=== PATIENT | female | born 1935 | race Caucasian/White ===

== ENCOUNTER 2019-07-07 03:18 | Inpatient (IN) | payer OTHER, MEDICARE ==
[2019-07-07] MEDS ORDERED: SODIUM CHLORIDE 500 ML IV STA (04:44)
[2019-07-07] MEDS ORDERED: ACETAMINOPHEN 1000 MG/100 ML VIAL (NON FORMULARY) IVPB ONE (04:45)
[2019-07-07] MEDS ORDERED: ACETAMINOPHEN INJECTION 100 ML IVPB ONE (05:03)
[2019-07-07 05:07] LABS: BASO % 0.1 % (0-2.0); EOS % 0.2 % (0-4.5); HEMATOCRIT 35.8 % (32.4-45.2); HEMOGLOBIN 12.1 GM/dL (10.7-15.3); LYMPH % 4.3 % (8-40); MCH 33.7 pg (25.7-33.7); MCHC 33.8 g/dl (32.0-36.0); MEAN CELL VOLUME 99.5 fl (80-96); MEAN PLT VOLUME 7.3 fl (7.5-11.1); MONO % 8.7 % (3.8-10.2); NEUT % 86.7 % (42.8-82.8); PLATELET COUNT 319 K/MM3 (134-434); RDW 12.9 % (11.6-15.6); WHITE BLOOD COUNT 12.3 K/mm3 (4.0-10.0)
--- NOTE | 2019-07-07 05:24 | PDOC ---
Attending Attestation - Resident Resident Name: Kevyn Silva - ED Attending Attestation I have performed the following: I have examined & evaluated the patient, The case was reviewed & discussed with the resident, I agree w/resident's findings & plan, Exceptions are as noted - HPI HPI: 07/07/19 07:35 84F pmh COPD, AFib, HTN, here after a fall early this morning. Unclear if mechanical or syncopal, denies prodrome, dizziness, sob. Endorses substernal, L sided, squeezing chest pain, radiating to neck and shoulder. States she has been falling frequently over the past several weeks. - Physicial Exam PE: 07/07/19 07:36 Agree with exam as documented by resident - Medical Decision Making 07/07/19 07:37 84F c/o typical chest pain, frequent falls, eval for UTI, trauma pathology f/u labs, ekg, cxr, ctb, ctcs mild wbc elevation ekg slow afib, no ischemia UA neg initial trop neg will need admission for w/u of typical cp hold asa for results of ctb/cs
[2019-07-07 05:27] LABS: INR 1.84 (0.83-1.09); PROTHROMBIN TIME (PATIENT) 21.9 SEC (9.7-13.0)
--- NOTE | 2019-07-07 05:30 | PDOC ---
History of Present Illness - General Chief Complaint: Injury Stated Complaint: FALL Time Seen by Provider: 07/07/19 04:33 History Source: Patient Exam Limitations: Clinical Condition - History of Present Illness Initial Comments: Virginia Milton is an 84 yo F w a pmh of COPD, colitis, chronic UTI's, HTN, lung nodule cancer, afib, anxiety, and insomnia who presents to the ER after she fell down this morning at 3 am. Now the patient has chest, neck, and back pain. The patient states her chest pain is substernal and radiates to the neck, shoulder, and back. The patient states she has been falling down frequently lately. She wishes she had one of those buttons she could click to call for help. She states she did not hit her head or experience any LOC. She states that she is on multiple blood thinners - both anti-coagulants and anti- platelets but she does not know the names of the blood thinners she is on. PCP: Dr. Haines Cards: Dr. Jules PSH: appendectomy, cholecystectomy Social Hx: Lives alone has no help. Denies current smoking, drinking, or substance usage. Past History - Past Medical History Allergies/Adverse Reactions: Allergies Allergy/AdvReac Type Severity Reaction Status Date / Time meperidine HCl [From Demerol] AdvReac Intermediate Vomiting Verified 07/07/19 03 :29 lactose-intolerant AdvReac Uncoded 07/07/19 03:29 Home Medications: Ambulatory Orders Carvedilol [Coreg -] 3.125 mg PO BID 07/07/19 Dabigatran Etexilate Mesylate [Pradaxa -] 150 mg PO BID 07/07/19 Digoxin [Lanoxin -] 0.125 mg PO DAILY 07/07/19 Fluticasone Prop 0.05% Nasal [Flonase -] 1 - 2 spray NS DAILY PRN 07/07/19 Umeclidinium [place] [Incruse Ellipta] 62.5 mcg IH DAILY 07/07/19 Anemia: No Asthma: No Cancer: Yes ((L) BREAST LUMPECTOMY) Cardiac Disorders: Yes (A.FIB) CVA: No COPD: No CHF: No Dementia: No Diabetes: No GI Disorders: Yes (COLITIS / DIVERTICULITIS) Disorders: (chronic UTI's) HTN: Yes Hypercholesterolemia: No Liver Disease: No Seizures: No Thyroid Disease: No - Surgical History Abdominal Surgery: Yes Appendectomy: Yes Cardiac Surgery: No Cholecystectomy: Yes Lung Surgery: No Neurologic Surgery: No Orthopedic Surgery: No - Immunization History Td Vaccination: Yes TDAP Vaccination: No Immunization Up to Date: Yes - Suicide/Smoking/Psychosocial Hx Smoking History: Never smoked Have you smoked in the past 12 months: No If you are a former smoker, when did you quit?: 40 years ago Hx Alcohol Use: Yes (occasional wine) Drug/Substance Use Hx: No Substance Use Type: Alcohol Hx Substance Use Treatment: No Review of Systems - Review of Systems Able to Perform ROS?: No (Poor historian) *Physical Exam - Vital Signs Last Vital Signs Temp Pulse Resp BP Pulse Ox 98.6 F 83 18 152/74 100 07/07/19 03:22 07/07/19 03:22 07/07/19 03:22 07/07/19 03:07/07/19 03:22 - Physical Exam Comments: GENERAL: Patient is awake, alert and in no acute distress. Speech is clear and appropriate. HEAD: Atraumatic and nontender. HEENT: Pupils are equal round and reactive to light, extraocular movements are intact. The tympanic membranes are clear, no hemotympanum. No facial deformity. No facial bone tenderness or step-off. No nasal septal hematoma. The oropharynx is clear. NECK: The trachea is midline, there is no stridor. There is no midline cervical spine tenderness, full range of motion of neck. CHEST: Non-tender, no ecchymosis or abrasions. Equal chest wall expansion bilaterally. No flail segments. Lungs are clear to auscultation bilaterally. CARDIOVASCULAR: S1-S2, regular rate and rhythm. No murmurs or rubs. ABDOMEN: Soft, nontender, nondistended. Bowel sounds are normoactive. There is no abdominal or flank ecchymosis. BACK/PELVIS: There is no midline thoracic or lumbosacral spine tenderness or step-off. Pelvis is stable and nontender. EXTREMITIES: There is no extremity deformity or joint swelling. No focal bony tenderness throughout. 2+ distal pulses throughout. NEURO: Alert and oriented x3. Cranial nerves II through XII are intact. 5 out of 5 motor strength x4 extremities. No gross sensory deficits. [id number] is intact. No pronator drift. SKIN: No abrasions, hematomas, lacerations. PSYCH: Affect is appropriate ED Treatment Course - LABORATORY CBC & Chemistry Diagram: 07/07/19 13:23 07/07/19 13:23 - ADDITIONAL ORDERS Additional order review: Laboratory Results 07/07/19 04:55 PT with INR 21.90 H INR 1.84 H 07/07/19 04:55 RBC 3.60 MCV 99.5 H MCHC 33.8 RDW 12.9 D MPV 7.3 L Neutrophils % 86.7 H Lymphocytes % 4.3 L D Monocytes % 8.7 Eosinophils % 0.2 D Basophils % 0.1 - RADIOLOGY Radiology Studies Ordered: Category Date Time Status CHEST X-RAY PORTABLE* [RAD] Stat Radiology 07/07/19 04:45 Ordered - Medications Given in the ED: ED Medications Discontinued Medications Generic Name Dose Route Start Last Admin Trade Name Freq PRN Reason Stop Dose Admin Acetaminophen 1,000 mg 07/07/19 04:45 07/07/19 05:10 Ofirmev Injection - IVPB 07/07/19 04:46 1,000 mg ONCE ONE Administration Medical Decision Making - Medical Decision Making Virginia Milton is an 84 yo F w a pmh of COPD, colitis, chronic UTI's, HTN, lung nodule cancer, afib, anxiety, and insomnia who presents to the ER after she fell down this morning at 3 am. Now the patient has chest, neck, and back pain. The patient states her chest pain is substernal and radiates to the neck, shoulder, and back. The patient states she has been falling down frequently lately. She wishes she had one of those buttons she could click to call for help. She states she did not hit her head or experience any LOC. She states that she is on multiple blood thinners - both anti-coagulants and anti- platelets but she does not know the names of the blood thinners she is on. Vital Signs Temp Pulse Resp BP Pulse Ox 98.6 F 83 18 152/74 100 07/07/19 03:22 07/07/19 03:22 07/07/19 03:22 07/07/19 03:22 07/07/19 03:22 DDx IBNLT: ACS/TN, arrhythmia, repeated falls, UTI, ICH, cervical fx, Plan: Labs, urine, CXR, ekg, head/neck CT, analgesia, Admit to [facility] for chest pain and repeated falls. Labs: Leukocytosis with left shift, elevated BUN Urine: Unremarkable CXR: Unremarkable EKG: A-fib irreg irreg, IRBBB, non-specific ST abnormality HeadCT: No acute pathology Cervical CT: No acute pathology Disposition: Admit to hospital for Chest pain and repeated falls. Patient will be signed out to day team to complete admission *DC/Admit/Observation/Transfer Diagnosis at time of Disposition: Frequent falls Chest pain Qualifiers: Chest pain type: unspecified Qualified Code(s): R07.9 - Chest pain, unspecified - Discharge Dispostion Condition at time of disposition: Stable - Referrals - Patient Instructions - Post Discharge Activity
[2019-07-07 06:07] LABS: ALK PHOS 132 U/L (45-117); ANION GAP 12 MMOL/L (8-16); BILIRUBIN,TOTAL 0.8 mg/dL (0.2-1); BLOOD UREA NITROGEN 23.7 mg/dL (7-18); CALCIUM 8.7 mg/dL (8.5-10.1); CHLORIDE 100 mmol/L (98-107); CO2 24 mmol/L (21-32); GLUCOSE,RANDOM 118 mg/dL (74-106); POTASSIUM 5.4 mmol/L (3.5-5.1); SGOT/AST 66 U/L (15-37); SGPT/ALT 26 U/L (13-61); SODIUM 137 mmol/L (136-145); TOT PROT 7.4 g/dl (6.4-8.2)
[2019-07-07 06:41] LABS: URINE APPEARANCE CLEAR; URINE BILIRUBIN NEGATIVE (NEGATIVE); URINE COLOR YELLOW; URINE GLUCOSE (UA) NEGATIVE (NEGATIVE); URINE KETONE TRACE (NEGATIVE); URINE LEUK ESTERASE NEGATIVE (NEGATIVE); URINE NITRITE NEGATIVE (NEGATIVE); URINE PROTEIN TRACE (NEGATIVE)
--- NOTE | 2019-07-07 07:26 | PDOC ---
*Physical Exam - Vital Signs Last Vital Signs Temp Pulse Resp BP Pulse Ox 98.6 F 90 20 138/86 100 07/07/19 03:22 07/07/19 06:36 07/07/19 06:36 07/07/19 06:36 07/07/19 03:22 ED Treatment Course - LABORATORY CBC & Chemistry Diagram: 07/07/19 04:55 07/07/19 04:55 - ADDITIONAL ORDERS Additional order review: Laboratory Results 07/07/19 07/07/19 07/07/19 06:30 04:55 04:55 PT with INR 21.90 H INR 1.84 H Sodium 137 Potassium 5.4 H Chloride 100 Carbon Dioxide 24 Anion Gap 12 BUN 23.7 H Creatinine 1.0 Est GFR (CKD-EPI)AfAm 59.08 Est GFR (CKD-EPI)NonAf 50.97 Random Glucose 118 H Calcium 8.7 Magnesium 2.0 Total Bilirubin 0.8 AST 66 H ALT 26 Alkaline Phosphatase 132 H Creatine Kinase 98 Troponin I < 0.02 Total Protein 7.4 Albumin 3.0 L Urine Color Yellow Urine Appearance Clear Urine pH 5.0 Ur Specific [place] 1.030 Urine Protein Trace Urine Glucose (UA) Negative Urine Ketones Trace H Urine Blood Negative Urine Nitrite Negative Urine Bilirubin Negative Urine Urobilinogen 1.0 Ur Leukocyte Esterase Negative 07/07/19 04:55 RBC 3.60 MCV 99.5 H MCHC 33.8 RDW 12.9 D MPV 7.3 L Neutrophils % 86.7 H Lymphocytes % 4.3 L D Monocytes % 8.7 Eosinophils % 0.2 D Basophils % 0.1 - Medications Given in the ED: ED Medications Discontinued Medications Generic Name Dose Route Start Last Admin Trade Name Freq PRN Reason Stop Dose Admin Acetaminophen 1,000 mg 07/07/19 04:45 07/07/19 05:10 Ofirmev Injection - IVPB 07/07/19 04:46 1,000 mg ONCE ONE Administration Sodium Chloride 500 mls @ 500 mls/hr 07/07/19 04:44 07/07/19 05:09 Normal Saline - IV 07/07/19 05:43 500 mls/hr ASDIR STA Administration Medical Decision Making - Medical Decision Making Pt was signed out to me by resident Dr. Silva, who explained the presentation, ED course, any pending results, and needed interventions. Pending results include non-contrast CT head and C-spine. Pt is currently stable and is lying comfortably. 07/07/19 07:22 CT head and C-spine with no acute pathology Paging hospitalist team for admission. 07/07/19 09:36 Pt admitted to hospitalist team (Dr. Sanabria) for cardiac consultation. 07/07/19 10:31 *DC/Admit/Observation/Transfer Diagnosis at time of Disposition: Frequent falls Chest pain Qualifiers: Chest pain type: unspecified Qualified Code(s): R07.9 - Chest pain, unspecified - Discharge Dispostion Condition at time of disposition: Stable Decision to Admit order: Yes - Referrals Referrals: Fercho Haines MD [Primary Care Provider] - - Patient Instructions - Post Discharge Activity
[2019-07-07] MEDS ORDERED: morphine CARPU-JECT 4 MG/1 ML DISP.SYRIN IVPUSH ONE (07:28)
[2019-07-07] MEDS ORDERED: MORPHINE SULFATE 2 MG/ML VIAL ONE (08:08)
--- NOTE | 2019-07-07 11:28 | HP ---
CHIEF COMPLAINT: Fall PCP: Dr. Haines HISTORY OF PRESENT ILLNESS: 84 y/o F with PMHx of AFib (on NOAC), Chronic bronchitis (?COPD, not on home O2) , HTN, Chronic UTI's, Diverticulitis, Colitis, Cataracts, Anxiety, Insomnia presents after a mechanical fall, with 3 week hx of chest pain. Last evening aroun 20:30 hours, patient walked into a dark room, tripped over an object and fell into a laundry basket and landed on her right shoulder. Since then she has had worsening Right shoulder, neck and knee pain. Denies any preceeding dizziness, lightheadedness or any subsequent LOC or hitting her head. She then crawled to her bed, eventually pulling herself up and took 2 tylenol. The pain in her back and neck continued to worsen prompting her to visit the ED. She mentions that her chronic bronchitis is worsening now with increasing cough productive of more clear sputum. She started to have a chest pain 3 weeks ago described as a dull pain, 5/10 over both sides of her chest that she thought was due to her coughing. Last night, her pain worsened after the fall to a 10/ 10 sharp, nonreproducbile pain over her left chest without any radiation. She is unable to identify any trigger but mentions it worsens with coughing. Additionally, Tylenol provides some releif. She is medication complaint. Otherwise denies any associated trauma or falls. Her last meal was yesterday evening and her last BM was yesterday. Denies any associated fevers, chills, SOB, nausea, vomiting. diarrhea. 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, Has a daughter in [place] who checks on her Ambulation: With Can Family History: Discussed with patient, noncontributory Allergies meperidine HCl [From Demerol] Adverse Reaction (Intermediate, Verified 07/07/19 03:29) Vomiting NAUSEA lactose-intolerant Adverse Reaction (Uncoded 07/07/19 03:29) HOME MEDICATIONS: Home Medications Medication Instructions Recorded Carvedilol [Coreg -] 3.125 mg PO BID 07/07/19 Dabigatran Etexilate Mesylate 150 mg PO BID 07/07/19 [Pradaxa -] Digoxin [Lanoxin -] 0.125 mg PO DAILY 07/07/19 Fluticasone Prop 0.05% Nasal 1 - 2 spray NS DAILY PRN 07/07/19 [Flonase -] Umeclidinium [place] [Incruse 62.5 mcg IH 07/07/19 Ellipta] REVIEW OF SYSTEMS As per HPI PHYSICAL EXAMINATION Vital Signs - 24 hr 07/07/19 07/07/19 07/07/19 03:22 06:36 10:22 Temperature 98.6 F 97.6 F Pulse Rate 83 Pulse Rate [ 90 Apical] Pulse Rate [ 91 H Left Radial] Respiratory 18 20 17 Rate Blood Pressure 152/74 Blood Pressure 138/86 127/70 [Right Arm] O2 Sat by Pulse 100 97 Oximetry (%) GENERAL: A&Ox3, NAD HEAD: NCAT EYES: PERRL, EOMI EARS, NOSE, THROAT: Oropharynx clear without exudates. Moist mucous membranes. Hard of hearing. NECK: Supple, No JVD LUNGS: CTAB. No wheezes, no crackles HEART: Regular rate and rhythm, normal S1 and S2 without murmur ABDOMEN: Soft, nontender, not distended, + bowel sounds, no guarding, no rebound MUSCULOSKELETAL: No CVA tenderness. Tender to palpation over the R Superior humerus, No lan deformity felt, No laceration or abrasion, ROM Intact EXTREMITIES: No peripheral edema. NEUROLOGICAL: Cranial nerves II-XII intact. Normal speech. Gross sensation intact throughout. 5/5 muscle strength to handgrip, elbow flexion/extension. SKIN: Warm, dry, 3-4cm Red ecchymossis over Right knee Laboratory Results - last 24 hr 07/07/19 07/07/19 07/07/19 04:55 04:55 04:55 WBC 12.3 H RBC 3.60 Hgb 12.1 Hct 35.8 MCV 99.5 H MCH 33.7 MCHC 33.8 RDW 12.9 D Plt Count 319 MPV 7.3 L Absolute Neuts (auto) 10.7 H Neutrophils % 86.7 H Lymphocytes % 4.3 L D Monocytes % 8.7 Eosinophils % 0.2 D Basophils % 0.1 Nucleated RBC % 0 PT with INR 21.90 H INR 1.84 H Sodium 137 Potassium 5.4 H Chloride 100 Carbon Dioxide 24 Anion Gap 12 BUN 23.7 H Creatinine 1.0 Est GFR (CKD-EPI)AfAm 59.08 Est GFR (CKD-EPI)NonAf 50.97 Random Glucose 118 H Calcium 8.7 Magnesium 2.0 Total Bilirubin 0.8 AST 66 H ALT 26 Alkaline Phosphatase 132 H Creatine Kinase 98 Troponin I < 0.02 Total Protein 7.4 Albumin 3.0 L Urine Color Urine Appearance Urine pH Ur Specific [place] Urine Protein Urine Glucose (UA) Urine Ketones Urine Blood Urine Nitrite Urine Bilirubin Urine Urobilinogen Ur Leukocyte Esterase 07/07/19 06:30 WBC RBC Hgb Hct MCV MCH MCHC RDW Plt Count MPV Absolute Neuts (auto) Neutrophils % Lymphocytes % Monocytes % Eosinophils % Basophils % Nucleated RBC % PT with INR INR Sodium Potassium Chloride Carbon Dioxide Anion Gap BUN Creatinine Est GFR (CKD-EPI)AfAm Est GFR (CKD-EPI)NonAf Random Glucose Calcium Magnesium Total Bilirubin AST ALT Alkaline Phosphatase Creatine Kinase Troponin I Total Protein Albumin Urine Color Yellow Urine Appearance Clear Urine pH 5.0 Ur Specific [place] 1.030 Urine Protein Trace Urine Glucose (UA) Negative Urine Ketones Trace H Urine Blood Negative Urine Nitrite Negative Urine Bilirubin Negative Urine Urobilinogen 1.0 Ur Leukocyte Esterase Negative Active Medications Acetaminophen (Tylenol -) 650 mg PO Q4H PRN PRN Reason: PAIN OR FEVER Sodium Chloride (Normal Saline -) 1,000 mls @ 42 mls/hr IV ASDIR [place] IMAGING: -CXR: A single AP view of the chest is submitted. There is a large heart, sclerotic knob and coarse lung changes. There is some ill-defined nodular densities. Angles are sharp. The soft tissues are intact. For more complete evaluation, further imaging with CT may be of help. -Head CT without contrast: Moderate atrophy and mild periventricular chronic microvascular ischemic disease changes. No gross CT evidence of acute intracranial pathology is identified. The calvarium is intact. Interval opacification of the right maxillary antrum likely related to sinusitis and less likely posttraumatic. Correlate for further evaluation -C-Spine CT without contrast: Minimal anterolisthesis of C4 over C5, likely degenerative. Otherwise, no compression fracture or subluxation is identified. Multilevel degenerative disc disease and significant bilateral facet hypertrophy as well as fusion of the left posterior elements of C4-C5, as described above. Biapical pleural thickening and COPD changes -EKG: AFib, Incomplete RBBB, VR 92, QTc 445 -ECHO: RWMA cannot be excluded, LV Systolic function is grossly normal, RV is borderline dilated and systolic function is grossly normal, LA is borderline dilated, RA is moderately dilated, Moderate to severe TR ASSESSMENT/PLAN: 84 y/o F with PMHx of AFib (on NOAC), Chronic bronchitis (?COPD, not on home O2) , HTN, Chronic UTI's, Diverticulitis, Colitis, Cataracts, Anxiety, Insomnia presents after a mechanical fall, with 3 week hx of chest pain. #Chest pain -Likely MSK VS Pleuritic however given risk factors must R/O ACS -Trops negative x2, Check Lipid panel -Echo, EKG noted above -Cardio (Dr. Jules) consulted by ED -Tele #s/p Mechanical Fall -Imaging noted above to r/o acute head bleed or c-spine dx -Pain control via acetaminophen -Physical therapy -R Knee and R Shoulder XRay ordered #Elevated Alk Phos -In the setting of possible abdominal pain -Check RUQ US to r/o Obstruction, Hep Panel, GGT #Hyperkalemia -without related EKG changes, Trend #FEN -NS @ 42 mls/hr -Lytes WNL, Replete PRN -Keep NPO for possible stress test #PPx -DVT: NOAC Dispo: Tele-Obs Visit type - Emergency Visit Emergency Visit: Yes ED Registration Date: 07/07/19 Care time: The patient presented to the Emergency Department on the above date and was hospitalized for further evaluation of their emergent condition. - New Patient This patient is new to me today: Yes Date on this admission: 07/07/19 - Critical Care Critical Care patient: No ATTENDING PHYSICIAN STATEMENT I saw and evaluated the patient. I reviewed the resident's note and discussed the case with the resident. I agree with the resident's findings and plan as documented. SUBJECTIVE: OBJECTIVE: ASSESSMENT AND PLAN:
[2019-07-07] MEDS ORDERED: SODIUM CHLORIDE 1,000 ML IV SCH (11:30)
--- NOTE | 2019-07-07 13:20 | ECHO ---
Name: April Exam:Adult Echocardiogram Study Date: 07/07/2019 12:24 PM Age: 84 yrs Reason For Study: Tachycardia Height: 64 in Weight: 109 lb BSA: 1.5 m2 MMode/2D Measurements & Calculations IVSd: 0.86 cm Ao root diam: 2.9 cm LVIDd: 2.9 cm LA dimension: 3.5 cm LVIDs: 2.1 cm LVPWd: 0.93 cm LVPWs: 1.2 cm EDV(Teich): 31.5 ml ESV(Teich): 14.9 ml LVOT diam: 2.1 cm Doppler Measurements & Calculations Ao V2 max: 89.2 cm/sec LV V1 max P.8 mmHg Ao max P.2 mmHg LV V1 mean P.92 mmHg Ao V2 mean: 62.8 cm/sec LV V1 max: 67.1 cm/sec Ao mean P.0 mmHg LV V1 mean: 43.7 cm/sec Ao V2 VTI: 15.9 cm LV V1 VTI: 13.1 cm SHALOM(I,D): 2.7 cm2 SHALOM(V,D): 2.5 cm2 SV(LVOT): 43.4 ml TR max jimenez: 275.0 cm/sec TR max P.3 mmHg RVSP(TR): 40.3 mmHg PA V2 max: 64.8 cm/sec RAP systole: 10.0 mmHg PA max P.7 mmHg Procedure The study was technically difficult with many images being suboptimal in quality. Left Ventricle Left ventricular systolic function is grossly normal. Regional wall motion abnormalities cannot be ex cluded due to limited visualization. Right Ventricle The right ventricle is borderline dilated. The right ventricular systolic function is grossly normal. Atria The left atrium is borderline dilated. The right atrium is moderately dilated. The interatrial septum is not well seen but appears grossly intact with no obvious shunt by color doppler. Mitral Valve The mitral valve is normal in structure and function. There is no mitral valve stenosis. There is tra ce mitral regurgitation. Tricuspid Valve The tricuspid valve is normal in structure and function. There is moderate to severe tricuspid regurg itation. Right ventricular systolic pressure is elevated at 40-50mmHg. Aortic Valve The aortic valve opens well. No hemodynamically significant valvular aortic stenosis. No aortic regur gitation is present. Pulmonic Valve The pulmonic valve is not well seen, but is grossly normal. There is no pulmonic valvular stenosis. T here is no pulmonic valvular regurgitation. Great Vessels The aortic root is normal size. Pericardium/Pleura There is no pericardial effusion. Interpretation Summary The study was technically difficult with many images being suboptimal in quality. Regional wall motion abnormalities cannot be excluded due to limited visualization. Left ventricular systolic function is grossly normal. The right ventricle is borderline dilated. The right ventricular systolic function is grossly normal. The left atrium is borderline dilated. The right atrium is moderately dilated. The interatrial septum is not well seen but appears grossly intact with no obvious shunt by color dop pler. There is moderate to severe tricuspid regurgitation. Right ventricular systolic pressure is elevated at 40-50mmHg. There is no pericardial effusion. MD Esparza *Kirstie 07/07/2019 01:20 PM
[2019-07-07 13:38] LABS: BASO % 0.5 % (0-2.0); EOS % 0.2 % (0-4.5); HEMATOCRIT 35.2 % (32.4-45.2); HEMOGLOBIN 11.7 GM/dL (10.7-15.3); LYMPH % 4.8 % (8-40); MCH 33.1 pg (25.7-33.7); MCHC 33.2 g/dl (32.0-36.0); MEAN CELL VOLUME 99.7 fl (80-96); MEAN PLT VOLUME 7.3 fl (7.5-11.1); MONO % 9.1 % (3.8-10.2); NEUT % 85.4 % (42.8-82.8); PLATELET COUNT 330 K/MM3 (134-434); RBC 3.53 M/mm3 (3.60-5.2); RDW 12.7 % (11.6-15.6); WHITE BLOOD COUNT 12.7 K/mm3 (4.0-10.0)
--- NOTE | 2019-07-07 14:00 | EKG ---
Test Reason : Blood Pressure : / mmHG Vent. Rate : 092 BPM Atrial Rate : 340 BPM P-R Int : 000 ms QRS Dur : 096 ms QT Int : 360 ms P-R-T Axes : 000 -02 163 degrees QTc Int : 445 ms ATRIAL FIBRILLATION INCOMPLETE RIGHT BUNDLE BRANCH BLOCK NONSPECIFIC ST ABNORMALITY ABNORMAL QRS-T ANGLE, CONSIDER PRIMARY T WAVE ABNORMALITY ABNORMAL ECG WHEN COMPARED WITH ECG OF 07-JUL-2019 04:47, NO SIGNIFICANT CHANGE WAS FOUND Confirmed by THU CHAVEZ MD ([id number]) on 07/07/2019 1:59:39 PM Referred By: Confirmed By:THU CHAVEZ MD
--- NOTE | 2019-07-07 14:01 | EKG ---
Test Reason : Blood Pressure : / mmHG Vent. Rate : 085 BPM Atrial Rate : 340 BPM P-R Int : 000 ms QRS Dur : 096 ms QT Int : 376 ms P-R-T Axes : 000 002 -71 degrees QTc Int : 447 ms ATRIAL FIBRILLATION INCOMPLETE RIGHT BUNDLE BRANCH BLOCK NONSPECIFIC ST ABNORMALITY ABNORMAL ECG WHEN COMPARED WITH ECG OF 20-MAR-2015 14:06, NO SIGNIFICANT CHANGE WAS FOUND Confirmed by THU CHAVEZ MD ([id number]) on 07/07/2019 2:00:40 PM Referred By: Confirmed By:THU CHAVEZ MD
[2019-07-07 14:38] LABS: ALBUMIN 2.9 g/dl (3.4-5.0); ALK PHOS 144 U/L (45-117); ANION GAP 12 MMOL/L (8-16); BILIRUBIN,TOTAL 0.8 mg/dL (0.2-1); BLOOD UREA NITROGEN 19.8 mg/dL (7-18); CALCIUM 8.8 mg/dL (8.5-10.1); CHLORIDE 103 mmol/L (98-107); CHOLESTEROL 155 mg/dL (50-200); CO2 22 mmol/L (21-32); CREATININE 0.7 mg/dL (0.55-1.3); GLUCOSE,RANDOM 88 mg/dL (74-106); HDL CHOLESTEROL 60 mg/dL (40-60); PHOSPHOROUS 3.2 mg/dL (2.5-4.9); POTASSIUM 4.5 mmol/L (3.5-5.1); SGOT/AST 39 U/L (15-37); SGPT/ALT 26 U/L (13-61); SODIUM 136 mmol/L (136-145); TRIGLYCERIDES 54 mg/dL (0-150)
--- NOTE | 2019-07-07 17:02 | PN ---
Teaching Attending Note Name of Resident: Karla Sanchez ATTENDING PHYSICIAN STATEMENT I saw and evaluated the patient. I reviewed the resident's note and discussed the case with the resident. I agree with the resident's findings and plan as documented. SUBJECTIVE:84 y/o F with PMHx of AFib (on NOAC), Chronic bronchitis (?COPD, not on home O2), HTN, Chronic UTI's, Diverticulitis, Colitis, Cataracts, Anxiety, Insomnia presents after a mechanical fall, with 3 week hx of chest pain. pt tripped yesterday landing on her right side and been having pain in her shoulder and knee. pain did not resolve with tylenol so she came to the ER. admits to gradual weight loss over the past few years. denies fever, chills, N/V /C/D, numbness or tingling OBJECTIVE: Last Vital Signs Temp Pulse Resp BP Pulse Ox 98.7 F 111 H 16 121/64 93 L 07/07/19 15:38 07/07/19 15:38 07/07/19 15:38 07/07/19 15:38 07/07/19 15:38 General NAD, bitemporal wasting, prominent clavicles CV S1 S2 tachy + L sided chest pain Lungs CTA B/l no wheezing/rales/rhonchi Abdomen soft NT/ND neg garcia sign Extremities good ROM of B/L shoulders. no point tenderness ASSESSMENT AND PLAN: 84 y/o F with PMHx of AFib (on NOAC), Chronic bronchitis (?COPD, not on home O2) , HTN, Chronic UTI's, Diverticulitis, Colitis, Cataracts, Anxiety, Insomnia presents after a mechanical fall, with 3 week hx of chest pain. 1. CP- has been ongoing for 3 weeks and appears to be muscular at this time. trop neg x2. echo done. last stress test was 2 years ago per patient. cardio consulted. will reach out to her video conference specialist to see if stress test should be completed 2. s/p mechanical fall- will obtain XR of shoulder and knee. remaining imaging is negative. PT eval 3. elevated alk phos- had questionable abdominal pain this am on arrival. abodminal u/s ordered. has cholecystectomy in the past. will check hepatitis panel, ggt 4. hyperkalemia- no peaked t waves. repeat 5. leukocytosis- liekly stress related. no signs of infection. hold abx 6. malnutrition- evident by body habitus and reports of weight loss. can not specify how much weights. states she has good appetite. claims completed routine cancer screening. will order ensures. encourage po intake 7. afib on pradaxa-tachy on exam, could be due to pain and agitation (wanted to eat). will monitor and adjust meds as needed 8. HTN- controlled. cont home meds 9. DVT ppx- pradaxa 10. spoke with daughter present at bedside. all questions answered. possible d/ c in AM. shes aware
--- NOTE | 2019-07-07 17:05 | CON.CARD ---
Consult Consult Specialty:: cardiology Reason for Consultation:: ?syncope; chest pain - History of Present Illness Chief Complaint: Pt A&Ox3; no chest pain presently; the pain she had earlier is reproduced by palpation of the left anterior chest wall; she is uncertain if she feel on her chest. Daughter is at bedside. History of Present Illness: 84F pmh COPD, AFib, HTN, moderate-severe pulmonary HTN, recent weight loss ( poor appetite; abdominal discomfort/nausea),anxiety, now came to hospital after a fall early this morning. Pt says she walked into her bedroom while it was dark, did not turn on the light , and fell into a hamper of clothes; it took her 1/2 hour to get herself up.Unclear if mechanical or syncopal; denies prodrome, dizziness, sob. Endorses new substernal, L sided, squeezing and sharp chest pain, radiating to neck and shoulder (the pain is reproduced by palpation of the left anterior chest wall). States she has been falling frequently over the past several weeks. Pt walks in her home; denies chest pain or dyspnea on exertion. Conveyor Installer: Dr. Isaias Egan - History Source History Provided By: Patient, Family Member (daughter), Medical Record Limitations to Obtaining History: Poor Historian - Past Medical History Cardio/Vascular: Yes: AFIB, HTN, Murmur, Pulmonary Hypertension Pulmonary: Yes: Other Gastrointestinal: Yes: GERD Reproductive: Yes: Postmenopausal ...: No Psych: Yes: Anxiety - Past Surgical History Past Surgical History: Yes: Appendectomy, Cholecystectomy - Alcohol/Substance Use Hx Alcohol Use: Yes (occasional wine) History of Substance Use: reports: None - Smoking History Smoking history: Never smoked Have you smoked in the past 12 months: No If you are a former smoker, when did you quit?: 40 years ago - Social History ADL: Independent 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 History of Recent Travel: No Home Medications - Allergies Allergies/Adverse Reactions: Allergies Allergy/AdvReac Type Severity Reaction Status Date / Time meperidine HCl [From Demerol] AdvReac Intermediate Vomiting Verified 07/07/19 03 :29 lactose-intolerant AdvReac Uncoded 07/07/19 03:29 - Home Medications Home Medications: Ambulatory Orders Carvedilol [Coreg -] 3.125 mg PO BID 07/07/19 Dabigatran Etexilate Mesylate [Pradaxa -] 150 mg PO BID 07/07/19 Digoxin [Lanoxin -] 0.125 mg PO DAILY 07/07/19 Fluticasone Prop 0.05% Nasal [Flonase -] 1 - 2 spray NS DAILY PRN 07/07/19 Umeclidinium [place] [Incruse Ellipta] 62.5 mcg IH DAILY 07/07/19 Family Disease History - Family Disease History Family Disease History: Other: Father, Mother Review of Systems - Review of Systems Constitutional: reports: Weakness Eyes: reports: No Symptoms HENT: reports: No Symptoms Neck: reports: No Symptoms Cardiovascular: reports: No Symptoms Respiratory: reports: No Symptoms Gastrointestinal: reports: Abdominal Pain Genitourinary: reports: No Symptoms Breasts: reports: No Symptoms Reported Musculoskeletal: reports: Muscle Weakness Integumentary: reports: No Symptoms Neurological: reports: Weakness Endocrine: reports: No Symptoms Hematology/Lymphatic: reports: No Symptoms Psychiatric: reports: Anxiety - Risk Factors Known Risk Factors: Yes: Age, Physical Inactivity Vital Signs: Vital Signs Temperature 98.7 F 07/07/19 15:38 Pulse Rate 111 H 07/07/19 15:38 Respiratory Rate 16 07/07/19 15:38 Blood Pressure 121/64 07/07/19 15:38 O2 Sat by Pulse Oximetry (%) 93 L 07/07/19 15:38 Abnormal Lab Results 07/07/19 07/07/19 07/07/19 06:30 13:23 13:23 WBC 12.7 H RBC 3.53 L MCV 99.7 H MPV 7.3 L Absolute Neuts (auto) 10.8 H Neutrophils % 85.4 H Lymphocytes % 4.8 L BUN 19.8 H AST 39 H Alkaline Phosphatase 144 H Albumin 2.9 L Urine Ketones Trace H Constitutional: Yes: Anxious, Thin Eyes: Yes: WNL HENT: Yes: WNL Neck: Yes: WNL Respiratory: Yes: WNL Gastrointestinal: Yes: WNL Renal/: No: Anuria JVD: No Carotid Bruit: No PMI: Non-Displaced Heart Sounds: Yes: S1, S2 Murmur: Yes: Systolic Murmur, Grade 2 Musculoskeletal: Yes: Muscle Weakness Extremities: Yes: WNL Peripheral Pulses WNL: No Integumentary: Yes: WNL Neurological: Yes: Alert, Oriented Psychiatric: Yes: Alert, Oriented, Other (anxiety) - Other Data Labs, Other Data: CBC, BMP 07/07/19 13:23 07/07/19 13:23 INR, PTT INR 1.84 (0.83-1.09) H 07/07/19 04:55 Troponin, BNP 07/07/19 07/07/19 04:55 13:23 Troponin I < 0.02 < 0.02 Troponin, BNP 07/07/19 07/07/19 04:55 13:23 Troponin I < 0.02 < 0.02 Abnormal Lab Results 07/07/19 07/07/19 07/07/19 06:30 13:23 13:23 WBC 12.7 H RBC 3.53 L MCV 99.7 H MPV 7.3 L Absolute Neuts (auto) 10.8 H Neutrophils % 85.4 H Lymphocytes % 4.8 L BUN 19.8 H AST 39 H Alkaline Phosphatase 144 H Albumin 2.9 L Urine Ketones Trace H Echo: Report Reviewed Ejection Fraction %: LVEF > or = 40 % Imaging - Results Chest X-ray: Image Reviewed EKG: Image Reviewed Problem List - Problems (1) Frequent falls Assessment/Plan: uncertain if pt has had fainting. F/u orthostatic vital signs. Avoid dehydration (hx weight loss in the past several months; ? hx breast CA, and pt has reportedly had recent CA workup). Poor appetite, abdominal discomfort and nausea, but hungry now. ECHO: normal LVEF. Abdominal US results pending. Code(s): R29.6 - REPEATED FALLS (2) Atrial fibrillation Assessment/Plan: On carvedilol. On digoxin (fall level, and keep 0.5-1.0 if this medication is to be continued). Takes Pradaxa as anticoagulant. (3) Atypical chest pain Assessment/Plan: Pt has no chest pain presently; chest pain is reproduced with palpation of left anterior chest wall. TNI < 0.02 x 2. EKG: Nonspecific ST changes; AF, incomplete RBBB (compared to 2015, there were no significant changes). ECHO: normal LVEF; moderately severe pulmonary HTN. Pt says she had stress test done as outpatient about 2 years ago (restaurant shift supervisor: Isaias Egan). From caridac standpoint, if workup for syncope is negative, pt may be followed up as an outpatient. Code(s): R07.89 - OTHER CHEST PAIN (4) HTN Assessment/Plan: on carvedilol (5) Leukocytosis Assessment/Plan: afebrile since entrance to hospital. Code(s): D72.829 - ELEVATED WHITE BLOOD CELL COUNT, UNSPECIFIED (6) Moderate to severe pulmonary hypertension Code(s): I27.20 - PULMONARY HYPERTENSION, UNSPECIFIED
[2019-07-07] MEDS: DIGOXIN 0.125 MG TABLET (FP) PO SCH (18:49)
[2019-07-07] MEDS: ACETAMINOPHEN 325 MG TABLET (FP) PO PRN (19:44)
[2019-07-07] MEDS: DABIGATRAN ETEXILATE MESYLATE 150 MG CAPSULE PO SCH (21:00)
[2019-07-07] MEDS: CARVEDILOL 3.125 MG TABLET (FP) PO SCH (21:00)
[2019-07-08 07:07] LABS: BASO % 0.3 % (0-2.0); EOS % 0.4 % (0-4.5); HEMATOCRIT 33.5 % (32.4-45.2); HEMOGLOBIN 11.2 GM/dL (10.7-15.3); LYMPH % 7.9 % (8-40); MCH 33.2 pg (25.7-33.7); MCHC 33.4 g/dl (32.0-36.0); MEAN CELL VOLUME 99.4 fl (80-96); MEAN PLT VOLUME 7.8 fl (7.5-11.1); MONO % 10.1 % (3.8-10.2); NEUT % 81.3 % (42.8-82.8); PLATELET COUNT 311 K/MM3 (134-434); RBC 3.37 M/mm3 (3.60-5.2); RDW 12.8 % (11.6-15.6); WHITE BLOOD COUNT 9.4 K/mm3 (4.0-10.0)
[2019-07-08 07:46] LABS: ALBUMIN 2.4 g/dl (3.4-5.0); BILIRUBIN,TOTAL 0.5 mg/dL (0.2-1); BLOOD UREA NITROGEN 25.7 mg/dL (7-18); CALCIUM 8.4 mg/dL (8.5-10.1); CREATININE 0.8 mg/dL (0.55-1.3); PHOSPHOROUS 3.1 mg/dL (2.5-4.9); POTASSIUM 4.9 mmol/L (3.5-5.1); TOT PROT 5.8 g/dl (6.4-8.2)
[2019-07-08] MEDS: DIGOXIN 0.125 MG TABLET (FP) PO SCH (09:40)
[2019-07-08] MEDS: CARVEDILOL 3.125 MG TABLET (FP) PO SCH ×2 (09:41→21:02)
[2019-07-08] MEDS: TIOTROPIUM BROMIDE 2.5 MCG (SPIRIVA) RESPIMAT INHALER IH SCH (09:41)
[2019-07-08] MEDS ORDERED: PT OWN MED DRAWER 7, Y5N ONE (09:43)
[2019-07-08] MEDS: DABIGATRAN ETEXILATE MESYLATE 150 MG CAPSULE PO SCH ×2 (09:44→21:02)
--- NOTE | 2019-07-08 11:20 | PN ---
Progress Note, Physician Chief Complaint: Events noted Coverage for Dr. Jules and Dr. Campos Not in distress History of Present Illness: Patient was seen and examined. Awake and alert. Chart was reviewed Denies chest pain, SOB or palpitations - Current Medication List Current Medications: Active Medications Acetaminophen (Tylenol -) 650 mg PO Q4H PRN PRN Reason: PAIN OR FEVER Last Admin: 07/07/19 19:44 Dose: 650 mg Carvedilol (Coreg -) 3.125 mg PO BID [facility] Last Admin: 07/08/19 09:41 Dose: 3.125 mg Dabigatran (Pradaxa -) 150 mg PO BID [facility] Last Admin: 07/08/19 09:44 Dose: 150 mg Digoxin (Lanoxin -) 0.125 mg PO DAILY [facility] Last Admin: 07/08/19 09:40 Dose: 0.125 mg Tiotropium [place] (Spiriva Respimat) 2 puff IH DAILY [facility] Last Admin: 07/08/19 09:41 Dose: 2 puff - Objective Vital Signs: Vital Signs Temperature 98.1 F 07/08/19 08:55 Pulse Rate 92 H 07/08/19 09:40 Respiratory Rate 22 H 07/08/19 08:55 Blood Pressure 122/65 07/08/19 08:55 O2 Sat by Pulse Oximetry (%) 97 07/08/19 08:55 Eyes: Yes: PERRL HENT: Yes: Atraumatic Neck: Yes: Supple Cardiovascular: Yes: Pulse Irregular, S1, S2 Respiratory: Yes: Diminished Gastrointestinal: Yes: Normal Bowel Sounds, Soft. No: Tenderness Edema: No Additional Findings/Remarks: - Review of Systems Constitutional: denies: Chills, Fever Cardiovascular: denies: Chest Pain, Palpitations, Shortness of Breath Respiratory: denies: Cough, Hemoptysis, Orthopnea, PND, SOB, SOB on Exertion Gastrointestinal: denies: Abdominal Pain, Constipation, Diarrhea, Melena, Nausea , Rectal Bleeding, Vomiting Genitourinary: denies: Dysuria, Hematuria Musculoskeletal: denies: Back Pain Neurological: denies: Dizziness, Headache, Seizure, Syncope Labs: CBC, BMP 07/08/19 05:40 07/08/19 05:40 INR, PTT INR 1.84 (0.83-1.09) H 09/06/19 04:55 Problem List - Problems (1) Acute exacerbation of CHF (congestive heart failure) Code(s): I50.9 - HEART FAILURE, UNSPECIFIED (3) Atypical chest pain Code(s): R07.89 - OTHER CHEST PAIN (4) Diastolic heart failure Code(s): I50.30 - UNSPECIFIED DIASTOLIC (CONGESTIVE) HEART FAILURE Qualifiers: Heart failure chronicity: chronic heart failure (5) Elevated liver enzymes Code(s): R74.8 - ABNORMAL LEVELS OF OTHER SERUM ENZYMES (7) Leukocytosis Code(s): D72.829 - ELEVATED WHITE BLOOD CELL COUNT, UNSPECIFIED (8) Moderate to severe pulmonary hypertension Code(s): I27.20 - PULMONARY HYPERTENSION, UNSPECIFIED Assessment/Plan 1. Post mechanical fall ? Syncope 2. Permanent AF on DOAC/Pradaxa 3. Atypical chest pain with moderate to severe pulmonary HTN 4. HTN PLAN: 1. Continue present medical therapy including Pradaxa, Carvedilol and Digoxin with caution 2. Further work up can be done as outpatient 3. Possible SNF Further plans are to follow Eloy Albarran MD
[2019-07-08] MEDS ORDERED: DIGOXIN 0.125 MG TABLET (FP) PO ONE (14:06)
--- NOTE | 2019-07-08 15:43 | PN ---
Progress Note (short form) - Note Progress Note: states feel much better today. slightly sore all over. denies Cp, SOB, fever, chills, N/V/C/D Current Medications Generic Name Dose Route Start Last Admin Trade Name Freq PRN Reason Stop Dose Admin Acetaminophen 650 mg 07/07/19 11:20 07/07/19 19:44 Tylenol - PO 650 mg Q4H PRN Administration PAIN OR FEVER Carvedilol 3.125 mg 07/07/19 22:00 07/08/19 09:41 Coreg - PO 3.125 mg BID [facility] Administration Dabigatran 150 mg 07/07/19 22:00 07/08/19 09:44 Pradaxa - PO 150 mg BID [facility] Administration Digoxin 0.125 mg 07/07/19 14:15 07/08/19 09:40 Lanoxin - PO 0.125 mg DAILY [facility] Administration Tiotropium [place] 2 puff 07/08/19 10:00 07/08/19 09:41 Spiriva Respimat IH 2 puff DAILY [facility] Administration Last Vital Signs Temp Pulse Resp BP Pulse Ox 98.1 F 74 20 102/55 L 97 07/08/19 14:16 07/08/19 15:09 07/08/19 14:16 07/08/19 14:16 07/08/19 08:55 Intake & Output 07/05/19 07/06/19 07/07/19 07/08/19 23:59 23:59 23:59 23:59 Intake Total 724 Balance 724 Weight 99 lb 13.91 oz General NAD, bitemporal wasting, prominent clavicles CV S1 S2 tachy + L sided chest pain Lungs CTA B/l no wheezing/rales/rhonchi Abdomen soft NT/ND neg garcia sign Extremities good ROM of B/L shoulders. no point tenderness CBCD WBC 9.4 K/mm3 (4.0-10.0) 07/08/19 05:40 RBC 3.37 M/mm3 (3.60-5.2) L 07/08/19 05:40 Hgb 11.2 GM/dL (10.7-15.3) 07/08/19 05:40 Hct 33.5 % (32.4-45.2) 07/08/19 05:40 MCV 99.4 fl (80-96) H 07/08/19 05:40 MCHC 33.4 g/dl (32.0-36.0) 07/08/19 05:40 RDW 12.8 % (11.6-15.6) 07/08/19 05:40 Plt Count 311 K/MM3 (134-434) 07/08/19 05:40 MPV 7.8 fl (7.5-11.1) 07/08/19 05:40 CMP Sodium 135 mmol/L (136-145) L 07/08/19 05:40 Potassium 4.9 mmol/L (3.5-5.1) 07/08/19 05:40 Chloride 103 mmol/L (98-107) 07/08/19 05:40 Carbon Dioxide 24 mmol/L (21-32) 07/08/19 05:40 Anion Gap 8 MMOL/L (8-16) 07/08/19 05:40 BUN 25.7 mg/dL (7-18) H 07/08/19 05:40 Creatinine 0.8 mg/dL (0.55-1.3) 07/08/19 05:40 Calcium 8.4 mg/dL (8.5-10.1) L 07/08/19 05:40 Total Bilirubin 0.5 mg/dL (0.2-1) 07/08/19 05:40 AST 27 U/L (15-37) 07/08/19 05:40 ALT 19 U/L (13-61) 07/08/19 05:40 Alkaline Phosphatase 127 U/L (45-117) H 07/08/19 05:40 Total Protein 5.8 g/dl (6.4-8.2) L 07/08/19 05:40 Albumin 2.4 g/dl (3.4-5.0) L 07/08/19 05:40 ASSESSMENT AND PLAN: 84 y/o F with PMHx of AFib (on NOAC), Chronic bronchitis (?COPD, not on home O2) , HTN, Chronic UTI's, Diverticulitis, Colitis, Cataracts, Anxiety, Insomnia presents after a mechanical fall, with 3 week hx of chest pain. 1. CP- has been ongoing for 3 weeks and appears to be muscular at this time. trop neg x2. echo done. last stress test was 2 years ago per patient. cardio consulted. no further workup a tthis time. 2. s/p mechanical fall-imaging all negative. seen by PT and recommends SYBIL which patient is agreeable. 3. elevated alk phos- no abdominal pain. u/s negative. trending down. can f/u as outpatient. 4. hyperkalemia- no peaked t waves. resolved 5. leukocytosis- liekly stress related. no signs of infection. hold abx. resolved 6. malnutrition- evident by body habitus and reports of weight loss. can not specify how much weights. states she has good appetite. claims completed routine cancer screening. will order ensures. encourage po intake 7. afib on pradaxa-rate controlled. cont home medications 8. HTN- controlled. cont home meds 9. DVT ppx- pradaxa 10. spoke in detail about rehab. pt is agreeable. will d/c monitor tech. spoke with CM, will send out DENISSE Visit type - Emergency Visit Emergency Visit: Yes ED Registration Date: 07/07/19 Care time: The patient presented to the Emergency Department on the above date and was hospitalized for further evaluation of their emergent condition. - New Patient This patient is new to me today: No - Critical Care Critical Care patient: No - Discharge Referral Referred to [facility] No
[2019-07-08] MEDS ORDERED: DOCUSATE SODIUM 100 MG CAPSULE (FP) PO ONE (18:45)
[2019-07-08] MEDS ORDERED: POLYETHYLENE GLYCOL 3350 119 GM BTL PO ONE (18:45)
[2019-07-08] MEDS: ACETAMINOPHEN 325 MG TABLET (FP) PO PRN (21:02)
--- NOTE | 2019-07-09 09:29 | PN ---
Progress Note, Physician Chief Complaint: Events noted Coverage for Dr. Jules and Dr. Campos Not in distress, but with variable heart rate in AF History of Present Illness: Patient was seen and examined. Awake and alert. Chart was reviewed Denies chest pain or SOB - Current Medication List Current Medications: Active Medications Acetaminophen (Tylenol -) 650 mg PO Q4H PRN PRN Reason: PAIN OR FEVER Last Admin: 07/08/19 21:02 Dose: 650 mg Carvedilol (Coreg -) 3.125 mg PO BID [facility] Last Admin: 07/08/19 21:02 Dose: 3.125 mg Dabigatran (Pradaxa -) 150 mg PO BID [facility] Last Admin: 07/08/19 21:02 Dose: 150 mg Digoxin (Lanoxin -) 0.125 mg PO DAILY [facility] Last Admin: 07/08/19 09:40 Dose: 0.125 mg Tiotropium [place] (Spiriva Respimat) 2 puff IH DAILY [facility] Last Admin: 07/08/19 09:41 Dose: 2 puff - Objective Vital Signs: Vital Signs Temperature 97.5 F L 07/09/19 06:00 Pulse Rate 88 07/09/19 08:28 Respiratory Rate 24 H 07/09/19 08:28 Blood Pressure 126/87 07/09/19 08:28 O2 Sat by Pulse Oximetry (%) 97 07/08/19 21:00 Eyes: Yes: PERRL HENT: Yes: Atraumatic Neck: Yes: Supple Cardiovascular: Yes: Pulse Irregular, S1, S2 Respiratory: Yes: CTA Bilaterally Gastrointestinal: Yes: Normal Bowel Sounds, Soft. No: Tenderness Edema: No Additional Findings/Remarks: - Review of Systems Constitutional: denies: Chills, Fever Cardiovascular: denies: Chest Pain, Palpitations, Shortness of Breath Respiratory: denies: Cough, Hemoptysis, Orthopnea, PND, SOB, SOB on Exertion Gastrointestinal: denies: Abdominal Pain, Constipation, Diarrhea, Melena, Nausea , Rectal Bleeding, Vomiting Genitourinary: denies: Dysuria, Hematuria Musculoskeletal: denies: Back Pain Neurological: denies: Dizziness, Headache, Seizure, Syncope Labs: CBC, BMP 07/08/19 05:40 07/08/19 05:40 INR, PTT INR 1.84 (0.83-1.09) H 07/07/19 04:55 Problem List - Problems (1) Acute exacerbation of CHF (congestive heart failure) Code(s): I50.9 - HEART FAILURE, UNSPECIFIED (3) Atypical chest pain Code(s): R07.89 - OTHER CHEST PAIN (4) Diastolic heart failure Code(s): I50.30 - UNSPECIFIED DIASTOLIC (CONGESTIVE) HEART FAILURE Qualifiers: Heart failure chronicity: chronic heart failure (5) Elevated liver enzymes Code(s): R74.8 - ABNORMAL LEVELS OF OTHER SERUM ENZYMES (7) Leukocytosis Code(s): D72.829 - ELEVATED WHITE BLOOD CELL COUNT, UNSPECIFIED (8) Moderate to severe pulmonary hypertension Code(s): I27.20 - PULMONARY HYPERTENSION, UNSPECIFIED Assessment/Plan 1. Post mechanical fall ? Syncope 2. Permanent AF on DOAC/Pradaxa 3. Atypical chest pain with moderate to severe pulmonary HTN 4. HTN PLAN: 1. Continue present medical therapy including Pradaxa, Carvedilol and Digoxin with caution 2. Further work up can be done as outpatient with Dr. Egan 3. Possible SNF prior to being discharged home Further plans are to follow Eloy Albarran MD
[2019-07-09] MEDS ORDERED: FAMOTIDINE 20 MG/50 ML IVPB 20 MG/50 ML MG IVPB SCH ×2 (10:15→10:45)
[2019-07-09] MEDS: DIGOXIN 0.125 MG TABLET (FP) PO SCH (10:33)
[2019-07-09] MEDS: CARVEDILOL 3.125 MG TABLET (FP) PO SCH ×2 (10:33→21:04)
[2019-07-09] MEDS: POLYETHYLENE GLYCOL 3350 119 GM BTL PO SCH (10:34)
[2019-07-09] MEDS: DABIGATRAN ETEXILATE MESYLATE 150 MG CAPSULE PO SCH ×2 (11:33→21:04)
[2019-07-09] MEDS: TIOTROPIUM BROMIDE 2.5 MCG (SPIRIVA) RESPIMAT INHALER IH SCH (11:34)
--- NOTE | 2019-07-09 11:48 | PN ---
Teaching Attending Note Name of Resident: Kayden Avendano ATTENDING PHYSICIAN STATEMENT I saw and evaluated the patient. I reviewed the resident's note and discussed the case with the resident. I agree with the resident's findings and plan as documented. SUBJECTIVE:has small BM yesterday. denies CP, SOB, fever, chills, N/V/C/D OBJECTIVE: Last Vital Signs Temp Pulse Resp BP Pulse Ox 97.5 F L 88 24 H 126/87 97 07/09/19 06:00 07/09/19 10:33 07/09/19 08:28 07/09/19 08:28 07/08/19 21:00 General NAD ASSESSMENT AND PLAN: 84 y/o F with PMHx of AFib (on NOAC), Chronic bronchitis (?COPD, not on home O2) , HTN, Chronic UTI's, Diverticulitis, Colitis, Cataracts, Anxiety, Insomnia presents after a mechanical fall, with 3 week hx of chest pain. 1. CP- has been ongoing for 3 weeks and appears to be muscular at this time. trop neg x2. echo done. last stress test was 2 years ago per patient. cardio consulted. no further workup a this time. 2. constipation- stool softeners started with some response. cont for now. will add pepcid . monitor for BM 3. s/p mechanical fall-imaging all negative. seen by PT and recommends SYBIL which patient is agreeable. 4. elevated alk phos- no abdominal pain. u/s negative. trending down. can f/u as outpatient. 5. hyperkalemia- no peaked t waves. resolved 6. leukocytosis- liekly stress related. no signs of infection. hold abx. resolved 7. malnutrition- evident by body habitus and reports of weight loss. can not specify how much weights. states she has good appetite. claims completed routine cancer screening. will order ensures. encourage po intake 8. afib on pradaxa-rate controlled. cont home medications 9. HTN- controlled. cont home meds 10. DVT ppx- pradaxa 11.medically optimized for discharge at this time. awaiting SYBIL placement. d/c tele
--- NOTE | 2019-07-09 12:40 | PN ---
Physical Exam: SUBJECTIVE: 84 y/o female with PMH of A. fib on pradaxa, chronic bronchitis (? COPD, not on home O2), HTN, recurrent UTI's, diverticulitis, colitis, cataracts , anxiety, and insomnia whom presented s/p mechanical fall with 3 week h/o chest and right shoulder pain. Pt seen sitting at chair next to bed having breakfast. She offers no complaints this morning as was eager to demonstrate her progress/ ROM of RUE. Pt denies pain, BUTLER, and NVFD. OBJECTIVE: Vital Signs Period Temp Pulse Resp BP Sys/Brewer Pulse Ox Last 24 Hr 97.5 F-98.1 F 74-88 16-29 102-126/49-87 95-97 GENERAL: AOx3, in no acute distress. Thin body habitus. Hard of hearing. HEAD: NCAT EYES: ZOE, EOMI, conjunctiva clear. ENT: Ears normal, nares patent, oropharynx clear without exudates. Moist mucous membranes. NECK: Normal range of motion, supple without lymphadenopathy, JVD, or masses. LUNGS: CTAB. No wheezes, and no crackles. No accessory muscle use. HEART: RRR s1 s2 ABDOMEN: Soft, BS present in all 4 quadrants, non-distended, no JVD, MUSCULOSKELETAL: No bony deformities or tenderness. No CVA tenderness. UPPER EXTREMITIES: 2+ pulses, warm, well-perfused. No cyanosis. No clubbing. No peripheral edema. LOWER EXTREMITIES: 2+ pulses, warm, well-perfused. No calf tenderness. No peripheral edema. NEUROLOGICAL: Cranial nerves II-XII intact. Normal speech. Gait not appreciated. PSYCHIATRIC: Cooperative. Good eye contact. Appropriate mood and affect. SKIN: 3x4 cm echymosis on RIGHT UE. Warm, dry, normal turgor, no rashes or lesions noted, normal capillary refill. Laboratory Results - last 24 hr 07/08/19 07/08/19 05:43 05:43 Hep A IgM Ab Confirm Negative Hep Bs Antigen Negative Hep B Core IgM Ab Negative Negative Hepatitis C Ab (EIA) 0.3 Active Medications Acetaminophen (Tylenol -) 650 mg PO Q4H PRN PRN Reason: PAIN OR FEVER Last Admin: 07/08/19 21:02 Dose: 650 mg Carvedilol (Coreg -) 3.125 mg PO BID [facility] Last Admin: 07/09/19 10:33 Dose: 3.125 mg Dabigatran (Pradaxa -) 150 mg PO BID [facility] Last Admin: 07/09/19 11:33 Dose: 150 mg Digoxin (Lanoxin -) 0.125 mg PO DAILY [facility] Last Admin: 07/09/19 10:33 Dose: 0.125 mg Docusate Sodium (Colace -) 300 mg PO [facility] Famotidine/Sodium Chloride (Pepcid 20 Mg Premixed Ivpb -) 20 mg in 50 mls @ 100 mls/hr IVPB Q2D@1000 [facility] Last Admin: 07/09/19 11:40 Dose: 100 mls/hr Polyethylene Glycol (Miralax (For Daily Use) -) 17 gm PO DAILY [facility] Last Admin: 07/09/19 10:34 Dose: 17 grams Tiotropium [place] (Spiriva Respimat) 2 puff IH DAILY [facility] Last Admin: 07/09/19 11:34 Dose: 2 puff ASSESSMENT/PLAN: 84 y/o female with PMH of A. fib on pradaxa, chronic bronchitis (?COPD, not on home O2), HTN, recurrent UTI's, diverticulitis, colitis, cataracts, anxiety, and insomnia whom presented s/p mechanical fall with 3 week h/o chest and right shoulder pain. # Chest pain - 3 week duration - Exacerbated by fall - Trop NEG x2 - Echo done - Last stress test was 2 years ago per patient - Cardio consulted - Cont. home regimen with caution # Constipation - Stool softeners provided. 1 BM this AM - Cont. to monitorr BM # S/p mechanical fall - Imaging all NEG - PT: Recommends SYBIL & patient is agreeable # Elevated alk phos. - NO abdominal pain - U/s negative - Trending down - F/u as outpatient # Hyperkalemia, resolved - NO peaked t waves # Leukocytosis, resolved - Most likely 2/2 stress - NO signs of infection - Hold abx # Malnutrition - Reports of weight loss, though not recorded - Pt has good appetite claims that hse completed routine cancer screening - Encourage PO intake and provide Ensures # A. fib - Cont. home regimen: pradaxa - Rate controlled # HTN - Cont. home regimen # DVT prophylaxis - Pradaxa # Disposition - Stable, d/c tele - Awaiting SYBIL placement Kayden Avendano MD Visit type - Emergency Visit Emergency Visit: No - New Patient This patient is new to me today: Yes Date on this admission: 07/09/19 - Critical Care Critical Care patient: No - Discharge Referral Referred to [facility] Med P.C.: No ATTENDING PHYSICIAN STATEMENT I saw and evaluated the patient. I reviewed the resident's note and discussed the case with the resident. I agree with the resident's findings and plan as documented. SUBJECTIVE: OBJECTIVE: ASSESSMENT AND PLAN:
[2019-07-09] MEDS: ACETAMINOPHEN 325 MG TABLET (FP) PO PRN (21:21)
[2019-07-09] MEDS ORDERED: DOCUSATE SODIUM 100 MG CAPSULE (FP) PO SCH (22:00)
[2019-07-10 06:33] LABS: BASO % 0.4 % (0-2.0); EOS % 1.6 % (0-4.5); LYMPH % 8.5 % (8-40); MCH 33.4 pg (25.7-33.7); MCHC 33.3 g/dl (32.0-36.0); MEAN CELL VOLUME 100.3 fl (80-96); MEAN PLT VOLUME 7.8 fl (7.5-11.1); MONO % 9.9 % (3.8-10.2); NEUT % 79.6 % (42.8-82.8); PLATELET COUNT 362 K/MM3 (134-434); RBC 3.59 M/mm3 (3.60-5.2); RDW 12.8 % (11.6-15.6); WHITE BLOOD COUNT 8.4 K/mm3 (4.0-10.0)
[2019-07-10 07:16] LABS: ALBUMIN 2.6 g/dl (3.4-5.0); BILIRUBIN,TOTAL 0.4 mg/dL (0.2-1); BLOOD UREA NITROGEN 14.3 mg/dL (7-18); CALCIUM 8.7 mg/dL (8.5-10.1); CREATININE 0.8 mg/dL (0.55-1.3); MAGNESIUM 2.2 mg/dL (1.8-2.4); PHOSPHOROUS 3.2 mg/dL (2.5-4.9); POTASSIUM 4.3 mmol/L (3.5-5.1); TOT PROT 6.5 g/dl (6.4-8.2)
--- NOTE | 2019-07-10 07:47 | PN ---
Progress Note, Physician History of Present Illness: 84F pmh COPD, AFib, HTN, moderate-severe pulmonary HTN, recent weight loss ( poor appetite; abdominal discomfort/nausea),anxiety, now came to hospital after a fall early this morning. Pt says she walked into her bedroom while it was dark, did not turn on the light , and fell into a hamper of clothes; it took her 1/2 hour to get herself up.Unclear if mechanical or syncopal; denies prodrome, dizziness, sob. Endorses new substernal, L sided, squeezing and sharp chest pain, radiating to neck and shoulder (the pain is reproduced by palpation of the left anterior chest wall). States she has been falling frequently over the past several weeks. Pt walks in her home; denies chest pain or dyspnea on exertion. - Current Medication List Current Medications: Active Medications Acetaminophen (Tylenol -) 650 mg PO Q4H PRN PRN Reason: PAIN OR FEVER Last Admin: 07/09/19 21:21 Dose: 650 mg Carvedilol (Coreg -) 3.125 mg PO BID [facility] Last Admin: 07/09/19 21:04 Dose: 3.125 mg Dabigatran (Pradaxa -) 150 mg PO BID [facility] Last Admin: 07/09/19 21:04 Dose: 150 mg Digoxin (Lanoxin -) 0.125 mg PO DAILY [facility] Last Admin: 07/09/19 10:33 Dose: 0.125 mg Docusate Sodium (Colace -) 300 mg PO HS [facility] Last Admin: 07/09/19 21:04 Dose: 300 mg Famotidine/Sodium Chloride (Pepcid 20 Mg Premixed Ivpb -) 20 mg in 50 mls @ 100 mls/hr IVPB Q2D@1000 [facility] Last Admin: 07/09/19 11:40 Dose: 100 mls/hr Polyethylene Glycol (Miralax (For Daily Use) -) 17 gm PO DAILY [facility] Last Admin: 07/09/19 10:34 Dose: 17 grams Tiotropium [place] (Spiriva Respimat) 2 puff IH DAILY [facility] Last Admin: 07/09/19 11:34 Dose: 2 puff - Objective Vital Signs: Vital Signs Temperature 97.7 F 07/10/19 06:00 Pulse Rate 79 07/10/19 06:00 Respiratory Rate 16 07/10/19 06:00 Blood Pressure 107/46 L 07/10/19 06:00 O2 Sat by Pulse Oximetry (%) 96 07/09/19 21:00 Eyes: Yes: WNL, Conjunctiva Clear, EOM Intact HENT: Yes: WNL, Atraumatic, Normocephalic Neck: Yes: WNL, Supple, Trachea Midline Cardiovascular: Yes: WNL, Regular Rate and Rhythm Respiratory: Yes: WNL, Regular, CTA Bilaterally Gastrointestinal: Yes: WNL, Normal Bowel Sounds Genitourinary: Yes: WNL Musculoskeletal: Yes: WNL Extremities: Yes: WNL Edema: No Integumentary: Yes: WNL Neurological: Yes: WNL, Alert, Oriented ...Motor Strength: WNL Psychiatric: Yes: WNL Labs: CBC, BMP 07/10/19 05:00 07/10/19 05:00 INR, PTT INR 1.84 (0.83-1.09) H 07/07/19 04:55 Problem List - Problems (1) Chest pain Code(s): R07.9 - CHEST PAIN, UNSPECIFIED Qualifiers: Chest pain type: unspecified Qualified Code(s): R07.9 - Chest pain, unspecified (2) Frequent falls Code(s): R29.6 - REPEATED FALLS (3) Leukocytosis Code(s): D72.829 - ELEVATED WHITE BLOOD CELL COUNT, UNSPECIFIED (4) Moderate to severe pulmonary hypertension Code(s): I27.20 - PULMONARY HYPERTENSION, UNSPECIFIED (5) Acute exacerbation of CHF (congestive heart failure) Code(s): I50.9 - HEART FAILURE, UNSPECIFIED (7) Atypical chest pain Code(s): R07.89 - OTHER CHEST PAIN (8) Breast cancer Code(s): C50.919 - MALIGNANT NEOPLASM OF UNSP SITE OF UNSPECIFIED FEMALE BREAST (9) Chest pain at rest Code(s): R07.9 - CHEST PAIN, UNSPECIFIED (10) Diastolic heart failure Code(s): I50.30 - UNSPECIFIED DIASTOLIC (CONGESTIVE) HEART FAILURE Qualifiers: Heart failure chronicity: chronic heart failure (11) Elevated liver enzymes Code(s): R74.8 - ABNORMAL LEVELS OF OTHER SERUM ENZYMES (12) Frequent loose stools Code(s): R19.7 - DIARRHEA, UNSPECIFIED Assessment/Plan 1. Post mechanical fall ? Syncope 2. Permanent AF on DOAC/Pradaxa 3. Atypical chest pain with moderate to severe pulmonary HTN 4. HTN PLAN: 1. Continue present medical therapy including Pradaxa, Carvedilol and Digoxin with caution 2. Further work up can be done as outpatient with Dr. Egan 3. Possible SNF prior to being discharged home cc time spenrt 37 min
[2019-07-10] MEDS: ACETAMINOPHEN 325 MG TABLET (FP) PO PRN (08:27)
[2019-07-10] MEDS ORDERED: PT OWN MED DRAWER 7, Y5N ONE (09:04)
[2019-07-10] MEDS: DIGOXIN 0.125 MG TABLET (FP) PO SCH ×2 (09:05→10:44)
[2019-07-10] MEDS: CARVEDILOL 3.125 MG TABLET (FP) PO SCH (09:05)
[2019-07-10] MEDS: DABIGATRAN ETEXILATE MESYLATE 150 MG CAPSULE PO SCH (09:07)
[2019-07-10] MEDS: TIOTROPIUM BROMIDE 2.5 MCG (SPIRIVA) RESPIMAT INHALER IH SCH (09:07)
[2019-07-10] MEDS: POLYETHYLENE GLYCOL 3350 119 GM BTL PO SCH ×2 (09:07→18:51)
--- NOTE | 2019-07-10 11:57 | PN ---
Teaching Attending Note Name of Resident: Kayden Avendano ATTENDING PHYSICIAN STATEMENT I saw and evaluated the patient. I reviewed the resident's note and discussed the case with the resident. I agree with the resident's findings and plan as documented. SUBJECTIVE:overall improved but still no BM with stool softeners. denies CP, SOB , fever, chills, N/V/ OBJECTIVE: Last Vital Signs Temp Pulse Resp BP Pulse Ox 97.7 F 84 18 106/59 L 97 07/10/19 06:00 07/10/19 10:00 07/10/19 10:00 07/10/19 10:00 07/10/19 09:00 General NAD CV S1 s2 irregular Lungs CTA B/L no wheezing/rales/rhonchi Abdomen soft NT/ND ASSESSMENT AND PLAN: 84 y/o F with PMHx of AFib (on NOAC), Chronic bronchitis (?COPD, not on home O2) , HTN, Chronic UTI's, Diverticulitis, Colitis, Cataracts, Anxiety, Insomnia presents after a mechanical fall, with 3 week hx of chest pain. 1. CP- has been ongoing for 3 weeks and appears to be muscular at this time. trop neg x2. echo done. last stress test was 2 years ago per patient. cardio consulted. no further workup a this time. 2. constipation- offered enema which was refused. cont stool softeners. 3. s/p mechanical fall-imaging all negative. seen by PT and recommends SYBIL which patient is agreeable. 4. elevated alk phos- no abdominal pain. u/s negative. trending down. can f/u as outpatient. 5. hyperkalemia- no peaked t waves. resolved 6. leukocytosis- liekly stress related. no signs of infection. hold abx. resolved 7. malnutrition- evident by body habitus and reports of weight loss. can not specify how much weights. states she has good appetite. claims completed routine cancer screening. will order ensures. encourage po intake 8. afib on pradaxa-rate controlled. cont home medications 9. HTN- controlled. cont home meds 10. DVT ppx- pradaxa 11.medically optimized for discharge at this time. awaiting SYBIL placement. d/c tele
[2019-07-10 13:26] VITALS: BMI 17.5
[2019-07-10 14:37] VITALS: TEMP 97.5
--- NOTE | 2019-07-10 15:54 | DS ---
Physical Exam: SUBJECTIVE: 84 y/o female with PMH of A. fib on pradaxa, chronic bronchitis ( COPD, not on home O2), HTN, recurrent UTI's, diverticulitis, colitis, cataracts , anxiety, and insomnia whom presented s/p mechanical fall with 3 week h/o chest and right shoulder pain. Pt seen sitting in bed, having breakfast. She offers no complaints this morning. Pt denies pain, BUTLER, and NVFD. OBJECTIVE: Vital Signs Period Temp Pulse Resp BP Sys/Brewer Pulse Ox Last 24 Hr 97.5 F-97.7 F 78-90 16-23 94-122/46-67 96-97 PHYSICAL EXAM GENERAL: AOx3, in no acute distress. Thin body habitus. Hard of hearing. HEAD: NCAT EYES: ZOE, EOMI, conjunctiva clear. ENT: Ears normal, nares patent, oropharynx clear without exudates. Moist mucous membranes. NECK: Normal range of motion, supple without lymphadenopathy, JVD, or masses. LUNGS: CTAB. No wheezes, and no crackles. No accessory muscle use. HEART: RRR s1 s2 ABDOMEN: Soft, BS present in all 4 quadrants, non-distended, no JVD, MUSCULOSKELETAL: No bony deformities or tenderness. No CVA tenderness. UPPER EXTREMITIES: RIGHT sided healing/old bruises. 2+ pulses, warm, well- perfused. No cyanosis. No clubbing. No peripheral edema. LOWER EXTREMITIES: 2+ pulses, warm, well-perfused. No calf tenderness. No peripheral edema. NEUROLOGICAL: Cranial nerves II-XII intact. Normal speech. Gait not appreciated. PSYCHIATRIC: Cooperative. Good eye contact. Appropriate mood and affect. SKIN: 3x4 cm echymosis on RIGHT UE. Warm, dry, normal turgor, no rashes or lesions noted, normal capillary refill. LABS Laboratory Results - last 24 hr 07/10/19 07/10/19 05:00 05:00 WBC 8.4 RBC 3.59 L Hgb 12.0 Hct 36.0 MCV 100.3 H MCH 33.4 MCHC 33.3 RDW 12.8 Plt Count 362 MPV 7.8 Absolute Neuts (auto) 6.7 Neutrophils % 79.6 Lymphocytes % 8.5 Monocytes % 9.9 Eosinophils % 1.6 D Basophils % 0.4 Nucleated RBC % 0 Sodium 137 Potassium 4.3 Chloride 102 Carbon Dioxide 28 Anion Gap 7 L BUN 14.3 Creatinine 0.8 Est GFR (CKD-EPI)AfAm 77.37 Est GFR (CKD-EPI)NonAf 66.76 Random Glucose 101 Calcium 8.7 Phosphorus 3.2 Magnesium 2.2 Total Bilirubin 0.4 AST 19 ALT 15 Alkaline Phosphatase 117 Total Protein 6.5 Albumin 2.6 L HOSPITAL COURSE: Date of Admission:07/08/19 84 y/o female with PMH of A. fib on pradaxa, chronic bronchitis (COPD, not on home O2), HTN, recurrent UTI's, diverticulitis, colitis, cataracts, anxiety, and insomnia whom presented s/p mechanical fall with 3 week h/o chest and right shoulder pain. On admission, pt reports CP was ongoing for 3 weeks and was acutely worsened by fall at home. Imaging all negative. Presentation appeared to be musculoskeletal as trop neg x2. Echo was done during stay. Her last stress test was 2 years ago. Cardiology was consulted and recommended no further workup a this time. The pt experienced constipation and was given stool softeners that provided some relief. She was offered an enema but refused. Alk phos was found to be elevated but there were no c/o abdominal pain. U/s negative. During stay alk phos trended down. Pt can f/u this finding as an outpatient. Pt demonstrated hyperkalemia but cardiac monitoring showed no peaked t waves. A leukocytosis was found, which was likely stress related. There were no signs of infection. Antibiotics were not given for this leukocytosis. Pt's body habitus was suggestive of malnutrition. The pt reports non-recorded weight loss, despite a good appetite. Pt reports that she completed routine cancer screening. Ensure drinks were provided. The pt was encouraged to increase po intake. Chronic consitions and home regiments were followed. A. fib treatment of pradaxa was continued and rate was controlled. Home HTN meds were continued and BP was controlled during stay. Pt seen by PT and recommends SYBIL, which patient is agreeable. She is medically optimized for discharge and may proceed to SYBIL. Date of Discharge: 07/10/19 Kayden Avendano MD Discharge Summary Reason For Visit: RECURRENT FALLS CHEST PAIN Current Active Problems Chest pain (Acute) Frequent falls (Acute) Leukocytosis (Acute) Moderate to severe pulmonary hypertension (Acute) Condition: Stable - Instructions Diet, Activity, Other Instructions: YOUR VISIT You were admitted to the hospital after a fall. Your imaging results were negative for fracture. You endorsed chest pain that was evaluated by the cementer machine applicator, and deemed likely muscular. You are being discharged to rehab facility so that you may get stronger before you go home. MEDICATIONS Continue taking your home medications as directed. Your Digoxin level has been increased to 0.25mg daily. ADDITIONAL CARE Follow up with your primary care physician, Dr. Haines, within 1 week of hospital discharge. Follow up with your cementer machine applicator, Dr. Egan, within one week of discharge. A referral has been provided. Please have your labs drawn to follow up on your elevated alkaline phosphatase. You will need a repeat Digoxin level at your follow up appointment, to ensure the correct Digoxin dosage. Discuss this further at your appointment. ADDITIONAL INFORMATION Return to the nearest Emergency Department if you experience worsening symptoms , subjective fevers, chills, shortness of breath, chest pain, palpitations, abdominal pain, nausea, vomiting, fall, loss of consciousness. Referrals: Fercho Haines MD [Primary Care Provider] - Hernan Egan MD [Staff Physician] - Disposition: CUSTODIAL FACILITY - Home Medications Comprehensive Discharge Medication List: Ambulatory Orders Carvedilol [Coreg -] 3.125 mg PO BID 07/07/19 Dabigatran Etexilate Mesylate [Pradaxa -] 150 mg PO BID 07/07/19 Fluticasone Prop 0.05% Nasal [Flonase -] 1 - 2 spray NS DAILY PRN 07/07/19 Umeclidinium [place] [Incruse Ellipta] 62.5 mcg IH DAILY 07/07/19 Digoxin [Lanoxin -] 0.25 mg PO DAILY 30 Days #30 tablet 07/10/19 - Discharge Referral Referred to [facility] Med P.C.: No ATTENDING PHYSICIAN STATEMENT I saw and evaluated the patient. I reviewed the resident's note and discussed the case with the resident. I agree with the resident's findings and plan as documented. SUBJECTIVE: OBJECTIVE: ASSESSMENT AND PLAN:
[2019-07-10 17:49] VITALS: BP 111/72; PULSE 92
[2019-07-10] MEDS ORDERED: guaiFENesin 200 MG/10 ML 10 ML UNIT-DOSE CUPS PO ONE (18:34)
== END 2019-07-10 19:43 | DRG 313 ==
LOC: JER 03:18 → JERBED 09:38 → J2W 15:57 → OBSVTOIN 07-08 15:40
PROVIDERS: ADMIT Internal Medicine; ATTEND Internal Medicine
DX: R07.89 Other chest pain (principal); E46 Unspecified protein-calorie malnutrition; Z68.1 Body mass index [BMI] 19.9 or less, adult; R63.4 Abnormal weight loss; J44.9 Chronic obstructive pulmonary disease, unspecified; I10 Essential (primary) hypertension; F41.9 Anxiety disorder, unspecified; Z87.440 Personal history of urinary (tract) infections; G47.00 Insomnia, unspecified; R29.6 Repeated falls; E87.5 Hyperkalemia; D72.829 Elevated white blood cell count, unspecified; I27.20 Pulmonary hypertension, unspecified; I48.2 Chronic atrial fibrillation; K59.00 Constipation, unspecified; R55 Syncope and collapse; W01.0XXA Fall on same level from slipping, tripping and stumbling without subsequent striking against object, initial encounter; Y93.89 Activity, other specified; Y92.89 Other specified places as the place of occurrence of the external cause; Y99.8 Other external cause status; Z87.891 Personal history of nicotine dependence
CPT/HCPCS: 36415; 70450-TC; 71045-TC-FY; 72125-TC; 73030-TC-RT-FY; 73560-TC-RT-FY; 76705-TC; 80053; 80061; 80074; 80162; 81003; 82550; 82977; 83721; 83735; 84100; 84484; 85025; 85610; 86705; 87086; 93005; 93010; 93306-TC; 97116-GP; 97161-GP; 99285-25; G0378; J0131

== ENCOUNTER 2019-10-30 16:04 | Inpatient (IN) | payer OTHER, MEDICARE ==
--- NOTE | 2019-10-30 16:42 | PDOC ---
History of Present Illness - General Chief Complaint: Shortness of Breath Stated Complaint: Shortness of Breath Time Seen by Provider: 10/30/19 16:16 - History of Present Illness Initial Comments: 11/04/19 23:35 84F PMH HTN, Pulm HTN, COPD (not on home O2), CHF, AF on pradaxa, and breast ca s/p lumpectomy sent by PCP for evaluation of dysphagia, shortness of breath, and decreased activity level. Pt states 1.5 month h/o dysphagia to solids but not liquids; states trouble swallowing pills. Progressive worsening over the past 1.5 months. Endorses occasional nausea but no vomiting, diarrhea, cramping , or abdominal pain. Endorses progressively worsening shortness of breath with occasionally productive cough and decreased activity tolerance. Denies f/c, sore throat, runny nose. Denies cp, urinary sx. Pt lives at home alone and was up until recently able to ambulate and carry out ADLs alone with occasional assist from aide (?comes as needed, but not 24h). Aide states she has become more reliant on assistance in the last few days. Pt had a recent fall 2 weeks ago w/o head strike or LOC, was able to pick herself up but did not go to hospital. Past History - Past Medical History Allergies/Adverse Reactions: Allergies Allergy/AdvReac Type Severity Reaction Status Date / Time meperidine HCl [From Demerol] AdvReac Intermediate Vomiting Verified 07/07/19 03 :29 lactose-intolerant AdvReac Uncoded 07/07/19 03:29 Home Medications: Ambulatory Orders Carvedilol [Coreg -] 3.125 mg PO BID 07/07/19 Dabigatran Etexilate Mesylate [Pradaxa -] 150 mg PO BID 07/07/19 Fluticasone Prop 0.05% Nasal [Flonase -] 1 - 2 spray NS DAILY PRN 07/07/19 Umeclidinium [place] [Incruse Ellipta] 62.5 mcg IH DAILY 07/07/19 Digoxin [Lanoxin -] 0.125 mg PO DAILY 30 Days #30 tablet 07/10/19 Furosemide 20 mg PO DAILY 10/30/19 Mirtazapine 15 mg PO DAILY 10/30/19 Anemia: No Asthma: No Cancer: Yes ((L) BREAST LUMPECTOMY) Cardiac Disorders: Yes (A.FIB) CVA: No COPD: No CHF: No Dementia: No Diabetes: No GI Disorders: Yes (COLITIS / DIVERTICULITIS) Disorders: (chronic UTI's) HTN: Yes Hypercholesterolemia: No Liver Disease: No Seizures: No Thyroid Disease: No - Surgical History Abdominal Surgery: Yes Appendectomy: Yes Cardiac Surgery: No Cholecystectomy: Yes Lung Surgery: No Neurologic Surgery: No Orthopedic Surgery: No - Immunization History Td Vaccination: Yes TDAP Vaccination: No Immunization Up to Date: Yes - Psycho Social/Smoking Cessation Hx Smoking History: Former smoker Have you smoked in the past 12 months: No If you are a former smoker, when did you quit?: 40 years ago Information on smoking cessation initiated: No Hx Alcohol Use: Yes (wine occassionally) Drug/Substance Use Hx: No Substance Use Type: Alcohol Hx Substance Use Treatment: No Review of Systems - Review of Systems Comments:: 11/04/19 23:35 CONSTITUTIONAL: Endorses weight loss, recent fall w/o LOC. Denies F / C HEENT: Denies headache, lightheadedness, dizziness, changes in vision / hearing , diplopia, blurry vision, sore throat, rhinorrhea RESP: Endorses progressive mild sob and occasional productive cough CARD: Denies chest pain GI: Endorses dysphagia to solids. Endorses occasional nausea. Denies V / D, abdominal pain : Denies dysuria SKIN: Denies rashes *Physical Exam - Vital Signs Last Vital Signs Temp Pulse Resp BP Pulse Ox 97.2 F L 88 22 H 126/63 98 10/30/19 16:18 10/30/19 16:18 10/30/19 16:18 10/30/19 16:18 10/30/19 16:18 - Physical Exam 11/04/19 23:35 GEN: AAOx3, cachetic HEENT: NC/AT, EOMI, PERRLA. No facial asymmetry. Normal voice. Supple neck w/ FROM w/o midline TTP. CV: S1/S2, RRR, no m/r/g LUNG: desaturates w/ speech. crackles at the bases otherwise clear w/o wheezes GI: +mild TTP suprapubically otherwise soft ndnt. +BS EXTREMITIES: No LE edema. No obvious deformities of all extremities. SKIN: warm, dry, normal turgor PSYCH: normal mood and affect NEURO: Moving all extremities ED Treatment Course - LABORATORY CBC & Chemistry Diagram: 11/04/19 05:25 11/04/19 05:25 Medical Decision Making - Medical Decision Making 10/30/19 16:47 84F sent in for failure to thrive, dysphagia, and discussion of living situation. Will eval for any acute / emergency abnormalities. Discussed concerns of decreasing ability to carry out ADLs with patient, grandchildren, and pt daughter via phone. They understand that the patient requires more assistance than she current has. Would like work up and evaluation of the progressive dysphagia. - CBC, CMP, Cardiac - CXR - EKG - CT head and neck - admit EKG HR 85 QRS 98 QTc 447 AFib 10/30/19 17:34 CXR read demonstrates progressive congestive changes w/ upper lobe infiltrates and some pleural fluid w/ atelectasis at right base and fluid in horizontal fissure when compared to prior CXR. will treat empirically for health care associated PNA 10/30/19 19:52 endorsed to hospitalist // ADMITTED Discharge - Discharge Information Problems reviewed: Yes Clinical Impression/Diagnosis: Requires assistance with activities of daily living (ADL), Healthcare- associated pneumonia Failure to thrive Qualifiers: Failure to thrive age range: in adult Qualified Code(s): R62.7 - Adult failure to thrive Dysphagia Qualifiers: Dysphagia type: unspecified Qualified Code(s): R13.10 - Dysphagia, unspecified Condition: Stable - Follow up/Referral - Patient Discharge Instructions - Post Discharge Activity
[2019-10-30 17:31] LABS: BASO % 0.2 % (0-2.0); EOS % 1.5 % (0-4.5); HEMATOCRIT 38.7 % (32.4-45.2); HEMOGLOBIN 12.7 GM/dL (10.7-15.3); LYMPH % 5.7 % (8-40); MCHC 32.9 g/dl (32.0-36.0); MEAN CELL VOLUME 100.4 fl (80-96); MEAN PLT VOLUME 7.6 fl (7.5-11.1); MONO % 9.5 % (3.8-10.2); NEUT % 83.1 % (42.8-82.8); PLATELET COUNT 331 K/MM3 (134-434); RBC 3.86 M/mm3 (3.60-5.2); RDW 17.2 % (11.6-15.6); WHITE BLOOD COUNT 10.8 K/mm3 (4.0-10.0)
[2019-10-30] MEDS ORDERED: VANCOMYCIN 1 GM in D5W (PRE-DOCKED) 1,000 MG/250 ML IVPB ONE (18:39)
[2019-10-30] MEDS ORDERED: PIPERACILLIN/TAZOB 3.375 GM 3.375 GM in DEXTROSE 5%-WATER - 50 ML IVPB ONE (18:39)
[2019-10-30 18:41] LABS: MAGNESIUM 1.9 mg/dL (1.8-2.4); PHOSPHOROUS 2.9 mg/dL (2.5-4.9)
[2019-10-30 19:08] LABS: ALK PHOS 89 U/L (45-117); ANION GAP 13 MMOL/L (8-16); BILIRUBIN,TOTAL 0.5 mg/dL (0.2-1); BLOOD UREA NITROGEN 22.5 mg/dL (7-18); CALCIUM 8.7 mg/dL (8.5-10.1); CHLORIDE 91 mmol/L (98-107); CO2 28 mmol/L (21-32); CREATININE 0.8 mg/dL (0.55-1.3); GLUCOSE,RANDOM 100 mg/dL (74-106); POTASSIUM 3.4 mmol/L (3.5-5.1); SGOT/AST 21 U/L (15-37); SGPT/ALT 8 U/L (13-61); SODIUM 131 mmol/L (136-145); TOT PROT 7.3 g/dl (6.4-8.2)
[2019-10-30] MEDS ORDERED: PIPERACILLIN/TAZOB 3.375 GM 3.375 GM/50 ML BAG IVPB ONE (19:12)
[2019-10-30] MEDS ORDERED: VANCOMYCIN 1 GRAM (PRE-DOCKED) 1,000 MG/250 ML BAG IVPB ONE (19:12)
[2019-10-30] MEDS ORDERED: SODIUM CHLORIDE 0.9% 500 ML INFUS.BAG IV ONE (19:19)
--- NOTE | 2019-10-30 19:45 | PN ---
Teaching Attending Note Name of Resident: Renetta Dowd ATTENDING PHYSICIAN STATEMENT I saw and evaluated the patient. I reviewed the resident's note and discussed the case with the resident. I agree with the resident's findings and plan as documented. SUBJECTIVE: Patient is an 84 year old woman with a PMH of HTN, Pulmonary HTN, COPD, CHF, Afib (on Pradaxa), Breast CA (s/p lumpectomy), Colitis, Diverticulitis, Chronic UTIs, Lung CA, and Insomnia, who presents to the ER with progressively worsening shortness of breath, weakness, and dysphagia. As per patient, over the past month and a half she has been experiencing increasing dysphagia with solids, nausea, shortness of breath, and productive cough. Aide at bedside notes that she has been requiring more assistance lately. Patient had a recent fall 2 weeks ago with out head strike or LOC, was able to pick herself up but did not go to hospital. Patient was advised by her PCP to report to the ER for further evaluation. She denies recent fevers, chills, headache, dizziness, vomiting, diarrhea, constipation, dysuria, frequency, urgency, hematuria, chest pain or palpitations. No recent travel or sick contacts. Denies alcohol, tobacco or illicit drug use. OBJECTIVE: Alert and cachectic Vital Signs Period Temp Pulse Resp BP Sys/Brewer Pulse Ox Last 24 Hr 97.2 F-98 F 88-91 18-22 115-126/63-77 98-100 HEENT: No Jaundice, eye redness or discharge, PERRLA, EOMI. Normocephalic, atraumatic. External ears are normal and hearing is grossly intact. No nasal discharge. Neck: Supple, nontender. No palpable adenopathy or thyromegaly. No JVD Chest: Good effort. Clear to auscultation and percussion. Heart: Regular. No S3, rub or murmur Abdomen: Not distended, soft, nontender and no HSM. No rebound or guarding. Normal bowel sounds. Ext: Peripheral pulses intact. No leg edema. Skin: Warm and dry. No petechiae, rash or ecchymosis. Neuro: Alert. Oriented x3. CN 2-12 grossly intact. Sensation grossly intact in all four extremities and DTR are symmetric. Psych: Appropriate mood and affect. Good insight. Home Medications Medication Instructions Recorded Carvedilol [Coreg -] 3.125 mg PO BID 07/07/19 Dabigatran Etexilate Mesylate 150 mg PO BID 07/07/19 [Pradaxa -] Fluticasone Prop 0.05% Nasal 1 - 2 spray NS DAILY PRN 07/07/19 [Flonase -] Umeclidinium [place] [Incruse 62.5 mcg IH DAILY 07/07/19 Ellipta] Digoxin [Lanoxin -] 0.125 mg PO DAILY 30 Days #30 07/10/19 tablet Furosemide 20 mg PO DAILY 10/30/19 Mirtazapine 15 mg PO DAILY 10/30/19 Abnormal Lab Results 10/30/19 10/30/19 17:20 17:20 WBC 10.8 H MCV 100.4 H RDW 17.2 H Absolute Neuts (auto) 9.0 H Neutrophils % 83.1 H Lymphocytes % 5.7 L D Sodium 131 L Potassium 3.4 L Chloride 91 L BUN 22.5 H ALT 8 L Albumin 3.0 L ASSESSMENT AND PLAN: 1. Pneumonia/Dysphagia - CXR shows cardiomegaly, congestive changes, upper lobe infiltrates, and right base atelectasis and pleural fluid. Chest CT done on (?to evaluate lung nodule) also showed similar findings as well as bibasilar and RML bronchiectasis. No evidence of acute intracranial pathology on head CT. C-spine CT does not reveal any acute pathology. Significant weight loss of about ?10 kg in less than 4 months - from 49.4 kg on 07/07/19 to 39.4 kg today. Concern is whether she has a malignancy or TB. Will send sputum for culture, do Quantiferon gold test, sputum for AFB, consult IR for diagnostic thoracentesis, consut ID and Pulmonary and treat with IV rocephin/azithromycin. Also has features of UTI. Urine C&S sent. Will get a barium swallow to evaluate dysphagia and consult GI. EKG shows Afib with a rate of 85, IRBBB and features of anterior ischemia - age undetermined. Will trend troponin and rule out ACS. Pradaxa 150 mg seems to be too high a dose for her - will discuss dose reduction to 75 mg bid with cardiology consult. Hypokalemia likely due to lasix therapy and poor intake. Will give IV and PO KCL. Hyponatremia likely due to poor solute intake, dehydration and ingestion of free water. Will restrict free water intake. Will continue comprehensive care for all of patients comorbid conditions including reduced dose of Pradaxa for Afib. 2. Hypoalbuminemia - Possibly due to combined effects of malnutrition and inflammation associated with comorbid chronic conditions. Will ensure adequate dietary protein intake and also consult candy catcher. 3. Hypertension - Restart suitable outpatient antihypertensive drugs when clinically appropriate. Revise regimen to ensure [id number] excellent BP control and guidance counselor patient on the injurious effects of uncontrolled hypertension. Nonpharmacologic measures to control hypertension like weight loss , salt restriction and exercise discussed. Importance of adherence to treatment regimen and attainment of normotension emphasized. 4. DVT prophylaxis - On Pradaxa for Afib. 5. Advance directives - Full code
--- NOTE | 2019-10-30 20:29 | PDOC ---
Documentation entered by Aaron Bailey SCRIBE, acting as scribe for Georgina Urbina MD. Georgina Urbina MD: This documentation has been prepared by the Lynn cortez Nirvannie, SCRIBE, under my direction and personally reviewed by me in its entirety. I confirm that the documentation accurately reflects all work, treatment, procedures, and medical decision making performed by me. Attending Attestation - Resident Resident Name: WhiteBharathi - ED Attending Attestation I have performed the following: I have examined & evaluated the patient, The case was reviewed & discussed with the resident, I agree w/resident's findings & plan, Exceptions are as noted - HPI HPI: 10/30/19 17:19 The patient is a year old female, with a significant past medical history of HTN , Pulmonary HTN, COPD, NOT ON HOME OXYGEN CHF, Afib (on Pradaxa), Breast CA (s/ p lumpectomy), Colitis, Diverticulitis, Chronic UTIs, and Insomnia, who presents to the emergency department with progressively worsening shortness of breath, weakness, and dysphagia. As per patient, over the past month and a half she has been experiencing increasing dysphagia with solids, nausea, shortness of breath, and productive cough. Aid at bedside notes that she has been requiring more assistance lately. Patient has not been eating much and notes 2 recent falls. Patient was advised by her PCP to report to the ED for further evaluation. She denies recent fevers, chills, headache or dizziness. She denies recent vomiting, diarrhea or constipation. She denies recent dysuria, frequency, urgency or hematuria. She denies recent chest pain or palpitations. Allergies: Meperidine HCl, Lactose Past surgical history: Appendectomy, cholecystectomy. Social history: Nonsmoker. Denies EtOH use and recreational drug use. Primary Care Physician: Dr. Haines Domestic Laundry Worker: Dr. Jules 10/30/19 20:21 - Physicial Exam PE: 10/30/19 20:22 AWAKE ALERT chachectic appearing lungs distant breath sounds. heart rrr nomr abd soft scaphoid, nontender. no palp masses. ext thin. no rash. 10/30/19 20:24 - Medical Decision Making 10/30/19 20:24 84 yo h/o aifb, on pradaxa, copd ( prior smoker) breast ca s/p lumpectomy, pulm htn here with progressively difficulty with eating. c/o nausea, no vomiting. c/ o difficulty swallowing solids, also no appetitie. lost 20 lbs over few weeks. no f/c . pt is a former smoker. no f/c no urinary complaints. no abd pain. decreased activity. differential worsening copd, pt desaturates to 92 when talking. cancer considered. anemia, electroyte abnormality, dehydration. infection. plan ua cxr , ekg basic labs. will obtain ct head/ c spine due to recent fal, on pradaxa. ( unclear timing as pt story is changes ) pt saw dr haines earlier today who wants her admitted for weight loss, dysphagia. may require GI , eval, speech and swallow, possible home oxygen if desaturation maybe a concern. may require increased level of care at home, lives at home with transcription typist aid, but is very weak. unable to perform ADLs. AID has found pt in bed last few days because unable to get ou of bed due to weakness. cxr shows infiltrate, upper lobe. will treate with master [facility] admitted. ua pending. labs. 10/30/19 20:24 Heart Score/ECG Review #1 General ECG Interpretation: Normal Rate, Normal Intervals, No acute ischemic changes Compared to previous ECG there are: Other (afib, TWI I, AVL)
[2019-10-30 20:58] LABS: EPI CELLS 5.1 /HPF (0-5/HPF); HYALINE CASTS 3 /lpf (0-8); PH,URINE 5.5 (5.0-8.0); URINE APPEARANCE CLOUDY; URINE BACTERIA 111.5 /hpf (NEGATIVE); URINE BILIRUBIN NEGATIVE (NEGATIVE); URINE COLOR YELLOW; URINE GLUCOSE (UA) NEGATIVE (NEGATIVE); URINE KETONE NEGATIVE (NEGATIVE); URINE LEUK ESTERASE 1+ (NEGATIVE); URINE NITRITE POSITIVE (NEGATIVE); URINE PROTEIN NEGATIVE (NEGATIVE); URINE WBC 17 /hpf (0-5)
[2019-10-30 21:21] LABS: YEAST NEGATIVE (NEGATIVE)
[2019-10-30] MEDS ORDERED: POTASSIUM CHLORIDE 20 MEQ PREMIX IVPB 100 ML IVPB ONE (22:34)
--- NOTE | 2019-10-30 23:12 | HP ---
CHIEF COMPLAINT: Failure to thrive PCP: Dr. Haines HISTORY OF PRESENT ILLNESS: Patient is an 84 year old female with PMH of HTN, COPD (no home O2), CHF, pulmonary HTN, Afib (on pradaxa), breast CA s/p lumpectomy who presents with failure to thrive over past month. Pt lives alone with a SAL[employer]ERSON [employer] 5 times a week. She was able to ambulate on her own and perform majority of her ADLs with minimal assistance up until a month ago. Pt has had decreased energy and overall weakness, decreased appetite (only eats a few bites each meal), and dysphagia. She states that she can no longer even shower herself due to weakness. She endorses difficulty swallowing only solids, including her medications (gets sensation that her pills are stuck in the middle of her throat ). She also complains of nausea and occasional abd discomfort but denies fevers , chills, nausea, vomiting, diarrhea. Pt also complains of intermittent SOB and productive cough over the past month. She has had a 22 pound weight loss. Denies night sweats. Of note, pt had an unwitnessed fall 2 weeks ago. Denies hitting head or LOC. CT head and c-spine in ED showed no acute pathology. Recent Travel: denies PAST MEDICAL HISTORY: As per HPI PAST SURGICAL HISTORY: Lumpectomy Appendectomy Cholecystectomy Social History: Smoking: denies Alcohol: denies Drugs: denies Allergies meperidine HCl [From Demerol] Adverse Reaction (Intermediate, Verified 07/07/19 03:29) Vomiting NAUSEA lactose-intolerant Adverse Reaction (Uncoded 07/07/19 03:29) HOME MEDICATIONS: Home Medications Medication Instructions Recorded Carvedilol [Coreg -] 3.125 mg PO BID 07/07/19 Dabigatran Etexilate Mesylate 150 mg PO BID 07/07/19 [Pradaxa -] Fluticasone Prop 0.05% Nasal 1 - 2 spray NS DAILY PRN 07/07/19 [Flonase -] Umeclidinium [place] [Incruse 62.5 mcg IH DAILY 07/07/19 Ellipta] Digoxin [Lanoxin -] 0.125 mg PO DAILY 30 Days #30 07/10/19 tablet Furosemide 20 mg PO DAILY 10/30/19 Mirtazapine 15 mg PO DAILY 10/30/19 REVIEW OF SYSTEMS CONSTITUTIONAL: generalized weakness, malaise, loss of appetite, weight change Absent: fever, chills, diaphoresis HEENT: difficulty swallowing Absent: rhinorrhea, nasal congestion, throat pain, throat swelling, mouth swelling, ear pain, eye pain, visual changes CARDIOVASCULAR: Absent: chest pain, syncope, palpitations, irregular heart rate, lightheadedness , peripheral edema RESPIRATORY: cough, shortness of breath Absent: dyspnea with exertion, orthopnea, wheezing, stridor, hemoptysis GASTROINTESTINAL: Absent: abdominal pain, abdominal distension, nausea, vomiting, diarrhea, constipation, melena, hematochezia GENITOURINARY: Absent: dysuria, frequency, urgency, hesitancy, hematuria, flank pain, genital pain MUSCULOSKELETAL: Absent: myalgia, arthralgia, joint swelling, back pain, neck pain SKIN: Absent: rash, itching, pallor HEMATOLOGIC/IMMUNOLOGIC: Absent: easy bleeding, easy bruising, lymphadenopathy, frequent infections ENDOCRINE: unexplained weight loss Absent: unexplained weight gain, heat intolerance, cold intolerance NEUROLOGIC: Absent: headache, focal weakness or paresthesias, dizziness, unsteady gait, seizure, mental status changes, bladder or bowel incontinence PSYCHIATRIC: Absent: anxiety, depression, suicidal or homicidal ideation, hallucinations. PHYSICAL EXAMINATION Vital Signs - 24 hr 10/30/19 10/30/19 10/30/19 16:18 16:23 16:52 Temperature 97.2 F L Pulse Rate 88 88 Pulse Rate [ 88 Apical] Respiratory 22 H 18 18 Rate Blood Pressure 126/63 Blood Pressure 124/77 [Left Arm] O2 Sat by Pulse 98 100 100 Oximetry (%) 10/30/19 19:25 Temperature 98 F Pulse Rate Pulse Rate [ 91 H Apical] Respiratory 19 Rate Blood Pressure Blood Pressure 115/66 [Left Arm] O2 Sat by Pulse 99 Oximetry (%) GENERAL: Awake, alert, and fully oriented, in no acute distress. Thin and cachectic appearing HEAD: Normal with no signs of trauma. EYES: Pupils equal, round and reactive to light, extraocular movements intact, sclera anicteric, conjunctiva clear. No lid lag. EARS, NOSE, THROAT: Ears normal, nares patent, oropharynx clear without exudates. Moist mucous membranes. NECK: Normal range of motion, supple without lymphadenopathy, JVD, or masses. LUNGS: Breath sounds equal, bibasilar crackles, no wheezes. No accessory muscle use. HEART: Iregular rate, normal S1 and S2 without murmur, rub or gallop. ABDOMEN: Soft, diffusely tender, not distended, normoactive bowel sounds, no guarding, no rebound, no masses. No hepatomegaly or splenomegaly. MUSCULOSKELETAL: Normal range of motion at all joints. No bony deformities or tenderness. No CVA tenderness. UPPER EXTREMITIES: 2+ pulses, warm, well-perfused. No cyanosis. No clubbing. No peripheral edema. LOWER EXTREMITIES: 2+ pulses, warm, well-perfused. No calf tenderness. No peripheral edema. NEUROLOGICAL: Cranial nerves II-XII intact. Normal speech. Normal gait. PSYCHIATRIC: Cooperative. Good eye contact. Appropriate mood and affect. SKIN: Warm, dry, normal turgor, no rashes or lesions noted, normal capillary refill. Laboratory Results - last 24 hr CBC, BMP 10/30/19 17:20 10/30/19 17:20 Urine Test Results Urine Color Yellow Urine Appearance Cloudy Urine pH 5.5 (5.0-8.0) Ur Specific [place] 1.015 (1.010-1.035) Urine Protein Negative (NEGATIVE) Urine Glucose (UA) Negative (NEGATIVE) Urine Ketones Negative (NEGATIVE) Urine Blood Negative (NEGATIVE) Urine Nitrite Positive (NEGATIVE) H Urine Bilirubin Negative (NEGATIVE) Ur Leukocyte Esterase 1+ (NEGATIVE) H ASSESSMENT/PLAN: Patient is an 84 year old female with PMH of HTN, COPD (no home O2), CHF, pulmonary HTN, Afib (on pradaxa), breast CA s/p lumpectomy who presents with failure to thrive, SOB w/cough, and dysphagia. #Failure to thrive Likely 2/2 CAP vs TB vs malignancy vs dysphagia CXR: progressive congestive changes with upper lobe infiltrates and pleural fluid with atelectasis at R base CT chest (10/18/19): small to moderate R pleural effusion, BL UL infiltrates , bibasilar and RML bronchiectasis w/bronchial wall thickening Will empirically treat PNA with IV ceftriaxone/azithromycin daily CT findings in setting of weight loss and weakness is concerning for TB or underlying malignancy. Place pt on isolation precautions pending quantiferon and sputum cx results. Consult IR (Dr. Daniel) for thoracentesis of enlarging pleural effusion Consult pulmonary (Dr. Stanley) for possible bronchoscopy/evaluation of BL infiltrates and pulmonary nodules Consult GI (Dr. Eid) for possible endoscopy to evaluate dysphagia. Modified barium swallow ordered Data Warehouse Consultant evaluation Speech and swallow consultation PT evaluation #Afib Pt takes pradaxa 150mg BID at home Will decrease to 75mg BID. May need to hold 2-3 days before procedures Cont home digoxin 0.125mg daily #HTN Cont home meds: coreg 3.125mg BID #CHF Echo (07/2019): normal EF Hold lasix in setting of dehydration #FEN Gentle hydration with IV NS @ 42ml/hr NPO pending RD recommendations and possible procedures in am Replete potassium with IV K 20meq, monitor closely #DVT ppx Pt on pradaxa 75mg BID #Dispo Pt states she is DNR/DNI in will but will discuss further with family ATTENDING PHYSICIAN STATEMENT I saw and evaluated the patient. I reviewed the resident's note and discussed the case with the resident. I agree with the resident's findings and plan as documented. SUBJECTIVE: OBJECTIVE: ASSESSMENT AND PLAN:
[2019-10-30] MEDS ORDERED: KCL 10 MEQ IVPB 10 MEQ/100 ML INFUS.BAG IVPB ONE (23:27)
[2019-10-30] MEDS: SODIUM CHLORIDE 1,000 ML IV SCH (23:40)
[2019-10-30] MEDS: KCL 10 MEQ IVPB 10 MEQ/100 ML INFUS.BAG IVPB SCH (23:40)
[2019-10-30] MEDS ORDERED: DABIGATRAN ETEXILATE MESYLATE 75 MG CAPSULE PO ONE (23:42)
[2019-10-30] MEDS ORDERED: CARVEDILOL 3.125 MG TABLET (FP) PO ONE (23:42)
[2019-10-30] MEDS ORDERED: CARVEDILOL 3.125 MG TABLET (FP) ONE (23:46)
[2019-10-31] MEDS ORDERED: KCL 10 MEQ IVPB 10 MEQ/100 ML INFUS.BAG IVPB ONE (00:59)
[2019-10-31] MEDS: KCL 10 MEQ IVPB 10 MEQ/100 ML INFUS.BAG IVPB SCH (01:04)
[2019-10-31] MEDS ORDERED: BENZOCAINE/MENTH/CETYLPYRD CL 1 EACH LOZENGE MM PRN (03:50)
[2019-10-31] MEDS ORDERED: ACETAMINOPHEN 1000 MG/100 ML VIAL (NON FORMULARY) IVPB ONE (04:53)
[2019-10-31] MEDS ORDERED: ACETAMINOPHEN INJECTION 100 ML IVPB ONE (05:04)
[2019-10-31 05:35] LABS: BASO % 1.9 % (0-2.0); EOS % 1.6 % (0-4.5); HEMOGLOBIN 11.1 GM/dL (10.7-15.3); LYMPH % 7.3 % (8-40); MCH 33.2 pg (25.7-33.7); MCHC 33.5 g/dl (32.0-36.0); MEAN CELL VOLUME 98.9 fl (80-96); MEAN PLT VOLUME 7.2 fl (7.5-11.1); MONO % 6.1 % (3.8-10.2); NEUT % 83.1 % (42.8-82.8); PLATELET COUNT 254 K/MM3 (134-434); RBC 3.34 M/mm3 (3.60-5.2); RDW 17.1 % (11.6-15.6); WHITE BLOOD COUNT 8.8 K/mm3 (4.0-10.0)
[2019-10-31] MEDS ORDERED: HEPARIN NA (PORCINE) 5,000 UNITS/ML 1ML VIAL SQ SCH (06:00)
[2019-10-31 10:20] LABS: ANISOCYTOSIS 1+; MACROCYTOSIS 1+; PLATELET ESTIMATE NORMAL
--- NOTE | 2019-10-31 10:25 | EKG ---
Test Reason : Blood Pressure : / mmHG Vent. Rate : 085 BPM Atrial Rate : 468 BPM P-R Int : 000 ms QRS Dur : 098 ms QT Int : 376 ms P-R-T Axes : 000 -28 166 degrees QTc Int : 447 ms ATRIAL FIBRILLATION INCOMPLETE RIGHT BUNDLE BRANCH BLOCK ABNORMAL ECG WHEN COMPARED WITH ECG OF 07-JUL-2019 06:10, NONSPECIFIC T WAVE ABNORMALITY, WORSE IN INFERIOR LEADS INVERTED T WAVES HAVE REPLACED NONSPECIFIC T WAVE ABNORMALITY IN ANTERIOR LEADS Confirmed by MD Marty, Corey ([id number]) on 10/31/2019 10:24:48 AM Referred By: Confirmed By:Corey Ferguson MD
--- NOTE | 2019-10-31 10:33 | CONSULT ---
Admitting History and Physical - Admission History of Present Illness: Per EMR- 84 year old female with PMH of HTN, COPD (no home O2), CHF, pulmonary HTN, Afib (on pradaxa), breast CA s/p lumpectomy who presents with failure to thrive, SOB w/cough, and dysphagia. #Failure to thrive Likely 2/2 CAP vs TB vs malignancy vs dysphagia CXR: progressive congestive changes with upper lobe infiltrates and pleural fluid with atelectasis at R base CT chest (10/18/19): small to moderate R pleural effusion, BL UL infiltrates , bibasilar and RML bronchiectasis w/bronchial wall thickening Will empirically treat PNA with IV ceftriaxone/azithromycin daily CT findings in setting of weight loss and weakness is concerning for TB or underlying malignancy. Place pt on isolation precautions pending quantiferon and sputum cx results. MBS ordered Selected Entries 10/30/19 10/30/19 10/31/19 16:18 19:25 05:16 Temperature 97.2 F L 98 F 97.6 F 10/31/19 08:00 Temperature 97.8 F Laboratory Tests 10/30/19 10/31/19 17:20 05:20 WBC 10.8 H 8.8 This is my first consult with this pt. History Source: Patient, Family Member Limitations to Obtaining History: No Limitations - Past Medical History Cardiovascular: Yes: AFIB, HTN, Murmur, Pulmonary Hypertension Pulmonary: Yes: Other Gastrointestinal: Yes: GERD Psych: Yes: Anxiety - Past Surgical History Past Surgical History: Yes: Appendectomy, Cholecystectomy - Smoking History Smoking history: Former smoker Have you smoked in the past 12 months: No If you are a former smoker, when did you quit?: 40 years ago - Alcohol/Substance Use Hx Alcohol Use: Yes (wine occassionally) History of Substance Use: reports: None - Social History ADL: Independent 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 History of Recent Travel: No History - Admission Reason For Visit: DYSPHAGIA - Diagnostics X-ray: Report Reviewed CT Scan: Report Reviewed - General Mental Status: Alert and Oriented, Awake and Alert, Able to Follow Commands Attention: Intact Ability to Follow Directions: Excellent Head/Neck Control: WFL - Hearing Hearing: Functional Speech Evaluation - Communication Primary Language: [place] Communication: Yes: Within Normal Limits Oral Expression Ability: Yes: No Impairment - Speech Production Able to Make Needs Known: Yes: WNL Intelligibility: Yes: WNL - Speech Characteristics Voice Loudness: Normal Voice Pitch: Yes: Normal Voice Phonatory-based Quality: Yes: Normal Speech Pattern: Normal Speech Clarity: < 100% Nasal Resonance: Normal Articulation: Yes: Precise Rate of Speech: Intact - Language/Auditory Comprehension Follows: Yes: 1 Stage Simple Commands - Language/Verbal Expression Able to Respond to Simple Queries: Yes: WNL Able to Communicate Wants and Needs: Yes: WNL Functional Communication Status: Yes: WNL - Swallow Evaluation/Bedside Assessment Current Nutritional Intake: NPO Oral Secretions: Yes: WFL Dentition: Yes: Adequate, Missing Teeth Facial Symmetry at Rest: Symmetrical Against Resistance Opening: Normal Against Resistance Closing: Normal Pucker Lips: Normal Smile: Normal Lingual Movement: Normal, Symmetric Lingual Speed of Movement: Normal Lingual Movement Strgth Against Opposition: Normal Lingual Movement Characteristics: Normal Velopharyngeal Movement: Normal Laryngeal Elevation: WFL Laryngeal Movement: Able to Palpate Rate of Intake: WFL Bolus Size: WFL Labial Seal: WFL Chewing: WFL (slow) Oral Prep Time: WFL A-P Transit: WFL Pocketing: None Coughing/Throat Clear: No Change in Voice: No Recommendations - Speech Evaluation, Impression/Plan Impression: Sp/sw/cognition intact. Pending MBS ordered - Dysphagia Impressions/Plan Dysphagia Impressions: Ongoing Evaluation *Silent aspiration: cannot be R/O at bedside Recommendations: MBS w Esophagus
[2019-10-31] MEDS: CARVEDILOL 3.125 MG TABLET (FP) PO SCH ×2 (11:00→21:58)
[2019-10-31] MEDS: DABIGATRAN ETEXILATE MESYLATE 75 MG CAPSULE PO SCH ×2 (11:00→21:58)
[2019-10-31] MEDS: TIOTROPIUM BROMIDE 2.5 MCG (SPIRIVA) RESPIMAT INHALER IH SCH (11:00)
[2019-10-31] MEDS: DIGOXIN 0.125 MG TABLET (FP) PO SCH (11:00)
--- NOTE | 2019-10-31 12:13 | CON.PULM ---
Consult Consult Specialty:: PULMONARY Referred by:: Dr Woods Reason for Consultation:: lung infiltrates - History of Present Illness Chief Complaint: failure to thrive History of Present Illness: 84yo female with h/o HTN, COPD, chronic bronchitis, LV diastolic dysfunction, pulmonary HTN, atrial fibrillation, h/o breast ca s/p lumpectomy who presents with poor PO intake, generalized weakness x months. Reports occasional shortness of breath and a cough productive of clear sputum. No fevers but reports that she is always cold. Also reports episode of night sweats when she was in rehab. Daughter states she lost about 10lbs in the past few months. 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 She is a remote smoker. Reports tuberculosis exposure as a child, mother and grandfather had TB. - History Source History Provided By: Patient, Family Member, Medical Record Limitations to Obtaining History: No Limitations - Past Medical History Cardio/Vascular: Yes: AFIB, HTN, Murmur, Pulmonary Hypertension Pulmonary: Yes: Other Gastrointestinal: Yes: GERD Psych: Yes: Anxiety - Past Surgical History Past Surgical History: Yes: Appendectomy, Cholecystectomy - Alcohol/Substance Use Hx Alcohol Use: Yes (wine occassionally) History of Substance Use: reports: None - Smoking History Smoking history: Former smoker Have you smoked in the past 12 months: No If you are a former smoker, when did you quit?: 40 years ago - Social History ADL: Independent 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 History of Recent Travel: No Home Medications - Allergies Allergies/Adverse Reactions: Allergies Allergy/AdvReac Type Severity Reaction Status Date / Time meperidine HCl [From Demerol] AdvReac Intermediate Vomiting Verified 07/07/19 03 :29 lactose-intolerant AdvReac Uncoded 07/07/19 03:29 - Home Medications Home Medications: Ambulatory Orders Carvedilol [Coreg -] 3.125 mg PO BID 07/07/19 Dabigatran Etexilate Mesylate [Pradaxa -] 150 mg PO BID 07/07/19 Fluticasone Prop 0.05% Nasal [Flonase -] 1 - 2 spray NS DAILY PRN 07/07/19 Umeclidinium [place] [Incruse Ellipta] 62.5 mcg IH DAILY 07/07/19 Digoxin [Lanoxin -] 0.125 mg PO DAILY 30 Days #30 tablet 07/10/19 Furosemide 20 mg PO DAILY 10/30/19 Mirtazapine 15 mg PO DAILY 10/30/19 Review of Systems - Review of Systems Constitutional: reports: Loss of Appetite, Night Sweats, Unintentional Wgt. Loss , Weakness. denies: Fever Eyes: denies: Recent Change in Vision HENT: denies: Nasal Congestion, Throat Pain Neck: denies: Stiffness, Tenderness Cardiovascular: reports: Shortness of Breath. denies: Chest Pain, Edema, Palpitations Respiratory: reports: Cough. denies: Hemoptysis, Wheezing Gastrointestinal: reports: Nausea. denies: Abdominal Pain Genitourinary: denies: Dysuria, Hematuria Neurological: denies: Dizziness, Headache Endocrine: denies: Unexplained Weight Loss Physical Exam Vital Sings: Vital Signs Temperature 97.8 F 10/31/19 08:00 Pulse Rate 62 10/31/19 08:00 Respiratory Rate 15 10/31/19 08:00 Blood Pressure 101/64 10/31/19 08:00 O2 Sat by Pulse Oximetry (%) 100 10/31/19 08:00 Constitutional: Yes: Cachectic Eyes: Yes: Conjunctiva Clear, EOM Intact HENT: Yes: Atraumatic, Normocephalic Neck: Yes: Supple, Trachea Midline Cardiovascular: Yes: Regular Rate and Rhythm Respiratory: Yes: Diminished (distant breath sounds) ...Clubbing: No Gastrointestinal: Yes: Normal Bowel Sounds, Soft. 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
--- NOTE | 2019-10-31 15:17 | CONS ---
DATE OF CONSULTATION: DATE OF DICTATION: 10/31/2019 GASTROENTEROLOGY CONSULTATION HISTORY OF PRESENT ILLNESS: The patient is an 84-year-old female with a past medical history of hypertension, COPD, CHF, pulmonary hypertension, atrial fibrillation, on Pradaxa, breast cancer status post lumpectomy who is admitted to the hospital with failure to thrive. As per the daughter who is at the bedside, she has been having some difficulty swallowing since August, and they have been trying to get on the schedule for a barium swallow. However, they were unable to do so. As per the patient, she feels food sticking to her throat. She denies a history of food impaction in the past. She states she had a sore throat but denies odynophagia. She denies reflux symptoms. She admits to occasional nausea, no vomiting, no abdominal pain, no diarrhea. She does admit to occasional constipation also. However, as per the family secondary to her swallowing difficulty, she has not been tolerating much p.o. intake. She has not had an endoscopy or colonoscopy for many years. PAST MEDICAL AND SURGICAL HISTORY: As listed in the HPI with the addition of appendectomy, cholecystectomy, and lumpectomy. SOCIAL HISTORY: Never smoked, used drugs, or drank alcohol. FAMILY HISTORY: Noncontributory. ALLERGIES: and LACTOSE INTOLERANCE. HOME MEDICATIONS: Reviewed include carvedilol, Pradaxa, fluticasone, Ellipta, Lanoxin, furosemide, and mirtazapine. REVIEW OF SYSTEMS: As per the HPI. PHYSICAL EXAMINATION: Vital Signs: Temperature 98, pulse 70, blood pressure 101/55, respiratory rate 12, oxygen saturation 97% on room air. General: In no acute distress. HEENT: Anicteric sclerae. Cardiovascular: S1, S2, regular rate and rhythm. Lungs: Bilaterally clear to auscultation. Abdomen: Soft, nontender. Extremities: No edema. LABORATORY: White blood cell count 8.8, hemoglobin and hematocrit 11/33, MCV 254, sodium 131, potassium 3.4, BUN/creatinine 22/0.8, glucose 100, total bilirubin 0.5, AST 21, ALT 8, troponin negative. Urine: 1+ leukocyte esterase, positive nitrite. She did not have any imaging studies during this hospitalization. IMPRESSION: Dysphagia, rule out structural abnormality versus primary motility dysfunction versus infectious etiology. RECOMMENDATION: She is currently about to undergo a modified barium swallow. Will follow up these results. In addition, she should have a speech and swallow evaluation. Would start her on some acid suppression therapy with Protonix 40 mg p.o. daily in case she does have esophagitis as a contributing factor. If her symptoms do not improve and modified barium swallow is not revealing, she may be a candidate for further endoscopic evaluation. Further recommendations pending imaging results. DO NIKOLAY MOREIRA/[id number]
--- NOTE | 2019-10-31 15:50 | PN ---
Progress Note (short form) - Note Progress Note: 84 F h/o HTN, COPD (no home O2), CHF, pulmonary HTN, Afib (on Pradaxa), breast CA s/p lumpectomy who presents with failure to thrive over past month. Patient' s daughter endorses decreased PO intake for the past several weeks, resulting in significant weight loss. Patient also admits to periodic night sweats and subjective fever and chills. Patient placed in airborne isolation for suspected TB in view of CT chest findings of UL infiltrates. AFB/Quantiferon pending. Currently awaiting barium esophagram for progressive dysphagia. Otherwise no documented fevers, breathing is stable on NC O2. PE VSS GA comfortable, cachectic, temporal wasting, AAox3, speaking in full sentences, answering to questions HEENT NC/AT, EOMI, no JVD, no oral thrush, no palpable lymphadenopathy Chest CTAB, no crackles or wheezing CVS S1, S2+, irregularly irregular Abd thin body habitus, soft, NT, ND Ext No LE edema, thin extremities w/ muscle wasting Vital Signs (72 hours) 10/30/19 10/30/19 10/30/19 16:18 16:23 16:52 Temperature 97.2 F L Pulse Rate 88 88 Pulse Rate [ 88 Apical] Respiratory 22 H 18 18 Rate Blood Pressure 126/63 Blood Pressure 124/77 [Left Arm] O2 Sat by Pulse 98 100 100 Oximetry (%) 10/30/19 10/31/19 10/31/19 19:25 05:16 08:00 Temperature 98 F 97.6 F 97.8 F Pulse Rate Pulse Rate [ 91 H 76 62 Apical] Respiratory 19 17 15 Rate Blood Pressure Blood Pressure 115/66 113/63 101/64 [Left Arm] O2 Sat by Pulse 99 100 100 Oximetry (%) 10/31/19 10/31/19 13:49 15:40 Temperature 98.1 F 98.0 F Pulse Rate Pulse Rate [ 70 69 Apical] Respiratory 18 20 Rate Blood Pressure Blood Pressure 101/55 L 106/62 [Left Arm] O2 Sat by Pulse 97 98 Oximetry (%) Laboratory Results - last 24 hr 10/30/19 10/30/19 10/30/19 17:20 17:20 17:20 WBC 10.8 H RBC 3.86 Hgb 12.7 Hct 38.7 MCV 100.4 H MCH 33.0 MCHC 32.9 RDW 17.2 H Plt Count 331 MPV 7.6 Absolute Neuts (auto) 9.0 H Neutrophils % 83.1 H Neutrophils % (Manual) Band Neutrophils % Lymphocytes % 5.7 L D Lymphocytes % (Manual) Monocytes % 9.5 Monocytes % (Manual) Eosinophils % 1.5 Eosinophils % (Manual) Basophils % 0.2 Basophils % (Manual) Myelocytes % (Man) Promyelocytes % (Man) Blast Cells % (Manual) Nucleated RBC % 0 Metamyelocytes Hypochromia Platelet Estimate Polychromasia Poikilocytosis Anisocytosis Microcytosis Macrocytosis Sodium 131 L Potassium 3.4 L Chloride 91 L Carbon Dioxide 28 Anion Gap 13 BUN 22.5 H Creatinine 0.8 Est GFR (CKD-EPI)AfAm 77.37 Est GFR (CKD-EPI)NonAf 66.76 Random Glucose 100 Calcium 8.7 Phosphorus 2.9 Magnesium 1.9 Total Bilirubin 0.5 AST 21 ALT 8 L Alkaline Phosphatase 89 Creatine Kinase 36 Troponin I < 0.02 Total Protein 7.3 Albumin 3.0 L Urine Color Urine Appearance Urine pH Ur Specific [place] Urine Protein Urine Glucose (UA) Urine Ketones Urine Blood Urine Nitrite Urine Bilirubin Urine Urobilinogen Ur Leukocyte Esterase Urine WBC (Auto) Urine RBC (Auto) Urine Casts (Auto) U Epithel Cells (Auto) Urine Bacteria (Auto) Urine Yeast (Auto) 10/30/19 10/31/19 10/31/19 20:10 05:20 05:20 WBC 8.8 RBC 3.34 L Hgb 11.1 Hct 33.0 MCV 98.9 H MCH 33.2 MCHC 33.5 RDW 17.1 H Plt Count 254 D MPV 7.2 L Absolute Neuts (auto) 7.3 Neutrophils % 83.1 H Neutrophils % (Manual) 81.4 Band Neutrophils % 0.0 Lymphocytes % 7.3 L D Lymphocytes % (Manual) 4.9 L Monocytes % 6.1 Monocytes % (Manual) 9 Eosinophils % 1.6 Eosinophils % (Manual) 3.9 Basophils % 1.9 D Basophils % (Manual) 0.0 Myelocytes % (Man) 0 Promyelocytes % (Man) 0 Blast Cells % (Manual) 0 Nucleated RBC % 0 Metamyelocytes 1 Hypochromia 1+ Platelet Estimate Normal Polychromasia 0 Poikilocytosis 0 Anisocytosis 1+ Microcytosis 0 Macrocytosis 1+ Sodium Cancelled Potassium Cancelled Chloride Cancelled Carbon Dioxide Cancelled Anion Gap Cancelled BUN Cancelled Creatinine Cancelled Est GFR (CKD-EPI)AfAm Cancelled Est GFR (CKD-EPI)NonAf Cancelled Random Glucose Cancelled Calcium Cancelled Phosphorus Cancelled Magnesium Cancelled Total Bilirubin Cancelled AST Cancelled ALT Cancelled Alkaline Phosphatase Cancelled Creatine Kinase Troponin I Total Protein Cancelled Albumin Cancelled Urine Color Yellow Urine Appearance Cloudy Urine pH 5.5 Ur Specific [place] 1.015 Urine Protein Negative Urine Glucose (UA) Negative Urine Ketones Negative Urine Blood Negative Urine Nitrite Positive H Urine Bilirubin Negative Urine Urobilinogen 1.0 Ur Leukocyte Esterase 1+ H Urine WBC (Auto) 17 Urine RBC (Auto) 3-5 Urine Casts (Auto) 3 U Epithel Cells (Auto) 5.1 Urine Bacteria (Auto) 111.5 Urine Yeast (Auto) Negative Microbiology 10/30/19 00:15 Gram Stain - Final Sputum - Expectorated Current Medications Generic Name Dose Route Start Last Admin Trade Name Freq PRN Reason Stop Dose Admin Benzocaine/Menthol 1 each 10/31/19 03:50 10/31/19 04:39 Cepacol Lozenge - MM 1 each PRN PRN Administration SORE THROAT Carvedilol 3.125 mg 10/31/19 10:00 10/31/19 11:00 Coreg - PO Not Given BID LAVINIA Dabigatran 75 mg 10/31/19 10:00 10/31/19 11:00 Pradaxa - PO Not Given BID LAVINIA Digoxin 0.125 mg 10/31/19 10:00 10/31/19 11:00 Lanoxin - PO Not Given DAILY LAVINIA Sodium Chloride 1,000 mls @ 42 mls/hr 10/30/19 22:30 10/30/19 23:40 Normal Saline - IV 42 mls/hr ASDIR LAVINIA Administration Ceftriaxone Sodium 1 gm/ 50 mls @ 100 mls/hr 10/31/19 20:00 Dextrose IVPB DAILY [facility] Protocol Mirtazapine 15 mg 10/31/19 22:00 Remeron - PO HS LAVINIA Tiotropium [place] 2 puff 10/31/19 10:00 10/31/19 11:00 Spiriva Respimat IH 2 puff DAILY LAVINIA Administration A/P: 84 year old F with COPD not on O2, Afib on Xarelto, pulm HTN, HFpEF, presents with failure to thrive, chest CT findings suspicious for TB/non-TB mycobacterium , placed in airborne isolation, empirically being treated for CAP. Progressive upper infiltrates on Chest CT possible 2/2 TB v.s. non-TB mycobacterium, keep on airborne isolation until AFBx3 negative and quantiferon negative Cont. Ceftriaxone for CAP, DC azithromycin as this will partially treat mycobacterium NC O2 to achieve O2 >90% Incentive spirometry, pulmonary toileting, nebs PRN Pulmonary: Dr. Stanley Progressive dysphagia Speech and swallow cleared patient for soft diet however this does not rule out structural, motility v.s. infectious cause of dysphagia this may be contributing to significant weight loss GI recommending esophagram and possible EGD Aspiration precautions, start daily PPI GI: Dr. Armstrong Afib on Xarelto dose adjusted according to weight no signs of bleeding rate controlled with Digoxin and Coreg, will obtain Digoxin levels (to rule out toxicity in view of decreased appetite) HTN low normal, hold Lasix in view of dry state Cont. Coreg HFpEF not in exacerbation Cont. BB, , hold Lasix DVT ppx: Xarelto GI ppx: daily PPI FEN IV hydration, daily chem, Soft diet w/ ensure supplementation Visit type - Emergency Visit Emergency Visit: Yes ED Registration Date: 10/30/19 Care time: The patient presented to the Emergency Department on the above date and was hospitalized for further evaluation of their emergent condition. - New Patient This patient is new to me today: Yes Date on this admission: 10/31/19 - Critical Care Critical Care patient: No
[2019-10-31] MEDS: PANTOPRAZOLE 40 MG TABLET (FP) PO SCH (17:13)
[2019-10-31] MEDS ORDERED: cefTRIAXone SODIUM 1 GM VIAL ONE (19:55)
[2019-10-31] MEDS ORDERED: DEXTROSE 5%-WATER - 50 ML IVPB ONE (19:55)
[2019-10-31] MEDS ORDERED: AZITHROMYCIN IVPB 500 MG/250 ML BAG IVPB SCH (20:00)
[2019-10-31] MEDS: CEFTRIAXONE 1 GM in DEXTROSE 5%-WATER - 50 ML IVPB SCH (20:04)
[2019-10-31 21:13] LABS: BLOOD UREA NITROGEN 17.8 mg/dL (7-18); CREATININE 0.7 mg/dL (0.55-1.3); POTASSIUM 3.2 mmol/L (3.5-5.1)
[2019-10-31] MEDS ORDERED: PT OWN MED DRAWER 7, Y5N ONE (21:16)
[2019-10-31 21:35] LABS: ALBUMIN 2.4 g/dl (3.4-5.0); ALK PHOS 78 U/L (45-117); BILIRUBIN,DIRECT 0.2 mg/dL (0.0-0.2); BILIRUBIN,TOTAL 0.4 mg/dL (0.2-1); SGOT/AST 13 U/L (15-37); SGPT/ALT < 6 U/L (13-61); TOT PROT 6.2 g/dl (6.4-8.2)
[2019-10-31] MEDS: MIRTAZAPINE 15 MG TABLET (FP) PO SCH (21:59)
[2019-10-31] MEDS: SODIUM CHLORIDE 1,000 ML IV SCH (21:59)
[2019-11-01 06:50] LABS: BASO % 0.5 % (0-2.0); EOS % 3.6 % (0-4.5); HEMATOCRIT 32.5 % (32.4-45.2); HEMOGLOBIN 10.8 GM/dL (10.7-15.3); LYMPH % 6.7 % (8-40); MCH 33.1 pg (25.7-33.7); MCHC 33.3 g/dl (32.0-36.0); MEAN CELL VOLUME 99.4 fl (80-96); MEAN PLT VOLUME 7.6 fl (7.5-11.1); MONO % 10.5 % (3.8-10.2); NEUT % 78.7 % (42.8-82.8); PLATELET COUNT 266 K/MM3 (134-434); RBC 3.27 M/mm3 (3.60-5.2); RDW 17.2 % (11.6-15.6)
[2019-11-01 07:56] LABS: ALBUMIN 2.1 g/dl (3.4-5.0); ALK PHOS 69 U/L (45-117); ANION GAP 8 MMOL/L (8-16); BILIRUBIN,DIRECT 0.2 mg/dL (0.0-0.2); BILIRUBIN,TOTAL 0.4 mg/dL (0.2-1); BLOOD UREA NITROGEN 14.9 mg/dL (7-18); CHLORIDE 101 mmol/L (98-107); CO2 28 mmol/L (21-32); CREATININE 0.5 mg/dL (0.55-1.3); GLUCOSE,RANDOM 85 mg/dL (74-106); POTASSIUM 3.3 mmol/L (3.5-5.1); SGOT/AST 12 U/L (15-37); SGPT/ALT < 6 U/L (13-61); SODIUM 136 mmol/L (136-145); TOT PROT 5.7 g/dl (6.4-8.2)
[2019-11-01] MEDS ORDERED: cefTRIAXone SODIUM 1 GM VIAL ONE (08:10)
[2019-11-01] MEDS ORDERED: DEXTROSE 5%-WATER - 50 ML IVPB ONE (08:11)
[2019-11-01] MEDS: DIGOXIN 0.125 MG TABLET (FP) PO SCH (09:47)
[2019-11-01] MEDS: PANTOPRAZOLE 40 MG TABLET (FP) PO SCH (09:47)
[2019-11-01] MEDS: CEFTRIAXONE 1 GM in DEXTROSE 5%-WATER - 50 ML IVPB SCH (09:48)
[2019-11-01] MEDS: CARVEDILOL 3.125 MG TABLET (FP) PO SCH ×2 (09:48→21:38)
[2019-11-01] MEDS: DABIGATRAN ETEXILATE MESYLATE 75 MG CAPSULE PO SCH ×2 (09:48→21:38)
[2019-11-01] MEDS: TIOTROPIUM BROMIDE 2.5 MCG (SPIRIVA) RESPIMAT INHALER IH SCH (11:24)
--- NOTE | 2019-11-01 11:47 | PN ---
Progress Note (short form) - Note Progress Note: This is a 84-year-old female who was admitted for possible rule out tuberculosis. She is already on empiric antibiotic. And she is placed in isolation. She is comfortable denies any shortness of breath fever chills nausea vomiting. She has given one specimen of sputum yet. Vital signs Vital Signs Period Temp Pulse Resp BP Sys/Brewer Pulse Ox Last 24 Hr 97.8 F-98.5 F 69-88 18-20 96-110/52-62 96-99 Physical examination GA comfortable, cachectic, temporal wasting, AAox3, speaking in full sentences, answering to questions HEENT NC/AT, EOMI, no JVD, no oral thrush, no palpable lymphadenopathy Chest CTAB, no crackles or wheezing CVS S1, S2+, irregularly irregular Abd thin body habitus, soft, NT, ND Ext No LE edema, thin extremities w/ muscle wasting CBC, BMP 11/01/19 05:15 11/01/19 05:15 Past Medical History Cardio/Vascular AFIB,HTN,Murmur,Pulmonary Hypertension Pulmonary Other Gastrointestinal GERD Psych Anxiety Assessment and plan 84 year old F with COPD not on O2, Afib on Xarelto, pulm HTN, HFpEF, presents with failure to thrive, chest CT findings suspicious for TB/non-TB mycobacterium , placed in airborne isolation, empirically being treated for CAP. Progressive upper infiltrates on Chest CT possible 2/2 TB v.s. non-TB mycobacterium, keep on airborne isolation until AFBx3 negative and quantiferon negative Cont. Ceftriaxone for CAP, azithromycin was stopped by pulmonary because as this will partially treat mycobacterium Progressive dysphagia Speech and swallow cleared patient for soft diet however this does not rule out structural, motility v.s. infectious cause of dysphagia this may be contributing to significant weight loss GI recommending esophagram and possible EGD Aspiration precautions, start daily PPI GI: Dr. Armstrong Atrial fibrillation dose adjusted according to weight no signs of bleeding rate controlled with Digoxin and Coreg, will obtain Digoxin levels (to rule out toxicity in view of decreased appetite) Hypertension low normal, hold Lasix in view of dry state Cont. Coreg Heart failure stable not in exacerbation Cont. BB, , hold Lasix DVT ppx: Xarelto GI ppx: daily PPI FEN IV hydration, daily chem, Soft diet w/ ensure supplementation Current Medications Benzocaine/Menthol (Cepacol Lozenge -) 1 each MM PRN PRN PRN Reason: SORE THROAT Last Admin: 10/31/19 04:39 Dose: 1 each Carvedilol (Coreg -) 3.125 mg PO BID [facility] Last Admin: 11/01/19 09:48 Dose: 3.125 mg Dabigatran (Pradaxa -) 75 mg PO BID [facility] Last Admin: 11/01/19 09:48 Dose: 75 mg Digoxin (Lanoxin -) 0.125 mg PO DAILY [facility] Last Admin: 11/01/19 09:47 Dose: 0.125 mg Sodium Chloride (Normal Saline -) 1,000 mls @ 42 mls/hr IV ASDIR [facility] Last Admin: 10/31/19 21:59 Dose: 42 mls/hr Ceftriaxone Sodium 1 gm/ (Dextrose) 50 mls @ 100 mls/hr IVPB DAILY [facility]; Protocol Last Admin: 11/01/19 09:48 Dose: 100 mls/hr Mirtazapine (Remeron -) 15 mg PO HS [facility] Last Admin: 10/31/19 21:59 Dose: 15 mg Pantoprazole Sodium (Protonix -) 40 mg PO DAILY [facility] Last Admin: 11/01/19 09:47 Dose: 40 mg Tiotropium [place] (Spiriva Respimat) 2 puff IH DAILY [facility] Last Admin: 11/01/19 11:24 Dose: 2 puff
--- NOTE | 2019-11-01 11:50 | PN ---
Progress Note (short form) - Note Progress Note: PULMONARY MILD SUBJECTIVE IMPROVEMENT VSS/AFEBRILE Constitutional: Yes: Cachectic Eyes: Yes: Conjunctiva Clear, EOM Intact HENT: Yes: Atraumatic, Normocephalic Neck: Yes: Supple, Trachea Midline Cardiovascular: Yes: Regular Rate and Rhythm Respiratory: Yes: Diminished (distant breath sounds) ...Clubbing: No Gastrointestinal: Yes: Normal Bowel Sounds, Soft. 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
--- NOTE | 2019-11-01 12:51 | PN.GI ---
GI Progress Note Subjective: Denies dysphagia. S/S eval performed. Advised chopped soft diet. patient refused chopped diet and is getting regular diet. She thought breakfast was bland. TB being ruled out MBS: limited evaluation but esophagus appeared to empty well - Objective Vital Signs: Vital Signs Temperature 98 F 11/01/19 09:00 Pulse Rate 88 11/01/19 09:47 Respiratory Rate 11/01/19 09:00 Blood Pressure 100/60 11/01/19 09:00 O2 Sat by Pulse Oximetry (%) 96 10/31/19 21:00 Constitutional: Calm Eyes: No: Sclera Icterus Cardiovascular: Yes: Regular Rate and Rhythm Respiratory: Yes: Rhonchi (right upper lung field) Gastrointestinal Inspection: No: Distention ...Auscultate: Yes: Normoactive Bowel Sounds ...Palpate: Yes: Soft. No: Hepatomegaly, Splenomegaly, Tenderness Edema: No (No LE edema) Neurological: Yes: Alert Labs: CBC, BMP 11/01/19 05:15 11/01/19 05:15 Hepatic Panel Total Bilirubin 0.4 mg/dL (0.2-1) 11/01/19 05:15 Direct Bilirubin 0.2 mg/dL (0.0-0.2) 11/01/19 05:15 AST 12 U/L (15-37) L 11/01/19 05:15 ALT < 6 U/L (13-61) L 11/01/19 05:15 Alkaline Phosphatase 69 U/L (45-117) 11/01/19 05:15 Albumin 2.1 g/dl (3.4-5.0) L 11/01/19 05:15 Problem List - Problems (1) Dysphagia Assessment/Plan: Patient currently denies swallowing complaints and tolerating PO When pulmonary w/u permits, formal barium esophagram Code(s): R13.10 - DYSPHAGIA, UNSPECIFIED Qualifiers: Dysphagia type: unspecified Qualified Code(s): R13.10 - Dysphagia, unspecified
[2019-11-01] MEDS ORDERED: PT OWN MED DRAWER 7, Y5N ONE ×2 (16:50→21:24)
[2019-11-01] MEDS: SODIUM CHLORIDE 1,000 ML IV SCH (21:38)
[2019-11-01] MEDS: MIRTAZAPINE 15 MG TABLET (FP) PO SCH (21:38)
[2019-11-02 08:56] LABS: BASO % 0.5 % (0-2.0); EOS % 2.6 % (0-4.5); HEMATOCRIT 36.2 % (32.4-45.2); HEMOGLOBIN 11.9 GM/dL (10.7-15.3); LYMPH % 8.8 % (8-40); MCH 32.9 pg (25.7-33.7); MCHC 32.8 g/dl (32.0-36.0); MEAN CELL VOLUME 100.4 fl (80-96); MEAN PLT VOLUME 7.1 fl (7.5-11.1); MONO % 11.7 % (3.8-10.2); NEUT % 76.4 % (42.8-82.8); PLATELET COUNT 274 K/MM3 (134-434); RDW 17.4 % (11.6-15.6); WHITE BLOOD COUNT 5.9 K/mm3 (4.0-10.0)
--- NOTE | 2019-11-02 09:00 | PN ---
Teaching Attending Note Name of Resident: Kisha Morales ATTENDING PHYSICIAN STATEMENT I saw and evaluated the patient. I reviewed the resident's note and discussed the case with the resident. I agree with the resident's findings and plan as documented. SUBJECTIVE: OBJECTIVE: Vital Signs Temperature 98.6 F 11/02/19 05:56 Pulse Rate 86 11/02/19 05:56 Respiratory Rate 20 11/02/19 05:56 Blood Pressure 121/52 L 11/02/19 05:56 O2 Sat by Pulse Oximetry (%) 97 11/01/19 21:00 General: Elderly woman, comfortable, not in distress HEENT; mucous membranes moist, no anemia, no jaundice, PERRLA, no nystagmus Neck: No JVD, supple, no bruit, thyroid palpably normal, normal carotid pulsations. Chest: Nontender, clear to auscultation bilaterally/bilateral wheezing/ bilateral basal rales. CVS: S1-S2 regular/irregular no murmur/gallop/rub Abdomen: Nondistended, soft, bowel sounds present. Extremities: No edema., No calf tenderness, pulses present CNC SPECIALIST: AO X3 , no gross motor sensory deficit CBC, BMP 11/02/19 08:40 11/02/19 08:40 Active Medications Benzocaine/Menthol (Cepacol Lozenge -) 1 each MM PRN PRN PRN Reason: SORE THROAT Last Admin: 10/31/19 04:39 Dose: 1 each Carvedilol (Coreg -) 3.125 mg PO BID [facility] Last Admin: 11/01/19 21:38 Dose: 3.125 mg Dabigatran (Pradaxa -) 75 mg PO BID [facility] Last Admin: 11/01/19 21:38 Dose: 75 mg Digoxin (Lanoxin -) 0.125 mg PO DAILY [facility] Last Admin: 11/01/19 09:47 Dose: 0.125 mg Sodium Chloride (Normal Saline -) 1,000 mls @ 42 mls/hr IV ASDIR [facility] Last Admin: 11/01/19 21:38 Dose: 42 mls/hr Ceftriaxone Sodium 1 gm/ (Dextrose) 50 mls @ 100 mls/hr IVPB DAILY [facility]; Protocol Last Admin: 11/01/19 09:48 Dose: 100 mls/hr Mirtazapine (Remeron -) 15 mg PO HS [facility] Last Admin: 11/01/19 21:38 Dose: 15 mg Pantoprazole Sodium (Protonix -) 40 mg PO DAILY [facility] Last Admin: 11/01/19 09:47 Dose: 40 mg Tiotropium [place] (Spiriva Respimat) 2 puff IH DAILY [facility] Last Admin: 11/01/19 11:24 Dose: 2 puff ASSESSMENT AND PLAN: 84 year old female with PMH of HTN, COPD (no home O2), CHF , pulmonary HTN, Afib (on pradaxa), breast CA s/p lumpectomy who presents with failure to thrive over past month. Pt lives alone with a [employer]ZZ[employer]OOK 5 times a week. Plan: Required work-up for chronic weight loss Problem List - Problems (1) Failure to thrive Assessment/Plan: Patient has significant weight loss since previous hospitalization July 2019 lost almost 18 pounds, currently under evaluation for unintentional weight loss ruling out tuberculosis, nutrition consult follow-up prealbumin Problems reviewed: Yes Code(s): [id number] - Qualifiers: Failure to thrive age range: in adult Qualified Code(s): R62.7 - Adult failure to thrive (2) Atrial fibrillation Assessment/Plan: Rate controlled continue Pradaxa Problems reviewed: Yes (3) HTN Assessment/Plan: Well-controlled continue current management Problems reviewed: Yes (4) Pneumonia Assessment/Plan: Continue ceftriaxone, follow-up sputum culture and AFB smear Code(s): J18.9 - PNEUMONIA, UNSPECIFIED ORGANISM (5) COPD (chronic obstructive pulmonary disease) Assessment/Plan: Continue Spiriva pulmonary recommendations Problems reviewed: Yes Code(s): J44.9 - CHRONIC OBSTRUCTIVE PULMONARY DISEASE, UNSPECIFIED
[2019-11-02] MEDS ORDERED: DEXTROSE 5%-WATER - 50 ML IVPB ONE (09:13)
[2019-11-02] MEDS ORDERED: cefTRIAXone SODIUM 1 GM VIAL ONE (09:13)
[2019-11-02 09:21] LABS: BLOOD UREA NITROGEN 9.9 mg/dL (7-18); CREATININE 0.5 mg/dL (0.55-1.3); POTASSIUM 3.4 mmol/L (3.5-5.1)
[2019-11-02] MEDS: CARVEDILOL 3.125 MG TABLET (FP) PO SCH ×2 (09:46→22:34)
[2019-11-02] MEDS: DIGOXIN 0.125 MG TABLET (FP) PO SCH (09:46)
[2019-11-02] MEDS: CEFTRIAXONE 1 GM in DEXTROSE 5%-WATER - 50 ML IVPB SCH (09:46)
[2019-11-02] MEDS: PANTOPRAZOLE 40 MG TABLET (FP) PO SCH (09:47)
[2019-11-02] MEDS: DABIGATRAN ETEXILATE MESYLATE 75 MG CAPSULE PO SCH ×2 (09:47→22:34)
[2019-11-02] MEDS: TIOTROPIUM BROMIDE 2.5 MCG (SPIRIVA) RESPIMAT INHALER IH SCH (09:54)
[2019-11-02] MEDS ORDERED: POTASSIUM CHLORIDE TABS 20 MEQ TABLET.ER (FP) PO ONE (10:30)
--- NOTE | 2019-11-02 10:51 | PN ---
Progress Note, Physician History of Present Illness: PULMONARY ALERT,FEELING BETTER,-RESP DISTRESS,MILD COUGH - Current Medication List Current Medications: Active Medications Acetaminophen (Tylenol -) 650 mg PO Q6H PRN PRN Reason: PAIN LEVEL 6-10 Benzocaine/Menthol (Cepacol Lozenge -) 1 each MM PRN PRN PRN Reason: SORE THROAT Last Admin: 10/31/19 04:39 Dose: 1 each Carvedilol (Coreg -) 3.125 mg PO BID [facility] Last Admin: 11/02/19 09:46 Dose: 3.125 mg Dabigatran (Pradaxa -) 75 mg PO BID [facility] Last Admin: 11/02/19 09:47 Dose: 75 mg Digoxin (Lanoxin -) 0.125 mg PO DAILY [facility] Last Admin: 11/02/19 09:46 Dose: 0.125 mg Sodium Chloride (Normal Saline -) 1,000 mls @ 42 mls/hr IV ASDIR [facility] Last Admin: 11/01/19 21:38 Dose: 42 mls/hr Ceftriaxone Sodium 1 gm/ (Dextrose) 50 mls @ 100 mls/hr IVPB DAILY [facility]; Protocol Last Admin: 11/02/19 09:46 Dose: 100 mls/hr Mirtazapine (Remeron -) 15 mg PO HS [facility] Last Admin: 11/01/19 21:38 Dose: 15 mg Pantoprazole Sodium (Protonix -) 40 mg PO DAILY [facility] Last Admin: 11/02/19 09:47 Dose: 40 mg Tiotropium [place] (Spiriva Respimat) 2 puff IH DAILY [facility] Last Admin: 11/02/19 09:54 Dose: 2 puff - Objective Vital Signs: Vital Signs Temperature 98 F 11/02/19 09:00 Pulse Rate 90 11/02/19 09:46 Respiratory Rate 18 11/02/19 09:00 Blood Pressure 108/60 11/02/19 09:00 O2 Sat by Pulse Oximetry (%) 97 11/01/19 21:00 Constitutional: Yes: Well Nourished, Calm, Thin Eyes: Yes: WNL HENT: Yes: WNL Neck: Yes: WNL Cardiovascular: Yes: Pulse Irregular, S1, S2 Respiratory: Yes: Diminished Gastrointestinal: Yes: Normal Bowel Sounds, Soft Extremities: Yes: WNL Edema: No Labs: CBC, BMP 11/02/19 08:40 11/02/19 08:40 Problem List - Problems (1) Failure to thrive Code(s): BZX7469 - Qualifiers: Failure to thrive age range: in adult Qualified Code(s): R62.7 - Adult failure to thrive (3) Diastolic heart failure Code(s): I50.30 - UNSPECIFIED DIASTOLIC (CONGESTIVE) HEART FAILURE Qualifiers: Heart failure chronicity: chronic heart failure (4) Moderate to severe pulmonary hypertension Code(s): I27.20 - PULMONARY HYPERTENSION, UNSPECIFIED (6) Breast cancer Code(s): C50.919 - MALIGNANT NEOPLASM OF UNSP SITE OF UNSPECIFIED FEMALE BREAST Assessment/Plan IMP Failure to Thrive Pneumonia 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
[2019-11-02] MEDS: ACETAMINOPHEN 325 MG TABLET (FP) PO PRN ×2 (11:06→20:25)
--- NOTE | 2019-11-02 11:59 | PN ---
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 She refused chopped. Encourage supplements b/n meals.
--- NOTE | 2019-11-02 13:11 | PN ---
Progress Note (short form) - Note Progress Note: Hospitalist Medicine Without dysphagia today, has been tolerating PO. C/o pain RUE, R shoulder Vitals 11/02/19 11/02/19 09:00 09:46 Temperature 98 F Pulse Rate 90 Respiratory 18 Rate Blood Pressure 108/60 Physical Exam general: resting in bed, in NAD. cachectic HEENT: NCAT, PERRLA neck: supple cardio: S1, S2 RRR. no r/m/g pulm: +few rhonchi. 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 2-12 grossly intact Laboratory Tests 11/02/19 11/02/19 08:40 08:40 WBC 5.9 Hgb 11.9 Hct 36.2 Plt Count 274 Sodium 136 Potassium 3.4 L Chloride 101 Carbon Dioxide 30 Anion Gap 5 L BUN 9.9 Creatinine 0.5 L Est GFR (CKD-EPI)AfAm 101.57 Calcium 8.0 L 10/31/19 10/31/19 01:50 20:05 Digoxin 0.51 L TB Test (QFT) Pending Microbiology 10/30/19 20:10 Urine - Urine Clean Catch Urine Culture - Final Escherichia Coli 10/30/19 00:15 Sputum - Expectorated Gram Stain - Final 10/30/19 00:15 Sputum - Expectorated Sputum Culture - Final NORMAL RESPIRATORY DAMI 11/01/19 12:10 Blood - Peripheral Venous Blood Culture - Preliminary NO GROWTH OBTAINED AFTER 24 HOURS, INCUBATION TO CONTINUE FOR 4 DAYS. 11/01/19 12:10 Blood - Peripheral Venous Blood Culture - Preliminary NO GROWTH OBTAINED AFTER 24 HOURS, INCUBATION TO CONTINUE FOR 4 DAYS. Imaging 10/30/19: CXR: since previous (07/2019), progressive congestive changes with upper lobe infiltrates and some pleural fluid with atelectasis at the right base. there is a large heart, sclerotic knob. prominent david, and fluid in the horizontal fissure. 10/30/19: C-spine CT: no fracture. multilevel degenerative joint dz . partially imaged pulm apices again demonstrate chronic pleural thickening and thickened interstitial changes suggestive of COPD. 10/30/19: Head CT: no CT evidence of acute intracranial path. mild periventricular and subcortical chronic microvascular ischemic chanes are seen. no def interval change from previous 07/07/2019. chronic paranasal sinus disease again noted. 10/30/19: modified barium swallow: normal swallowing study. trial of soft, chopped diet and thin liquid, ensure, magic cup, ensure pudding. 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 #Progressive UL infiltrates possible 2/2 CAP vs. TB #hx COPD, chronic bronchitis -keep on airborne isolation until AFBx3 negative and quantiferon negative -thus far, AFB (-) x 1, 2nd sent -quant pending -c/w ceftriaxone (10/31). zithro d/c as would partially tx mycobacterium -c/w NC 02, taper to sat > 90% -IS, spiriva, nebs PRN -pulm: Dr. Christiansen #Progressive dysphagia -tolerating PO, clear MBS -GI recommending barium esophagram when cleared by pulm -asp precautions -on protonix -GI: Dr. Armstrong #UTI -on ceftriaxone (10/31) -ucx: E.coli (>100,000) puentes-sensitive #Afib on Xarelto -dose adjusted according to weight -no signs of bleeding -rate controlled w/ Coreg, hold dig per cardio -cardio: Dr. Jules #HTN -c/t hold lasix -c/w coreg #HFpEF -not in exacerbation -Cont. BB, , hold Lasix #F/E/N gentle IVF; NS 42 cc/hr continue to follow lytes soft diet, w/ supplements (magic cup, ensure, ensure pudding) #PPX DVT: on xarelto GI: on protonix #Dispo cont'd monitoring on tele for barium esophagram when cleared by pulm
[2019-11-02] MEDS ORDERED: ALBUTEROL SO4 0.083% IH SOL 2.5 MG/3 ML VIAL.NEB. NEB PRN (13:19)
--- NOTE | 2019-11-02 17:21 | CON.CARD ---
Consult Consult Specialty:: cardiology Reason for Consultation:: SOB; subtherapeutic digoxin - History of Present Illness Chief Complaint: Pt A&Ox3; pt feels weak. Denies chest pain or dyspnea. History of Present Illness: The patient is an 84 year old white female, with a significant past medical history of HTN, Pulmonary HTN, COPD (bronchiectasis; not on home O2), diastolic CHF, Afib (on Coreg, digoxin, ; Pradaxa), Breast CA (s/p lumpectomy), Colitis, Diverticulitis, Chronic UTIs, and Insomnia, who presents to the emergency department with progressively worsening shortness of breath, weakness, and dysphagia. As per patient, over the past month and a half she has been experiencing increasing dysphagia with solids, nausea, shortness of breath, and productive cough. Aid at bedside notes that she has been requiring more assistance lately. Patient has not been eating much and notes 2 recent falls. Patient was advised by her PCP to report to the ED for further evaluation. Pt is concerned she has lost so much weight in the past year. She denies recent fevers, chills, headache or dizziness. She denies recent vomiting, diarrhea or constipation. She denies recent dysuria, frequency, urgency or hematuria. She denies recent chest pain or palpitations. Allergies: Meperidine HCl, Lactose Past surgical history: Appendectomy, cholecystectomy. Social history: Nonsmoker. Denies EtOH use and recreational drug use. Primary Care Physician: Dr. Haines Cement Gun Operator: Dr. Jules; ?Dr. Egan - History Source History Provided By: Patient, Medical Record Limitations to Obtaining History: No Limitations - Past Medical History Cardio/Vascular: Yes: AFIB, CHF (diastolic ), HTN, Murmur, Pulmonary Hypertension Pulmonary: Yes: Other Gastrointestinal: Yes: GERD Renal/: No: Renal Failure Reproductive: Yes: Postmenopausal ...: No Heme/Onc: No: Anemia Psych: Yes: Anxiety - Past Surgical History Past Surgical History: Yes: Appendectomy, Cholecystectomy - Alcohol/Substance Use Hx Alcohol Use: Yes (wine occassionally) History of Substance Use: reports: None - Smoking History Smoking history: Former smoker Have you smoked in the past 12 months: No If you are a former smoker, when did you quit?: 40 years ago - Social History ADL: Independent 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 History of Recent Travel: No Home Medications - Allergies Allergies/Adverse Reactions: Allergies Allergy/AdvReac Type Severity Reaction Status Date / Time meperidine HCl [From Demerol] AdvReac Intermediate Vomiting Verified 07/07/19 03 :29 lactose-intolerant AdvReac Uncoded 07/07/19 03:29 - Home Medications Home Medications: Ambulatory Orders Carvedilol [Coreg -] 3.125 mg PO BID 07/07/19 Dabigatran Etexilate Mesylate [Pradaxa -] 150 mg PO BID 07/07/19 Fluticasone Prop 0.05% Nasal [Flonase -] 1 - 2 spray NS DAILY PRN 07/07/19 Umeclidinium [place] [Incruse Ellipta] 62.5 mcg IH DAILY 07/07/19 Digoxin [Lanoxin -] 0.125 mg PO DAILY 30 Days #30 tablet 07/10/19 Furosemide 20 mg PO DAILY 10/30/19 Mirtazapine 15 mg PO DAILY 10/30/19 Family Medical History Family History: Denies Review of Systems - Review of Systems Constitutional: reports: Weakness Eyes: reports: No Symptoms HENT: reports: No Symptoms, Nasal Congestion (cough) Neck: reports: No Symptoms Cardiovascular: reports: No Symptoms Respiratory: reports: SOB Gastrointestinal: reports: No Symptoms Genitourinary: reports: No Symptoms Breasts: reports: No Symptoms Reported Musculoskeletal: reports: Muscle Weakness Integumentary: reports: No Symptoms Neurological: reports: Weakness Endocrine: reports: No Symptoms Hematology/Lymphatic: reports: No Symptoms Psychiatric: reports: No Symptoms - Risk Factors Known Risk Factors: Yes: Age, Physical Inactivity, Other (diastolic CHF; AF) Vital Signs: Vital Signs Temperature 98.8 F 11/02/19 14:00 Pulse Rate 85 11/02/19 14:00 Respiratory Rate 18 11/02/19 14:00 Blood Pressure 109/50 L 11/02/19 14:00 O2 Sat by Pulse Oximetry (%) 97 11/02/19 09:00 Constitutional: Yes: Calm, Cachectic Eyes: Yes: WNL HENT: Yes: WNL Neck: Yes: WNL Gastrointestinal: Yes: Soft Renal/: Yes: WNL Cardiovascular: Yes: Regular Rate and Rhythm JVD: No Carotid Bruit: No PMI: Non-Displaced Heart Sounds: Yes: S1, S2 Murmur: Yes: Systolic Murmur, Grade 2 Musculoskeletal: Yes: Muscle Weakness Extremities: Yes: Cool Edema: No Peripheral Pulses WNL: Yes Integumentary: Yes: WNL Neurological: Yes: Alert, Oriented, Weakness Psychiatric: Yes: WNL, Alert, Oriented - Other Data Labs, Other Data: CBC, BMP 11/02/19 08:40 11/02/19 08:40 Abnormal Lab Results 11/03/19 11/03/19 05:25 05:25 RBC 3.26 L MCV 99.6 H RDW 16.9 H Monocytes % 13.6 H Anion Gap 6 L Creatinine 0.5 L Calcium 7.7 L Phosphorus 2.4 L Magnesium 1.7 L Echo: Report Reviewed Ejection Fraction %: LVEF > or = 40 % Imaging - Results Chest X-ray: Image Reviewed EKG: Image Reviewed Problem List - Problems (1) Acute on chronic diastolic CHF (congestive heart failure) Assessment/Plan: On carvedilol. F/u BUN/Cr, electrolytes, dialy weight, Is and Os. Code(s): I50.33 - ACUTE ON CHRONIC DIASTOLIC (CONGESTIVE) HEART FAILURE (2) COPD (chronic obstructive pulmonary disease) Assessment/Plan: CT: bronchiectasis. Code(s): J44.9 - CHRONIC OBSTRUCTIVE PULMONARY DISEASE, UNSPECIFIED (3) Dysphagia Code(s): R13.10 - DYSPHAGIA, UNSPECIFIED Qualifiers: Dysphagia type: unspecified Qualified Code(s): R13.10 - Dysphagia, unspecified (4) Failure to thrive Code(s): IIW1209 - Qualifiers: Failure to thrive age range: in adult Qualified Code(s): R62.7 - Adult failure to thrive (5) Requires assistance with activities of daily living (ADL) Code(s): Z74.1 - NEED FOR ASSISTANCE WITH PERSONAL CARE (6) Atrial fibrillation Assessment/Plan: Digoxin level 0.5: though low, levels between 0.4-0.8 are consdered therapeutic ; higher doses may not increase efficacy but do increase risk for side-effects. ECHO: normal LVEF. Discussed with pt: will discontinue digoxin (hypokalemia, with attendant increased risk of side-effects; normal LVEF) and continue carvedilol for HR and BP control. On Pradaxa for anticoagulation. F/u EKG, telemetry. TSH WNL (11/19). F/u K+ and magnesium level. (7) Pulmonary HTN Assessment/Plan: moderately severe by ECHO. Code(s): I27.20 - PULMONARY HYPERTENSION, UNSPECIFIED (8) Hypokalemia Assessment/Plan: replete, and keep 4.0-4.5 Code(s): E87.6 - HYPOKALEMIA (9) Hypomagnesemia Assessment/Plan: replete, and keep level 2.0-2.4 Code(s): E83.42 - HYPOMAGNESEMIA
[2019-11-02] MEDS ORDERED: BENZOCAINE 28 GM HEMORRHOIDAL OINTMENT PR PRN (20:26)
[2019-11-02] MEDS ORDERED: PT OWN MED DRAWER 7, Y5N ONE (21:38)
[2019-11-02] MEDS: MIRTAZAPINE 15 MG TABLET (FP) PO SCH (22:34)
[2019-11-02] MEDS: SODIUM CHLORIDE 1,000 ML IV SCH (23:07)
[2019-11-02 23:54] LABS: MAGNESIUM 1.6 mg/dL (1.8-2.4); N-TERMINAL BNP 3952.9 pg/ml (5-450)
[2019-11-03 07:37] LABS: BASO % 0.4 % (0-2.0); EOS % 4.4 % (0-4.5); HEMATOCRIT 32.5 % (32.4-45.2); HEMOGLOBIN 10.8 GM/dL (10.7-15.3); LYMPH % 9.4 % (8-40); MCH 33.2 pg (25.7-33.7); MCHC 33.3 g/dl (32.0-36.0); MEAN CELL VOLUME 99.6 fl (80-96); MEAN PLT VOLUME 7.6 fl (7.5-11.1); MONO % 13.6 % (3.8-10.2); NEUT % 72.2 % (42.8-82.8); PLATELET COUNT 246 K/MM3 (134-434); RBC 3.26 M/mm3 (3.60-5.2); RDW 16.9 % (11.6-15.6); WHITE BLOOD COUNT 4.9 K/mm3 (4.0-10.0)
--- NOTE | 2019-11-03 08:08 | PN ---
Teaching Attending Note Name of Resident: Kisha Morales ATTENDING PHYSICIAN STATEMENT I saw and evaluated the patient. I reviewed the resident's note and discussed the case with the resident. I agree with the resident's findings and plan as documented. SUBJECTIVE: Patient feels improved still complaint of cough and shortness of breath appetite is improving OBJECTIVE: Vital Signs Temperature 97.8 F 11/03/19 06:00 Pulse Rate 74 11/03/19 06:00 Respiratory Rate 18 11/03/19 06:00 Blood Pressure 133/65 11/03/19 06:00 O2 Sat by Pulse Oximetry (%) 93 L 11/02/19 21:00 General: Elderly woman, comfortable, not in distress HEENT; mucous membranes moist, no anemia, no jaundice, PERRLA, no nystagmus Neck: No JVD, supple, no bruit, thyroid palpably normal, normal carotid pulsations. Chest: Nontender, bilateral basal rales. CVS: S1-S2 regularno murmur/gallop/rub Abdomen: Nondistended, soft, bowel sounds present. Extremities: No edema., No calf tenderness, pulses present POOL NURSE: AO X3 , no gross motor sensory deficit CBC, BMP 11/03/19 05:25 11/03/19 05:25 Active Medications Benzocaine/Menthol (Cepacol Lozenge -) 1 each MM PRN PRN PRN Reason: SORE THROAT Last Admin: 10/31/19 04:39 Dose: 1 each Carvedilol (Coreg -) 3.125 mg PO BID [facility] Last Admin: 11/01/19 21:38 Dose: 3.125 mg Dabigatran (Pradaxa -) 75 mg PO BID [facility] Last Admin: 11/01/19 21:38 Dose: 75 mg Digoxin (Lanoxin -) 0.125 mg PO DAILY [facility] Last Admin: 11/01/19 09:47 Dose: 0.125 mg Sodium Chloride (Normal Saline -) 1,000 mls @ 42 mls/hr IV ASDIR [facility] Last Admin: 11/01/19 21:38 Dose: 42 mls/hr Ceftriaxone Sodium 1 gm/ (Dextrose) 50 mls @ 100 mls/hr IVPB DAILY [facility]; Protocol Last Admin: 11/01/19 09:48 Dose: 100 mls/hr Mirtazapine (Remeron -) 15 mg PO HS [facility] Last Admin: 11/01/19 21:38 Dose: 15 mg Pantoprazole Sodium (Protonix -) 40 mg PO DAILY [facility] Last Admin: 11/01/19 09:47 Dose: 40 mg Tiotropium [place] (Spiriva Respimat) 2 puff IH DAILY [facility] Last Admin: 11/01/19 11:24 Dose: 2 puff ASSESSMENT AND PLAN: 84 year old female with PMH of HTN, COPD (no home O2), CHF , pulmonary HTN, Afib , breast CA s/p lumpectomy who presents with failure to thrive over past month. 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 Impression: Patient is work-up for unintentional weight loss including age- appropriate and risks specific malignancy work-up and rule out tuberculosis. Problem List - Problems (1) Failure to thrive Assessment/Plan: Patient has significant weight loss since previous hospitalization July 2019 lost almost 18 pounds, currently under evaluation for unintentional weight loss ruling out tuberculosis, nutrition consult follow-up prealbumin Code(s): [id number] - Qualifiers: Failure to thrive age range: in adult Qualified Code(s): R62.7 - Adult failure to thrive (2) Atrial fibrillation Assessment/Plan: Rate controlled continue Pradaxa, digoxin is therapeutic (3) HTN Assessment/Plan: Well-controlled continue current management (4) Pneumonia Assessment/Plan: Continue ceftriaxone, follow-up sputum culture and AFB smear Code(s): J18.9 - PNEUMONIA, UNSPECIFIED ORGANISM (5) COPD (chronic obstructive pulmonary disease) Assessment/Plan: Continue Spiriva pulmonary recommendations Code(s): J44.9 - CHRONIC OBSTRUCTIVE PULMONARY DISEASE, UNSPECIFIED
[2019-11-03 08:21] LABS: BLOOD UREA NITROGEN 9.3 mg/dL (7-18); CALCIUM 7.7 mg/dL (8.5-10.1); CREATININE 0.5 mg/dL (0.55-1.3); MAGNESIUM 1.7 mg/dL (1.8-2.4); PHOSPHOROUS 2.4 mg/dL (2.5-4.9); POTASSIUM 3.9 mmol/L (3.5-5.1)
[2019-11-03] MEDS ORDERED: MAGNESIUM OXIDE 400 MG TABLET (FP) PO ONE (08:23)
[2019-11-03] MEDS ORDERED: PT OWN MED DRAWER 7, Y5N ONE ×3 (09:48→20:28)
[2019-11-03] MEDS ORDERED: cefTRIAXone SODIUM 1 GM VIAL ONE (09:48)
[2019-11-03] MEDS ORDERED: DEXTROSE 5%-WATER - 50 ML IVPB ONE (09:48)
[2019-11-03] MEDS: DABIGATRAN ETEXILATE MESYLATE 75 MG CAPSULE PO SCH ×2 (10:19→21:27)
[2019-11-03] MEDS: CEFTRIAXONE 1 GM in DEXTROSE 5%-WATER - 50 ML IVPB SCH (10:19)
[2019-11-03] MEDS: CARVEDILOL 3.125 MG TABLET (FP) PO SCH ×2 (10:19→21:27)
[2019-11-03] MEDS: PANTOPRAZOLE 40 MG TABLET (FP) PO SCH (10:19)
[2019-11-03] MEDS: TIOTROPIUM BROMIDE 2.5 MCG (SPIRIVA) RESPIMAT INHALER IH SCH (10:20)
--- NOTE | 2019-11-03 10:36 | PN ---
Progress Note, Physician History of Present Illness: pulmonary alert,tired,+ cough non-productive - Current Medication List Current Medications: Active Medications Acetaminophen (Tylenol -) 650 mg PO Q6H PRN PRN Reason: PAIN LEVEL 6-10 Last Admin: 11/02/19 20:25 Dose: 650 mg Albuterol Sulfate (Ventolin 0.083% Nebulizer Soln -) 1 amp NEB Q4H PRN PRN Reason: SHORT OF BREATH/WHEEZING Benzocaine (Americaine Ointment -) 1 applic SD PRN PRN PRN Reason: HEMORRHOIDS Last Admin: 11/02/19 22:34 Dose: 1 applic Benzocaine/Menthol (Cepacol Lozenge -) 1 each MM PRN PRN PRN Reason: SORE THROAT Last Admin: 10/31/19 04:39 Dose: 1 each Carvedilol (Coreg -) 3.125 mg PO BID [facility] Last Admin: 11/03/19 10:19 Dose: 3.125 mg Dabigatran (Pradaxa -) 75 mg PO BID [facility] Last Admin: 11/03/19 10:19 Dose: 75 mg Sodium Chloride (Normal Saline -) 1,000 mls @ 42 mls/hr IV ASDIR [facility] Last Admin: 11/02/19 23:07 Dose: Not Given Ceftriaxone Sodium 1 gm/ (Dextrose) 50 mls @ 100 mls/hr IVPB DAILY [facility]; Protocol Last Admin: 11/03/19 10:19 Dose: 100 mls/hr Mirtazapine (Remeron -) 15 mg PO HS [facility] Last Admin: 11/02/19 22:34 Dose: 15 mg Pantoprazole Sodium (Protonix -) 40 mg PO DAILY [facility] Last Admin: 11/03/19 10:19 Dose: 40 mg Tiotropium [place] (Spiriva Respimat) 2 puff IH DAILY [facility] Last Admin: 11/03/19 10:20 Dose: 2 puff - Objective Vital Signs: Vital Signs Temperature 97.8 F 11/03/19 06:00 Pulse Rate 74 11/03/19 06:00 Respiratory Rate 18 11/03/19 06:00 Blood Pressure 133/65 11/03/19 06:00 O2 Sat by Pulse Oximetry (%) 93 L 11/02/19 21:00 Constitutional: Yes: Calm, Thin Eyes: Yes: WNL HENT: Yes: WNL Neck: Yes: WNL Cardiovascular: Yes: Pulse Irregular, S1, S2 Respiratory: Yes: Diminished Gastrointestinal: Yes: Normal Bowel Sounds, Soft Extremities: Yes: WNL Edema: No Labs: CBC, BMP 11/03/19 05:25 11/03/19 05:25 Problem List - Problems (1) Failure to thrive Code(s): [id number] - Qualifiers: Failure to thrive age range: in adult Qualified Code(s): R62.7 - Adult failure to thrive (3) Diastolic heart failure Code(s): I50.30 - UNSPECIFIED DIASTOLIC (CONGESTIVE) HEART FAILURE Qualifiers: Heart failure chronicity: chronic heart failure (4) Moderate to severe pulmonary hypertension Code(s): I27.20 - PULMONARY HYPERTENSION, UNSPECIFIED (6) Breast cancer Code(s): C50.919 - MALIGNANT NEOPLASM OF UNSP SITE OF UNSPECIFIED FEMALE BREAST Assessment/Plan IMP Failure to Thrive Pneumonia 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
[2019-11-03] MEDS ORDERED: ONDANSETRON 4 MG/2 ML VIAL IVPUSH PRN (11:30)
--- NOTE | 2019-11-03 11:47 | PN ---
Progress Note (short form) - Note Progress Note: Hospitalist Medicine Endorses decreased appetite, but has been tolerating diet Vitals 11/03/19 06:00 Temperature 97.8 F Pulse Rate 74 Respiratory 18 Rate Blood Pressure 133/65 Physical Exam general: resting in bed, in NAD. HEENT: NCAT, PERRLA neck: supple cardio: S1, S2 RRR. no r/m/g pulm: +scattered rhonchi. 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 2-12 grossly intact Laboratory Tests 11/03/19 11/03/19 05:25 05:25 WBC 4.9 Hgb 10.8 Hct 32.5 Plt Count 246 Sodium 136 Potassium 3.9 Chloride 104 Carbon Dioxide 27 Anion Gap 6 L BUN 9.3 Creatinine 0.5 L Calcium 7.7 L Phosphorus 2.4 L Magnesium 1.7 L Microbiology 10/30/19 20:10 Urine - Urine Clean Catch Urine Culture - Final Escherichia Coli 10/30/19 00:15 Sputum - Expectorated Gram Stain - Final 10/30/19 00:15 Sputum - Expectorated Sputum Culture - Final NORMAL RESPIRATORY DAMI 11/01/19 12:10 Blood - Peripheral Venous Blood Culture - Preliminary NO GROWTH OBTAINED AFTER 24 HOURS, INCUBATION TO CONTINUE FOR 4 DAYS. 11/01/19 12:10 Blood - Peripheral Venous Blood Culture - Preliminary NO GROWTH OBTAINED AFTER 24 HOURS, INCUBATION TO CONTINUE FOR 4 DAYS. Imaging 10/30/19: CXR: since previous (07/2019), progressive congestive changes with upper lobe infiltrates and some pleural fluid with atelectasis at the right base. there is a large heart, sclerotic knob. prominent david, and fluid in the horizontal fissure. 10/30/19: C-spine CT: no fracture. multilevel degenerative joint dz . partially imaged pulm apices again demonstrate chronic pleural thickening and thickened interstitial changes suggestive of COPD. 10/30/19: Head CT: no CT evidence of acute intracranial path. mild periventricular and subcortical chronic microvascular ischemic chanes are seen. no def interval change from previous 07/07/2019. chronic paranasal sinus disease again noted. 10/30/19: modified barium swallow: normal swallowing study. trial of soft, chopped diet and thin liquid, ensure, magic cup, ensure pudding. 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 #Progressive UL infiltrates possible 2/2 CAP vs. TB #hx COPD, chronic bronchitis -keep on airborne isolation until AFBx3 negative and quantiferon negative -thus far, AFB (-) x 1, 2nd sent. will send 3rd -quant (-) -c/w ceftriaxone (10/31). zithro d/c as would partially tx mycobacterium -c/w NC 02, taper to sat > 90% -IS, spiriva, nebs PRN -pulm: Dr. Christiansen #Progressive dysphagia -tolerating PO, clear MBS -GI recommending barium esophagram when cleared by pulm -asp precautions -on protonix -GI: Dr. Armstrong #UTI -on ceftriaxone (10/31) -ucx: E.coli (>100,000) puentes-sensitive #Afib on Xarelto -dose adjusted according to weight -no signs of bleeding -rate controlled w/ Coreg, hold dig per cardio -cardio: Dr. Jules #HTN -c/t hold lasix -c/w coreg #HFpEF -not in exacerbation -Cont. BB, , hold Lasix #F/E/N gentle IVF; NS 42 cc/hr continue to follow lytes soft diet, w/ supplements (magic cup, ensure, ensure pudding) #PPX DVT: on xarelto GI: on protonix #Dispo cont'd monitoring on tele for barium esophagram when cleared by pulm on d/c will go to SNF
--- NOTE | 2019-11-03 12:46 | PN ---
Progress Note, NUTRITIONAL CHEMIST - Note Progress Note: Selected Entries 11/02/19 11/02/19 11/02/19 05:56 09:00 14:00 Breakfast 25% Lunch 25% Supper Temperature 98.6 F 98 F 98.8 F 11/02/19 11/02/19 11/03/19 18:00 20:50 06:00 Breakfast Lunch Supper 25% Temperature 97.8 F 97.9 F 97.8 F 11/03/19 11/03/19 09:00 10:47 Breakfast 50% Lunch Supper Temperature 98.0 F Laboratory Tests 11/03/19 05:25 WBC 4.9 on soft diet/thin liquids
--- NOTE | 2019-11-03 15:02 | PATH ---
Surgical Pathology Report Patient Name: CHEIKHApril [facility]. Rec. #: [id number] /Age/Gender: 1935 (Age: 84) / F Account: [id number] Location: 4 W TELEMETRY U Taken: 11/02/2019 Received: 11/02/2019 Reported: 11/03/2019 Physicians: Sarah Ruth M.D. Specimen(s) Received PERIPHERAL BLOOD IN FOUR GREEN TOP TUBES Clinical History Leukopenia and thrombocytopenia, rule out MDS Final Diagnosis FLOW CYTOMETRY performed and interpreted at [place], [place] ([id number]) shows the following: INTERPRETATION: In the sample analyzed, there is no evidence of B or T-cell proliferative disorders or increased blasts. Additional Tests: Cytogenetics, FISH . PHENOTYPE: In the sample analyzed there is a mixed population of granulocytes, monocytes, and lymphoid cells. CD34+ myeloblasts are 0.1%. Granulocytes are 86% of total cells. Monocytes are 7% of total cells. There is no overt abnormal myeloid antigen expression. The B-cells (0.1% of total) appear polytypic. The T-cells (2% of total) show no puentes T-cell antigenic deletion. See [facility] report ([id number]) for additional details. Electronically Signed Sandra Blount M.D. Addendum Reported: 11/06/2019 Addendum Diagnosis Myelodysplasia Fish Panel performed and interpreted at [place], [place] shows the following: INTERPRETATION: No evidence of deletion 5q or monosomy 5 is present. No evidence of deletion 7q or monosomy 7 is present. No evidence of trisomy 8 (+8) is present. No evidence of deletion 13q14.2 is present. No evidence of a rearrangement of 11q23. No evidence of a deletion of the p53 (17p13) locus. No evidence of deletion 20q12 is present. Comments: Correlation with pending cytogenetics ([id number]) is recommended. Seven multiplex probe stain procedures were performed. See [facility] report ([id number]) for additional details Sandra Blount M.D. Addendum Reported: 11/10/2019 Addendum Diagnosis CYTOGENETIC KARYOTYPE ANALYSIS performed and interpreted at [facility] ([id number]) shows the following: RESULTS: 46,XX[7] Limited Study INTERPRETATION: Normal Karyotype This unstimulated peripheral blood specimen produced only seven analyzable metaphase cells. Although chromosome morphology and band resolution are suboptimal, no consistent numerical or structural chromosome abnormalities were observed. A repeat sample or bone marrow aspirate, when clinically appropriate, may produce additional cytogenetic information and is recommended. This normal result does not rule out a neoplasm. Subtle rearrangements or the presence of an aberrant clone in a low proportion of cells cannot be ruled out. Correlation with other clinical and hematologic data is suggested. Analysis was performed on cells from an unstimulated tissue culture. See [facility] report for additional details. Sandra Blount M.D. Gross Description Received peripheral blood in four green top tubes. Sent to [facility] for analysis.
[2019-11-03] MEDS: MIRTAZAPINE 15 MG TABLET (FP) PO SCH (21:27)
[2019-11-03] MEDS: SODIUM CHLORIDE 1,000 ML IV SCH (23:00)
--- NOTE | 2019-11-04 03:04 | PN ---
Progress Note, Physician - Current Medication List Current Medications: Active Medications Acetaminophen (Tylenol -) 650 mg PO Q6H PRN PRN Reason: PAIN LEVEL 6-10 Last Admin: 11/02/19 20:25 Dose: 650 mg Albuterol Sulfate (Ventolin 0.083% Nebulizer Soln -) 1 amp NEB Q4H PRN PRN Reason: SHORT OF BREATH/WHEEZING Benzocaine (Americaine Ointment -) 1 applic [place] PRN PRN PRN Reason: HEMORRHOIDS Last Admin: 11/02/19 22:34 Dose: 1 applic Benzocaine/Menthol (Cepacol Lozenge -) 1 each MM PRN PRN PRN Reason: SORE THROAT Last Admin: 10/31/19 04:39 Dose: 1 each Carvedilol (Coreg -) 3.125 mg PO BID [facility] Last Admin: 11/03/19 21:27 Dose: 3.125 mg Dabigatran (Pradaxa -) 75 mg PO BID [facility] Last Admin: 11/03/19 21:27 Dose: 75 mg Sodium Chloride (Normal Saline -) 1,000 mls @ 42 mls/hr IV ASDIR [facility] Last Admin: 11/02/19 23:07 Dose: Not Given Ceftriaxone Sodium 1 gm/ (Dextrose) 50 mls @ 100 mls/hr IVPB DAILY [facility]; Protocol Last Admin: 11/03/19 10:19 Dose: 100 mls/hr Mirtazapine (Remeron -) 15 mg PO HS [facility] Last Admin: 11/03/19 21:27 Dose: 15 mg Ondansetron HCl (Zofran Injection) 4 mg IVPUSH Q6H PRN PRN Reason: NAUSEA Last Admin: 11/03/19 12:04 Dose: 4 mg Pantoprazole Sodium (Protonix -) 40 mg PO DAILY [facility] Last Admin: 11/03/19 10:19 Dose: 40 mg Tiotropium [place] (Spiriva Respimat) 2 puff IH DAILY [facility] Last Admin: 11/03/19 10:20 Dose: 2 puff - Objective Vital Signs: Vital Signs Temperature 98.7 F 11/03/19 22:00 Pulse Rate 74 11/03/19 22:00 Respiratory Rate 20 11/03/19 22:00 Blood Pressure 120/60 11/03/19 22:00 O2 Sat by Pulse Oximetry (%) 96 11/03/19 21:00 Labs: CBC, BMP 11/03/19 05:25 11/03/19 05:25 Problem List - Problems (1) Acute on chronic diastolic CHF (congestive heart failure) Assessment/Plan: On carvedilol. F/u BUN/Cr, electrolytes, dialy weight, Is and Os. Code(s): I50.33 - ACUTE ON CHRONIC DIASTOLIC (CONGESTIVE) HEART FAILURE (2) COPD (chronic obstructive pulmonary disease) Assessment/Plan: CT: bronchiectasis. moderately severe pulmonary HTN. Code(s): J44.9 - CHRONIC OBSTRUCTIVE PULMONARY DISEASE, UNSPECIFIED (3) Dysphagia Code(s): R13.10 - DYSPHAGIA, UNSPECIFIED Qualifiers: Dysphagia type: unspecified Qualified Code(s): R13.10 - Dysphagia, unspecified (4) Failure to thrive Code(s): SVI4934 - Qualifiers: Failure to thrive age range: in adult Qualified Code(s): R62.7 - Adult failure to thrive (5) Atrial fibrillation Assessment/Plan: continue carvedilol for HR and BP control. On Pradaxa for anticoagulation. F/u EKG, telemetry. TSH WNL (11/19). K and Mg low: replete. (6) Pulmonary HTN Assessment/Plan: moderately severe by ECHO. Bronchiectasis Code(s): I27.20 - PULMONARY HYPERTENSION, UNSPECIFIED (7) Hypokalemia Assessment/Plan: replete, and keep 4.0-4.5 Code(s): E87.6 - HYPOKALEMIA (8) Hypomagnesemia Assessment/Plan: replete, and keep level 2.0-2.4 Code(s): E83.42 - HYPOMAGNESEMIA (9) PTB (pulmonary tuberculosis) Assessment/Plan: on airborne isolation while PTB is being ruled out; 1st AFB negative. Code(s): A15.0 - TUBERCULOSIS OF LUNG (10) Weight loss Assessment/Plan: Pt has lost nearly 20 lbs in the past 4 months. She feels she has a better appetite today. [place] in progress. TB being ruled out. Code(s): R63.4 - ABNORMAL WEIGHT LOSS
[2019-11-04] MEDS: ACETAMINOPHEN 325 MG TABLET (FP) PO PRN ×2 (05:55→23:45)
[2019-11-04 06:42] LABS: BASO % 0.4 % (0-2.0); EOS % 3.8 % (0-4.5); HEMATOCRIT 34.3 % (32.4-45.2); HEMOGLOBIN 11.4 GM/dL (10.7-15.3); LYMPH % 9.5 % (8-40); MCH 33.2 pg (25.7-33.7); MCHC 33.1 g/dl (32.0-36.0); MEAN CELL VOLUME 100.3 fl (80-96); MEAN PLT VOLUME 7.9 fl (7.5-11.1); MONO % 13.4 % (3.8-10.2); NEUT % 72.9 % (42.8-82.8); PLATELET COUNT 281 K/MM3 (134-434); RBC 3.42 M/mm3 (3.60-5.2); RDW 16.8 % (11.6-15.6); WHITE BLOOD COUNT 6.2 K/mm3 (4.0-10.0)
[2019-11-04 07:15] LABS: BLOOD UREA NITROGEN 7.2 mg/dL (7-18); CREATININE 0.5 mg/dL (0.55-1.3); MAGNESIUM 1.8 mg/dL (1.8-2.4); PHOSPHOROUS 2.7 mg/dL (2.5-4.9); POTASSIUM 4.4 mmol/L (3.5-5.1)
[2019-11-04] MEDS ORDERED: PT OWN MED DRAWER 7, Y5N ONE ×3 (09:07→21:37)
[2019-11-04] MEDS ORDERED: DEXTROSE 5%-WATER - 50 ML IVPB ONE (09:07)
[2019-11-04] MEDS ORDERED: cefTRIAXone SODIUM 1 GM VIAL ONE (09:07)
[2019-11-04] MEDS: PANTOPRAZOLE 40 MG TABLET (FP) PO SCH (09:42)
[2019-11-04] MEDS: CEFTRIAXONE 1 GM in DEXTROSE 5%-WATER - 50 ML IVPB SCH (09:42)
[2019-11-04] MEDS: CARVEDILOL 3.125 MG TABLET (FP) PO SCH ×2 (09:42→22:01)
[2019-11-04] MEDS: DABIGATRAN ETEXILATE MESYLATE 75 MG CAPSULE PO SCH ×2 (09:43→22:01)
[2019-11-04] MEDS: TIOTROPIUM BROMIDE 2.5 MCG (SPIRIVA) RESPIMAT INHALER IH SCH (09:43)
--- NOTE | 2019-11-04 13:38 | PN ---
Progress Note (short form) - Note Progress Note: Resting in NAD. Malaise. Non-productive cough. No acute events overnight. Intake & Output 11/01/19 11/02/19 11/03/19 11/04/19 23:59 23:59 23:59 23:59 Intake Total 494 1272 1846 754 Output Total 500 Balance 494 1272 1846 254 Weight 82 lb Last Vital Signs Temp Pulse Resp BP Pulse Ox 98.2 F 87 20 107/52 L 96 11/04/19 10:00 11/04/19 10:00 11/04/19 10:00 11/04/19 10:00 11/04/19 09:00 Active Medications Acetaminophen (Tylenol -) 650 mg PO Q6H PRN PRN Reason: PAIN LEVEL 6-10 Last Admin: 11/04/19 05:55 Dose: 650 mg Albuterol Sulfate (Ventolin 0.083% Nebulizer Soln -) 1 amp NEB Q4H PRN PRN Reason: SHORT OF BREATH/WHEEZING Benzocaine (Americaine Ointment -) 1 applic [place] PRN PRN PRN Reason: HEMORRHOIDS Last Admin: 11/02/19 22:34 Dose: 1 applic Benzocaine/Menthol (Cepacol Lozenge -) 1 each MM PRN PRN PRN Reason: SORE THROAT Last Admin: 10/31/19 04:39 Dose: 1 each Carvedilol (Coreg -) 3.125 mg PO BID [facility] Last Admin: 11/04/19 09:42 Dose: 3.125 mg Dabigatran (Pradaxa -) 75 mg PO BID [facility] Last Admin: 11/04/19 09:43 Dose: 75 mg Sodium Chloride (Normal Saline -) 1,000 mls @ 42 mls/hr IV ASDIR [facility] Last Admin: 11/03/19 23:00 Dose: Not Given Ceftriaxone Sodium 1 gm/ (Dextrose) 50 mls @ 100 mls/hr IVPB DAILY [facility]; Protocol Last Admin: 11/04/19 09:42 Dose: 100 mls/hr Mirtazapine (Remeron -) 15 mg PO HS [facility] Last Admin: 11/03/19 21:27 Dose: 15 mg Ondansetron HCl (Zofran Injection) 4 mg IVPUSH Q6H PRN PRN Reason: NAUSEA Last Admin: 11/03/19 12:04 Dose: 4 mg Pantoprazole Sodium (Protonix -) 40 mg PO DAILY [facility] Last Admin: 11/04/19 09:42 Dose: 40 mg Tiotropium [place] (Spiriva Respimat) 2 puff IH DAILY [facility] Last Admin: 11/04/19 09:43 Dose: 2 puff Constitutional: Yes: NAD, Thin Eyes: Yes: WNL HENT: Yes: WNL Neck: Yes: WNL Cardiovascular: Yes: Pulse Irregular, S1, S2 Respiratory: Yes: Diminished Gastrointestinal: Yes: Normal Bowel Sounds, Soft Extremities: Yes: WNL Edema: No Labs: Laboratory Results - last 24 hr 11/04/19 11/04/19 05:25 05:25 WBC 6.2 RBC 3.42 L Hgb 11.4 Hct 34.3 MCV 100.3 H MCH 33.2 MCHC 33.1 RDW 16.8 H Plt Count 281 MPV 7.9 Absolute Neuts (auto) 4.5 Neutrophils % 72.9 Lymphocytes % 9.5 Monocytes % 13.4 H Eosinophils % 3.8 Basophils % 0.4 Nucleated RBC % 0 Sodium 133 L Potassium 4.4 Chloride 101 Carbon Dioxide 26 Anion Gap 7 L BUN 7.2 Creatinine 0.5 L Est GFR (CKD-EPI)AfAm 101.57 Est GFR (CKD-EPI)NonAf 87.64 Random Glucose 83 Calcium 8.0 L Phosphorus 2.7 Magnesium 1.8 Problem List - Problems (1) Failure to thrive Code(s): NHZ6700 - Qualifiers: Failure to thrive age range: in adult Qualified Code(s): R62.7 - Adult failure to thrive (3) Diastolic heart failure Code(s): I50.30 - UNSPECIFIED DIASTOLIC (CONGESTIVE) HEART FAILURE Qualifiers: Heart failure chronicity: chronic heart failure (4) Moderate to severe pulmonary hypertension Code(s): I27.20 - PULMONARY HYPERTENSION, UNSPECIFIED (6) Breast cancer Code(s): C50.919 - MALIGNANT NEOPLASM OF UNSP SITE OF UNSPECIFIED FEMALE BREAST Assessment/Plan Failure to Thrive Pneumonia 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
--- NOTE | 2019-11-04 18:23 | PN ---
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 AFB x1 negative , awaiting further cultures and quantiferon pending. Patient's breathing stable. Cachectic, frail. Physical Exam general: resting in bed, in NAD. HEENT: NCAT, PERRLA neck: supple cardio: S1, S2 RRR. no r/m/g pulm: +scattered rhonchi. 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 Vital Signs - 24 hr 11/03/19 11/03/19 11/04/19 21:00 22:00 06:00 Temperature 98.7 F 98.6 F Pulse Rate 74 81 Respiratory 20 20 20 Rate Blood Pressure 120/60 133/72 O2 Sat by Pulse 96 Oximetry (%) 11/04/19 11/04/19 11/04/19 09:00 10:00 14:34 Temperature 98.2 F 98.3 F Pulse Rate 87 71 Respiratory 20 20 20 Rate Blood Pressure 107/52 L 126/52 L O2 Sat by Pulse 96 Oximetry (%) Laboratory Results - last 24 hr 11/04/19 11/04/19 05:25 05:25 WBC 6.2 RBC 3.42 L Hgb 11.4 Hct 34.3 MCV 100.3 H MCH 33.2 MCHC 33.1 RDW 16.8 H Plt Count 281 MPV 7.9 Absolute Neuts (auto) 4.5 Neutrophils % 72.9 Lymphocytes % 9.5 Monocytes % 13.4 H Eosinophils % 3.8 Basophils % 0.4 Nucleated RBC % 0 Sodium 133 L Potassium 4.4 Chloride 101 Carbon Dioxide 26 Anion Gap 7 L BUN 7.2 Creatinine 0.5 L Est GFR (CKD-EPI)AfAm 101.57 Est GFR (CKD-EPI)NonAf 87.64 Random Glucose 83 Calcium 8.0 L Phosphorus 2.7 Magnesium 1.8 Current Medications Generic Name Dose Route Start Last Admin Trade Name Freq PRN Reason Stop Dose Admin Acetaminophen 650 mg 11/02/19 10:31 11/04/19 05:55 Tylenol - PO 650 mg Q6H PRN Administration PAIN LEVEL 6-10 Albuterol Sulfate 1 amp 11/02/19 13:19 Ventolin 0.083% Nebulizer Soln - NEB Q4H PRN SHORT OF BREATH/WHEEZING Benzocaine 1 applic 11/02/19 20:26 11/02/19 22:34 Americaine Ointment - DE 1 applic PRN PRN Administration HEMORRHOIDS Benzocaine/Menthol 1 each 10/31/19 03:50 10/31/19 04:39 Cepacol Lozenge - MM 1 each PRN PRN Administration SORE THROAT Carvedilol 3.125 mg 10/31/19 10:00 11/04/19 09:42 Coreg - PO 3.125 mg BID [facility] Administration Dabigatran 75 mg 10/31/19 10:00 11/04/19 09:43 Pradaxa - PO 75 mg BID [facility] Administration Sodium Chloride 1,000 mls @ 42 mls/hr 10/30/19 22:30 11/03/19 23:00 Normal Saline - IV Not Given ASDIR [facility] Ceftriaxone Sodium 1 gm/ 50 mls @ 100 mls/hr 10/31/19 20:00 11/04/19 09:42 Dextrose IVPB 100 mls/hr DAILY [facility] Administration Protocol Mirtazapine 15 mg 10/31/19 22:00 11/03/19 21:27 Remeron - PO 15 mg HS [facility] Administration Ondansetron HCl 4 mg 11/03/19 11:30 11/03/19 12:04 Zofran Injection IVPUSH 4 mg Q6H PRN Administration NAUSEA Pantoprazole Sodium 40 mg 10/31/19 16:00 11/04/19 09:42 Protonix - PO 40 mg DAILY [facility] Administration Tiotropium [place] 2 puff 10/31/19 10:00 11/04/19 09:43 Spiriva Respimat IH 2 puff DAILY [facility] Administration A/p: 84 F COPD, Afib on AC, HFpEF, HTN, pulmonary HTN, w/ CT chest findings suspicious for TB v.s. non-TB chronic infection. Awaiting AFBs to rule out TB. Empirically being treated for CAP. Progressive UL infiltrates possible 2/2 CAP vs. TB hx COPD, chronic bronchitis -keep on airborne isolation until AFBx 3 negative and quantiferon negative -thus far, AFB (-) x 1, 2nd sent. will send 3rd -quant pending -c/w ceftriaxone (10/31). zithro d/c as would partially tx mycobacterium -c/w NC 02, taper to sat > 90% -IS, spiriva, nebs PRN -pulm: Dr. Christiansen Progressive dysphagia -tolerating PO, clear MBS -GI recommending barium esophagram when cleared by pulm -asp precautions -on protonix -GI: Dr. Armstrong UTI -on ceftriaxone (10/31) -ucx: E.coli (>100,000) puentes-sensitive Afib on Xarelto -dose adjusted according to weight -no signs of bleeding -rate controlled w/ Coreg, will hold Digoxin as per Cardio recs. -Cardiology: Dr. Jules HTN -c/t hold lasix due to gross volume depletion -c/w coreg HFpEF -not in exacerbation -Cont. BB, , hold Lasix F/E/N gentle IVF; NS 42 cc/hr continue to follow lytes Encourage PO intake soft diet w/ thin liquid, w/ supplements (magic cup, chocolate ensure, ensure pudding) PPX DVT: on Xarelto GI: on Protonix Visit type - Emergency Visit Emergency Visit: Yes ED Registration Date: 10/30/19 Care time: The patient presented to the Emergency Department on the above date and was hospitalized for further evaluation of their emergent condition. - New Patient This patient is new to me today: No - Critical Care Critical Care patient: No - Discharge Referral Referred to [facility] No
[2019-11-04] MEDS: SODIUM CHLORIDE 1,000 ML IV SCH (22:01)
[2019-11-04] MEDS: MIRTAZAPINE 15 MG TABLET (FP) PO SCH (22:01)
[2019-11-05] MEDS ORDERED: cefTRIAXone SODIUM 1 GM VIAL ONE (09:07)
[2019-11-05] MEDS ORDERED: PT OWN MED DRAWER 7, Y5N ONE ×2 (09:07→20:56)
[2019-11-05] MEDS ORDERED: DEXTROSE 5%-WATER - 50 ML IVPB ONE (09:07)
[2019-11-05] MEDS: DABIGATRAN ETEXILATE MESYLATE 75 MG CAPSULE PO SCH ×2 (09:26→22:25)
[2019-11-05] MEDS: CARVEDILOL 3.125 MG TABLET (FP) PO SCH ×2 (09:26→22:25)
[2019-11-05] MEDS: CEFTRIAXONE 1 GM in DEXTROSE 5%-WATER - 50 ML IVPB SCH (09:27)
[2019-11-05] MEDS: PANTOPRAZOLE 40 MG TABLET (FP) PO SCH (09:27)
[2019-11-05] MEDS: ACETAMINOPHEN 325 MG TABLET (FP) PO PRN ×2 (09:28→18:56)
[2019-11-05] MEDS: TIOTROPIUM BROMIDE 2.5 MCG (SPIRIVA) RESPIMAT INHALER IH SCH (09:29)
--- NOTE | 2019-11-05 09:53 | PN ---
Progress Note (short form) - Note Progress Note: Resting in NAD. Some non-productive cough. No acute events overnight. Intake & Output 11/02/19 11/03/19 11/04/19 11/05/19 23:59 23:59 23:59 23:59 Intake Total 1272 1846 1788 336 Output Total 500 Balance 1272 1846 1288 336 Weight 91 lb 3.2 oz Last Vital Signs Temp Pulse Resp BP Pulse Ox 98.3 F 71 20 135/74 98 11/05/19 06:00 11/05/19 06:00 11/05/19 06:00 11/05/19 06:00 11/04/19 21:00 Active Medications Acetaminophen (Tylenol -) 650 mg PO Q6H PRN PRN Reason: PAIN LEVEL 6-10 Last Admin: 11/05/19 09:28 Dose: 650 mg Albuterol Sulfate (Ventolin 0.083% Nebulizer Soln -) 1 amp NEB Q4H PRN PRN Reason: SHORT OF BREATH/WHEEZING Benzocaine (Americaine Ointment -) 1 applic [place] PRN PRN PRN Reason: HEMORRHOIDS Last Admin: 11/02/19 22:34 Dose: 1 applic Benzocaine/Menthol (Cepacol Lozenge -) 1 each MM PRN PRN PRN Reason: SORE THROAT Last Admin: 10/31/19 04:39 Dose: 1 each Carvedilol (Coreg -) 3.125 mg PO BID [facility] Last Admin: 11/05/19 09:26 Dose: 3.125 mg Dabigatran (Pradaxa -) 75 mg PO BID [facility] Last Admin: 11/05/19 09:26 Dose: 75 mg Sodium Chloride (Normal Saline -) 1,000 mls @ 42 mls/hr IV ASDIR [facility] Last Admin: 11/04/19 22:01 Dose: 42 mls/hr Ceftriaxone Sodium 1 gm/ (Dextrose) 50 mls @ 100 mls/hr IVPB DAILY [facility]; Protocol Last Admin: 11/05/19 09:27 Dose: 100 mls/hr Mirtazapine (Remeron -) 15 mg PO HS [facility] Last Admin: 11/04/19 22:01 Dose: 15 mg Ondansetron HCl (Zofran Injection) 4 mg IVPUSH Q6H PRN PRN Reason: NAUSEA Last Admin: 11/03/19 12:04 Dose: 4 mg Pantoprazole Sodium (Protonix -) 40 mg PO DAILY [facility] Last Admin: 11/05/19 09:27 Dose: 40 mg Tiotropium [place] (Spiriva Respimat) 2 puff IH DAILY [facility] Last Admin: 11/05/19 09:29 Dose: 2 puff Constitutional: Yes: NAD, Thin Eyes: Yes: WNL HENT: Yes: WNL Neck: Yes: WNL Cardiovascular: Yes: Pulse Irregular, S1, S2 Respiratory: Yes: Diminished Gastrointestinal: Yes: Normal Bowel Sounds, Soft Extremities: Yes: WNL Edema: No Labs: Problem List - Problems (1) Failure to thrive Code(s): [id number] - Qualifiers: Failure to thrive age range: in adult Qualified Code(s): R62.7 - Adult failure to thrive (3) Diastolic heart failure Code(s): I50.30 - UNSPECIFIED DIASTOLIC (CONGESTIVE) HEART FAILURE Qualifiers: Heart failure chronicity: chronic heart failure (4) Moderate to severe pulmonary hypertension Code(s): I27.20 - PULMONARY HYPERTENSION, UNSPECIFIED (6) Breast cancer Code(s): C50.919 - MALIGNANT NEOPLASM OF UNSP SITE OF UNSPECIFIED FEMALE BREAST Assessment/Plan Failure to Thrive Pneumonia 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
--- NOTE | 2019-11-05 15:36 | PN ---
Physical Exam: 84 F h/o COPD not on O2, Afib on Xarelto, pulm HTN, HFpEF, presents with FTT, chest CT findings suspicious for TB/chronic non-TB mycobacterium, placed in airborne isolation, empirically being treated for CAP. AFB x1 negative, AFB 2 pending, awaiting further cultures and quantiferon pending. Patient's breathing stable. Sitting up in bed, high hopes, need to encourage PO intake. Physical Exam General: resting in bed, in NAD. pleasant, speaking in full sentences. HEENT: NCAT, PERRLA Neck: supple Cardio: S1, S2 RRR. no r/m/g Pulm: +scattered rhonchi. 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 Vital Signs - 24 hr 11/04/19 11/04/19 11/05/19 20:00 21:00 06:00 Temperature 98.1 F 98.3 F Pulse Rate 78 71 Respiratory 20 20 Rate Blood Pressure 130/78 135/74 O2 Sat by Pulse 98 Oximetry (%) 11/05/19 11/05/19 09:00 14:00 Temperature 97.8 F 97.9 F Pulse Rate 81 75 Respiratory 20 18 Rate Blood Pressure 131/67 112/54 L O2 Sat by Pulse 98 Oximetry (%) Current Medications Generic Name Dose Route Start Last Admin Trade Name Freq PRN Reason Stop Dose Admin Acetaminophen 650 mg 11/02/19 10:31 11/05/19 09:28 Tylenol - PO 650 mg Q6H PRN Administration PAIN LEVEL 6-10 Albuterol Sulfate 1 amp 11/02/19 13:19 Ventolin 0.083% Nebulizer Soln - NEB Q4H PRN SHORT OF BREATH/WHEEZING Benzocaine 1 applic 11/02/19 20:26 11/02/19 22:34 Americaine Ointment - [place] 1 applic PRN PRN Administration HEMORRHOIDS Benzocaine/Menthol 1 each 10/31/19 03:50 10/31/19 04:39 Cepacol Lozenge - MM 1 each PRN PRN Administration SORE THROAT Carvedilol 3.125 mg 10/31/19 10:00 11/05/19 09:26 Coreg - PO 3.125 mg BID [facility] Administration Dabigatran 75 mg 10/31/19 10:00 11/05/19 09:26 Pradaxa - PO 75 mg BID [facility] Administration Sodium Chloride 1,000 mls @ 42 mls/hr 10/30/19 22:30 11/04/19 22:01 Normal Saline - IV 42 mls/hr ASDIR [facility] Administration Ceftriaxone Sodium 1 gm/ 50 mls @ 100 mls/hr 10/31/19 20:00 11/05/19 09:27 Dextrose IVPB 100 mls/hr DAILY [facility] Administration Protocol Mirtazapine 15 mg 10/31/19 22:00 11/04/19 22:01 Remeron - PO 15 mg HS [facility] Administration Ondansetron HCl 4 mg 11/03/19 11:30 11/03/19 12:04 Zofran Injection IVPUSH 4 mg Q6H PRN Administration NAUSEA Pantoprazole Sodium 40 mg 10/31/19 16:00 11/05/19 09:27 Protonix - PO 40 mg DAILY [facility] Administration Tiotropium [place] 2 puff 10/31/19 10:00 11/05/19 09:29 Spiriva Respimat IH 2 puff DAILY [facility] Administration Microbiology 11/01/19 12:10 Blood - Peripheral Venous Blood Culture - Preliminary NO GROWTH OBTAINED AFTER 96 HOURS, INCUBATION TO CONTINUE FOR 1 DAYS. 11/01/19 12:10 Blood - Peripheral Venous Blood Culture - Preliminary NO GROWTH OBTAINED AFTER 96 HOURS, INCUBATION TO CONTINUE FOR 1 DAYS. 11/02/19 11:00 Sputum - Expectorated AFB Smear Concentration - Final 11/02/19 11:00 Sputum - Expectorated Mycobacterial Culture - Preliminary 10/30/19 00:15 Sputum - Expectorated Gram Stain - Final 10/30/19 00:15 Sputum - Expectorated Sputum Culture - Final NORMAL RESPIRATORY DAMI 10/30/19 20:10 Urine - Urine Clean Catch Urine Culture - Final Escherichia Coli A/p: 84 F COPD, Afib on AC, HFpEF, HTN, pulmonary HTN, w/ CT chest findings suspicious for TB v.s. non-TB chronic infection. Awaiting 3 AFBs to rule out TB. Empirically being treated for CAP. Pansensitive E. coli UTI on abx. Progressive UL infiltrates possible 2/2 CAP vs. TB hx COPD, chronic bronchitis -keep on airborne isolation until AFBx 3 negative and quantiferon negative -thus far, AFB (-) x 1, 2nd sent. will send 3rd -quant pending -c/w ceftriaxone (10/31). zithro d/c as would partially tx mycobacterium -c/w NC 02, taper to sat > 90% -IS, spiriva, nebs PRN -pulm: Dr. Christiansen/Dr. Da Silva Progressive dysphagia -tolerating PO, clear MBS -GI recommending barium esophagram when cleared by pulm -asp precautions, as of now no reported of aspiration/coughing when eating -on protonix -GI: Dr. Armstrong UTI -on ceftriaxone (10/31) -ucx: E.coli (>100,000) puentes-sensitive Afib on Xarelto -dose adjusted according to weight -no signs of bleeding -rate controlled w/ Coreg, will hold Digoxin as per Cardio recs. -Cardiology: Dr. Jules HTN -c/t hold lasix due to gross volume depletion -c/w coreg HFpEF -not in exacerbation -Cont. BB, , hold Lasix F/E/N gentle IVF continue to follow lytes Encourage PO intake soft diet w/ thin liquid, w/ supplements (magic cup, chocolate ensure, ensure pudding) PPX DVT: on Xarelto GI: on Protonix Visit type - Emergency Visit Emergency Visit: Yes ED Registration Date: 10/30/19 Care time: The patient presented to the Emergency Department on the above date and was hospitalized for further evaluation of their emergent condition. - New Patient This patient is new to me today: No - Critical Care Critical Care patient: No - Discharge Referral Referred to [facility] Med [facility].: No
[2019-11-05] MEDS: MIRTAZAPINE 15 MG TABLET (FP) PO SCH (22:25)
[2019-11-05] MEDS: SODIUM CHLORIDE 1,000 ML IV SCH (22:25)
[2019-11-06] MEDS: ACETAMINOPHEN 325 MG TABLET (FP) PO PRN ×2 (01:45→16:18)
[2019-11-06] MEDS ORDERED: cefTRIAXone SODIUM 1 GM VIAL ONE (09:29)
[2019-11-06] MEDS ORDERED: DEXTROSE 5%-WATER - 50 ML IVPB ONE (09:30)
[2019-11-06] MEDS: PANTOPRAZOLE 40 MG TABLET (FP) PO SCH (09:48)
[2019-11-06] MEDS: CEFTRIAXONE 1 GM in DEXTROSE 5%-WATER - 50 ML IVPB SCH (09:48)
[2019-11-06] MEDS: CARVEDILOL 3.125 MG TABLET (FP) PO SCH ×2 (09:48→22:12)
[2019-11-06] MEDS: DABIGATRAN ETEXILATE MESYLATE 75 MG CAPSULE PO SCH ×2 (09:49→22:23)
[2019-11-06] MEDS: TIOTROPIUM BROMIDE 2.5 MCG (SPIRIVA) RESPIMAT INHALER IH SCH (09:53)
--- NOTE | 2019-11-06 10:09 | PN ---
Progress Note, Physician History of Present Illness: The patient is an 84 year old white female, with a significant past medical history of HTN, Pulmonary HTN, COPD (bronchiectasis; not on home O2), diastolic CHF, Afib (on Coreg, digoxin, ; Pradaxa), Breast CA (s/p lumpectomy), Colitis, Diverticulitis, Chronic UTIs, and Insomnia, who presents to the emergency department with progressively worsening shortness of breath, weakness, and dysphagia. As per patient, over the past month and a half she has been experiencing increasing dysphagia with solids, nausea, shortness of breath, and productive cough. Aid at bedside notes that she has been requiring more assistance lately. Patient has not been eating much and notes 2 recent falls. Patient was advised by her PCP to report to the ED for further evaluation. Pt is concerned she has lost so much weight in the past year. She denies recent fevers, chills, headache or dizziness. She denies recent vomiting, diarrhea or constipation. She denies recent dysuria, frequency, urgency or hematuria. She denies recent chest pain or palpitations. Allergies: Meperidine HCl, Lactose Past surgical history: Appendectomy, cholecystectomy. Social history: Nonsmoker. Denies EtOH use and recreational drug use. Primary Care Physician: Dr. Haines - Current Medication List Current Medications: Active Medications Acetaminophen (Tylenol -) 650 mg PO Q6H PRN PRN Reason: PAIN LEVEL 6-10 Last Admin: 11/06/19 01:45 Dose: 650 mg Albuterol Sulfate (Ventolin 0.083% Nebulizer Soln -) 1 amp NEB Q4H PRN PRN Reason: SHORT OF BREATH/WHEEZING Benzocaine (Americaine Ointment -) 1 applic [place] PRN PRN PRN Reason: HEMORRHOIDS Last Admin: 11/02/19 22:34 Dose: 1 applic Benzocaine/Menthol (Cepacol Lozenge -) 1 each MM PRN PRN PRN Reason: SORE THROAT Last Admin: 10/31/19 04:39 Dose: 1 each Carvedilol (Coreg -) 3.125 mg PO BID [facility] Last Admin: 11/06/19 09:48 Dose: 3.125 mg Dabigatran (Pradaxa -) 75 mg PO BID [facility] Last Admin: 11/06/19 09:49 Dose: 75 mg Sodium Chloride (Normal Saline -) 1,000 mls @ 42 mls/hr IV ASDIR COUNT [facility]CLUDES [facility] Last Admin: 11/05/19 22:25 Dose: 42 mls/hr Ceftriaxone Sodium 1 gm/ (Dextrose) 50 mls @ 100 mls/hr IVPB DAILY [facility]; Protocol Last Admin: 11/06/19 09:48 Dose: 100 mls/hr Mirtazapine (Remeron -) 15 mg PO HS [facility] Last Admin: 11/05/19 22:25 Dose: 15 mg Ondansetron HCl (Zofran Injection) 4 mg IVPUSH Q6H PRN PRN Reason: NAUSEA Last Admin: 11/03/19 12:04 Dose: 4 mg Pantoprazole Sodium (Protonix -) 40 mg PO DAILY [facility] Last Admin: 11/06/19 09:48 Dose: 40 mg Tiotropium [place] (Spiriva Respimat) 2 puff IH DAILY [facility] Last Admin: 11/06/19 09:53 Dose: 2 puff - Objective Vital Signs: Vital Signs Temperature 97.7 F 11/06/19 08:54 Pulse Rate 81 11/06/19 08:54 Respiratory Rate 20 11/06/19 09:00 Blood Pressure 135/73 11/06/19 08:54 O2 Sat by Pulse Oximetry (%) 100 11/06/19 09:00 Eyes: Yes: WNL, Conjunctiva Clear, EOM Intact HENT: Yes: WNL, Atraumatic, Normocephalic Neck: Yes: WNL, Supple, Trachea Midline Cardiovascular: Yes: Pulse Irregular, S1, S2 Respiratory: Yes: WNL, Regular, CTA Bilaterally Gastrointestinal: Yes: WNL, Normal Bowel Sounds Genitourinary: Yes: WNL Musculoskeletal: Yes: WNL Extremities: Yes: WNL Edema: No Integumentary: Yes: WNL Neurological: Yes: WNL, Alert, Oriented ...Motor Strength: WNL Psychiatric: Yes: WNL Labs: CBC, BMP 11/04/19 05:25 11/04/19 05:25 Assessment/Plan - Problems (1) Acute on chronic diastolic CHF (congestive heart failure) Assessment/Plan: On carvedilol. F/u BUN/Cr, electrolytes, dialy weight, Is and Os. Code(s): I50.33 - ACUTE ON CHRONIC DIASTOLIC (CONGESTIVE) HEART FAILURE (2) COPD (chronic obstructive pulmonary disease) Assessment/Plan: CT: bronchiectasis. moderately severe pulmonary HTN. Code(s): J44.9 - CHRONIC OBSTRUCTIVE PULMONARY DISEASE, UNSPECIFIED (3) Dysphagia Code(s): R13.10 - DYSPHAGIA, UNSPECIFIED Qualifiers: Dysphagia type: unspecified Qualified Code(s): R13.10 - Dysphagia, unspecified (4) Failure to thrive Code(s): [id number] - Qualifiers: Failure to thrive age range: in adult Qualified Code(s): R62.7 - Adult failure to thrive (5) Atrial fibrillation Assessment/Plan: continue carvedilol for HR and BP control. On Pradaxa for anticoagulation. F/u EKG, telemetry. TSH WNL (11/19). K and Mg low: replete. (6) Pulmonary HTN Assessment/Plan: moderately severe by ECHO. Bronchiectasis Code(s): I27.20 - PULMONARY HYPERTENSION, UNSPECIFIED (7) Hypokalemia Assessment/Plan: replete, and keep 4.0-4.5 Code(s): E87.6 - HYPOKALEMIA (8) Hypomagnesemia Assessment/Plan: replete, and keep level 2.0-2.4 Code(s): E83.42 - HYPOMAGNESEMIA (9) PTB (pulmonary tuberculosis) Assessment/Plan: on airborne isolation while PTB is being ruled out; 1st AFB negative. Code(s): A15.0 - TUBERCULOSIS OF LUNG (10) Weight loss Assessment/Plan: Pt has lost nearly 20 lbs in the past 4 months. She feels she has a better appetite today. Worlup in progress. TB being ruled out.
--- NOTE | 2019-11-06 11:53 | PN ---
Progress Note (short form) - Note Progress Note: Resting in NAD. Some non-productive cough. No acute events overnight. Constitutional: Yes: NAD, Thin Eyes: Yes: WNL HENT: Yes: WNL Neck: Yes: WNL Cardiovascular: Yes: Pulse Irregular, S1, S2 Respiratory: Yes: Diminished Gastrointestinal: Yes: Normal Bowel Sounds, Soft Extremities: Yes: WNL Edema: No Labs: Problem List - Problems (1) Failure to thrive Code(s): WHF4133 - Qualifiers: Failure to thrive age range: in adult Qualified Code(s): R62.7 - Adult failure to thrive (3) Diastolic heart failure Code(s): I50.30 - UNSPECIFIED DIASTOLIC (CONGESTIVE) HEART FAILURE Qualifiers: Heart failure chronicity: chronic heart failure (4) Moderate to severe pulmonary hypertension Code(s): I27.20 - PULMONARY HYPERTENSION, UNSPECIFIED (6) Breast cancer Code(s): C50.919 - MALIGNANT NEOPLASM OF UNSP SITE OF UNSPECIFIED FEMALE BREAST Assessment/Plan Failure to Thrive Pneumonia 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
--- NOTE | 2019-11-06 15:51 | PN ---
Progress Note (short form) - Note Progress Note: Hospitalist Medicine Has been tolerating diet. 3rd AFB to be sent. Discussed case w/ daughter, Haven, on phone. Would like pt to see psych d/t concern for depression Vitals 11/06/19 13:58 Temperature 98.1 F Pulse Rate 69 Respiratory 20 Rate Blood Pressure 122/67 Physical Exam general: resting in bed, in NAD. HEENT: NCAT, PERRLA neck: supple cardio: S1, S2 RRR. no r/m/g pulm: +scattered rhonchi. 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: bin packer 2-12 grossly intact Laboratory Tests 11/04/19 11/04/19 05:25 05:25 WBC 6.2 Hgb 11.4 Hct 34.3 Plt Count 281 Sodium 133 L Potassium 4.4 Chloride 101 Carbon Dioxide 26 BUN 7.2 Creatinine 0.5 L Est GFR (CKD-EPI)AfAm 101.57 Microbiology 10/30/19 20:10 Urine - Urine Clean Catch Urine Culture - Final Escherichia Coli 10/30/19 00:15 Sputum - Expectorated Gram Stain - Final 10/30/19 00:15 Sputum - Expectorated Sputum Culture - Final NORMAL RESPIRATORY DAMI 11/02/19 11:00 Sputum - Expectorated AFB Smear Concentration - Final 11/01/19 12:10 Blood - Peripheral Venous Blood Culture - Final NO GROWTH AFTER 5 DAYS INCUBATION 11/01/19 12:10 Blood - Peripheral Venous Blood Culture - Final NO GROWTH AFTER 5 DAYS INCUBATION 11/04/19 14:30 Sputum - Expectorated AFB Smear Concentration - Preliminary 11/04/19 14:30 Sputum - Expectorated Mycobacterial Culture - Preliminary 11/02/19 11:00 Sputum - Expectorated Mycobacterial Culture - Preliminary Imaging 10/30/19: CXR: since previous (07/2019), progressive congestive changes with upper lobe infiltrates and some pleural fluid with atelectasis at the right base. there is a large heart, sclerotic knob. prominent daivd, and fluid in the horizontal fissure. 10/30/19: C-spine CT: no fracture. multilevel degenerative joint dz . partially imaged pulm apices again demonstrate chronic pleural thickening and thickened interstitial changes suggestive of COPD. 10/30/19: Head CT: no CT evidence of acute intracranial path. mild periventricular and subcortical chronic microvascular ischemic chanes are seen. no def interval change from previous 07/07/2019. chronic paranasal sinus disease again noted. 10/30/19: modified barium swallow: normal swallowing study. trial of soft, chopped diet and thin liquid, ensure, magic cup, ensure pudding. 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 #Progressive UL infiltrates possible 2/2 CAP vs. TB #hx COPD, chronic bronchitis -keep on airborne isolation until AFBx3 negative and quantiferon negative -thus far, AFB (-) x2, 3rd to be sent. -quant (-) -c/w ceftriaxone (10/31). zithro d/c as would partially tx mycobacterium -c/w NC 02, taper to sat > 90% -IS, spiriva, nebs PRN -pulm: Dr. Christiansen #Progressive dysphagia -tolerating PO, clear MBS -GI recommending barium esophagram when cleared by pulm -asp precautions -on protonix -r/o depression -GI: Dr. Mensah -Psych: Dr. Gaona #UTI -on ceftriaxone (10/31) -ucx: E.coli (>100,000) puentes-sensitive #Afib on Xarelto -dose adjusted according to weight -no signs of bleeding -rate controlled w/ Coreg, hold dig per cardio -cardio: Dr. Jules #HTN -c/t hold lasix -c/w coreg #HFpEF -not in exacerbation -Cont. BB, , hold Lasix #F/E/N gentle IVF; NS 42 cc/hr continue to follow lytes soft diet, w/ supplements (magic cup, ensure, ensure pudding) #PPX DVT: on xarelto GI: on protonix #Dispo cont'd monitoring on tele for barium esophagram when cleared by pulm, await GI recs on d/c will go to SNF, d/w daughter . in agreement pre and post on d/c
--- NOTE | 2019-11-06 15:52 | PN ---
Teaching Attending Note Name of Resident: Kisha Morales ATTENDING PHYSICIAN STATEMENT I saw and evaluated the patient. I reviewed the resident's note and discussed the case with the resident. I agree with the resident's findings and plan as documented. SUBJECTIVE: Patient has a dry cough, otherwise she has no complaints. OBJECTIVE: Vital Signs Period Temp Pulse Resp BP Sys/Brewer Pulse Ox Last 24 Hr 97.7 F-98.2 F 63-91 20-22 110-135/67-83 99-100 HEART: Irregular LUNGS: Few rhonchi ABDOMEN: Soft, non-tender, non-distended, normal BS EXTREMITIES: No edema Current Medications Generic Name Dose Route Start Last Admin Trade Name Freq PRN Reason Stop Dose Admin Acetaminophen 650 mg 11/02/19 10:31 11/06/19 01:45 Tylenol - PO 650 mg Q6H PRN Administration PAIN LEVEL 6-10 Albuterol Sulfate 1 amp 11/02/19 13:19 Ventolin 0.083% Nebulizer Soln - NEB Q4H PRN SHORT OF BREATH/WHEEZING Benzocaine 1 applic 11/02/19 20:26 11/02/19 22:34 Americaine Ointment - AL 1 applic PRN PRN Administration HEMORRHOIDS Benzocaine/Menthol 1 each 10/31/19 03:50 10/31/19 04:39 Cepacol Lozenge - MM 1 each PRN PRN Administration SORE THROAT Carvedilol 3.125 mg 10/31/19 10:00 11/06/19 09:48 Coreg - PO 3.125 mg BID LAVINIA Administration Dabigatran 75 mg 10/31/19 10:00 11/06/19 09:49 Pradaxa - PO 75 mg BID LAVINIA Administration Sodium Chloride 1,000 mls @ 42 mls/hr 10/30/19 22:30 11/05/19 22:25 Normal Saline - IV 42 mls/hr ASDIR LAVINIA Administration Ceftriaxone Sodium 1 gm/ 50 mls @ 100 mls/hr 10/31/19 20:00 11/06/19 09:48 Dextrose IVPB 100 mls/hr DAILY LAVINIA Administration Protocol Mirtazapine 15 mg 10/31/19 22:00 11/05/19 22:25 Remeron - PO 15 mg HS LAVINIA Administration Ondansetron HCl 4 mg 11/03/19 11:30 11/03/19 12:04 Zofran Injection IVPUSH 4 mg Q6H PRN Administration NAUSEA Pantoprazole Sodium 40 mg 10/31/19 16:00 11/06/19 09:48 Protonix - PO 40 mg DAILY LAVINIA Administration Tiotropium [place] 2 puff 10/31/19 10:00 11/06/19 09:53 Spiriva Respimat IH 2 puff DAILY LAVINIA Administration ASSESSMENT AND PLAN: This is an 84 year old woman with a history of HTN, atrial fib, chronic diastolic heart failure, COPD, pulm HTN, breast cancer and lumpectomy who presented to the ED with progressive weakness, fatigue, dysphagia, loss of appetite, and weight loss 1. Pneumonia, possible chronic atypical Mycobacterial infection - Continue ceftriaxone (day 7) - Awaiting 3rd AFB - Quantiferon negative - Oxygen to maintain saturation >90% 2. COPD, chronic bronchitis - Continue Spiriva, albuterol as needed, O2 as needed 3. Dysphagia - Tolerating diet - Modified barium swallow shows normal swallowing - GI recommends barium espophagram 4. E. coli UTI - Continue ceftriaxone (day 7) 5. Atrial fibrillation, permanent - Rate controlled - Continue Coreg, Pradaxa - Digoxin discontinued 6. HTN - Continue Coreg - Lasix held secondary to dehydration 7. Chronic diastolic heart failure - Stable - Lasix held secondary to dehydration 8. Pulmonary HTN 9. History of breast cancer, lumpectomy 10. Disposition - Plan for discharge to SNF
--- NOTE | 2019-11-06 18:47 | CON.PSY ---
Psychiatry Consult Chief Complaint: 84 Yumiko doloresd female seen fo4r Psychj 3evaluation for poor appetite and depression. casr dfiscussed with daughter. Lives at home with help. Symptoms: reports: Depressed Mood, Appetite Disturbance - Previous Psychiatric Treatment Outpatient: None, Less than 6 mos ago Inpatient: None - Previous Substance Abuse Treatment Outpatient: None Inpatient: None - Reason for Previous Treatment Reason for Previous Treatment: Major Depression - Current Medications Current Medications: Active Medications Acetaminophen (Tylenol -) 650 mg PO Q6H PRN PRN Reason: PAIN LEVEL 6-10 Last Admin: 11/06/19 16:18 Dose: 650 mg Albuterol Sulfate (Ventolin 0.083% Nebulizer Soln -) 1 amp NEB Q4H PRN PRN Reason: SHORT OF BREATH/WHEEZING Benzocaine (Americaine Ointment -) 1 applic [place] PRN PRN PRN Reason: HEMORRHOIDS Last Admin: 11/02/19 22:34 Dose: 1 applic Benzocaine/Menthol (Cepacol Lozenge -) 1 each MM PRN PRN PRN Reason: SORE THROAT Last Admin: 10/31/19 04:39 Dose: 1 each Carvedilol (Coreg -) 3.125 mg PO BID [facility] Last Admin: 11/06/19 09:48 Dose: 3.125 mg Dabigatran (Pradaxa -) 75 mg PO BID [facility] Last Admin: 11/06/19 09:49 Dose: 75 mg Dronabinol (Marinol -) 2.5 mg PO DAILY [facility] Sodium Chloride (Normal Saline -) 1,000 mls @ 42 mls/hr IV ASDIR [facility] Last Admin: 11/05/19 22:25 Dose: 42 mls/hr Ceftriaxone Sodium 1 gm/ (Dextrose) 50 mls @ 100 mls/hr IVPB DAILY [facility]; Protocol Last Admin: 11/06/19 09:48 Dose: 100 mls/hr Mirtazapine (Remeron -) 15 mg PO HS [facility] Last Admin: 11/05/19 22:25 Dose: 15 mg Ondansetron HCl (Zofran Injection) 4 mg IVPUSH Q6H PRN PRN Reason: NAUSEA Last Admin: 11/03/19 12:04 Dose: 4 mg Pantoprazole Sodium (Protonix -) 40 mg PO DAILY [facility] Last Admin: 11/06/19 09:48 Dose: 40 mg Tiotropium [place] (Spiriva Respimat) 2 puff IH DAILY L[facility]INIA Last Admin: 11/06/19 09:53 Dose: 2 puff - Allergies Allergies: Allergies Allergy/AdvReac Type Severity Reaction Status Date / Time meperidine HCl [From Demerol] AdvReac Intermediate Vomiting Verified 07/07/19 03 :29 lactose-intolerant AdvReac Uncoded 07/07/19 03:29 - Current Living Status Usual Living Arrangement: Alone - Current Mental Status Evaluation Appearance: Well Groomed Attitude: Cooperative - Affect Affect: Constrictive Appropriateness: Appropriate to Content - Mood Mood: Depressed - Speech/Language Expressive: Coherent - Psychomotor Activity Psychomotor Activity: Slowed - Thought Process Thought Process: Intact - Thought Content Hallucinations: Absent Delusions: Absent - Self Perception Self Perception: No Impairment - Cognition Attention: Alert Orientation: Time Memory, Immediate Recall: Intact Memory, Short Term: 3/3 Memory, Remote with Promptin/3 - Concentration Serial Sevens Intact: Yes Simple Calculations Intact: Yes - Abstraction Proverb Interpretation: Intact Judgement: Intact - Insight Insight: Intact - Impulse Control Impulse Control: Good Control - Suicidal Ideation Suicidal Ideation: No - Homicidal Ideation Homicidal Ideation: No Assessment/Plan 1) Continue with Remeron 15mg po hs. 2) add Marinol 2.5m,g caps po hs, can be inctreased to 5m,g ifr needed in few weeks.
[2019-11-06] MEDS ORDERED: PT OWN MED DRAWER 7, Y5N ONE (21:29)
[2019-11-06] MEDS: MIRTAZAPINE 15 MG TABLET (FP) PO SCH (22:12)
[2019-11-06] MEDS: SODIUM CHLORIDE 1,000 ML IV SCH (22:15)
[2019-11-07 06:39] LABS: BASO % 0.6 % (0-2.0); EOS % 3.3 % (0-4.5); HEMATOCRIT 34.8 % (32.4-45.2); HEMOGLOBIN 11.5 GM/dL (10.7-15.3); LYMPH % 9.9 % (8-40); MCH 32.9 pg (25.7-33.7); MCHC 33.1 g/dl (32.0-36.0); MEAN CELL VOLUME 99.5 fl (80-96); MEAN PLT VOLUME 7.7 fl (7.5-11.1); MONO % 11.8 % (3.8-10.2); NEUT % 74.4 % (42.8-82.8); PLATELET COUNT 311 K/MM3 (134-434); RBC 3.49 M/mm3 (3.60-5.2); RDW 16.2 % (11.6-15.6); WHITE BLOOD COUNT 6.4 K/mm3 (4.0-10.0)
[2019-11-07] MEDS: ACETAMINOPHEN 325 MG TABLET (FP) PO PRN (06:56)
[2019-11-07 07:10] LABS: BLOOD UREA NITROGEN 7.8 mg/dL (7-18); CALCIUM 8.5 mg/dL (8.5-10.1); CREATININE 0.5 mg/dL (0.55-1.3); MAGNESIUM 1.7 mg/dL (1.8-2.4); PHOSPHOROUS 3.1 mg/dL (2.5-4.9); POTASSIUM 4.2 mmol/L (3.5-5.1)
[2019-11-07] MEDS ORDERED: cefTRIAXone SODIUM 1 GM VIAL ONE (07:55)
[2019-11-07] MEDS ORDERED: DEXTROSE 5%-WATER - 50 ML IVPB ONE (07:55)
[2019-11-07] MEDS ORDERED: MAGNESIUM OXIDE 400 MG TABLET (FP) PO ONE (08:30)
[2019-11-07] MEDS ORDERED: PT OWN MED DRAWER 7, Y5N ONE (08:57)
[2019-11-07] MEDS: CEFTRIAXONE 1 GM in DEXTROSE 5%-WATER - 50 ML IVPB SCH (09:25)
[2019-11-07] MEDS: DABIGATRAN ETEXILATE MESYLATE 75 MG CAPSULE PO SCH ×2 (09:26→21:36)
[2019-11-07] MEDS: TIOTROPIUM BROMIDE 2.5 MCG (SPIRIVA) RESPIMAT INHALER IH SCH (09:26)
[2019-11-07] MEDS: CARVEDILOL 3.125 MG TABLET (FP) PO SCH ×2 (09:26→21:35)
[2019-11-07] MEDS: PANTOPRAZOLE 40 MG TABLET (FP) PO SCH (09:26)
--- NOTE | 2019-11-07 10:14 | PN ---
Progress Note, Physician Chief Complaint: Pt A&Ox3; states she still feels "terribly weak"; denies chest pain or dyspnea; moves all extremities on request. Wants soup and Ensure. History of Present Illness: The patient is an 84 year old white female, with a significant past medical history of HTN, Pulmonary HTN, COPD (bronchiectasis; not on home O2), diastolic CHF, Afib (on Coreg, digoxin, ; Pradaxa), Breast CA (s/p lumpectomy), Colitis, Diverticulitis, Chronic UTIs, and Insomnia, who presents to the emergency department with progressively worsening shortness of breath, weakness, and dysphagia. As per patient, over the past month and a half she has been experiencing increasing dysphagia with solids, nausea, shortness of breath, and productive cough. Aid at bedside notes that she has been requiring more assistance lately. Patient has not been eating much and notes 2 recent falls. Patient was advised by her PCP to report to the ED for further evaluation. Pt is concerned she has lost so much weight in the past year. She denies recent fevers, chills, headache or dizziness. She denies recent vomiting, diarrhea or constipation. She denies recent dysuria, frequency, urgency or hematuria. She denies recent chest pain or palpitations. Allergies: Meperidine HCl, Lactose Past surgical history: Appendectomy, cholecystectomy. Social history: Nonsmoker. Denies EtOH use and recreational drug use. Primary Care Physician: Dr. Haines Forest Fire Officer: Dr. Jules; ?Dr. Egan - Current Medication List Current Medications: Active Medications Acetaminophen (Tylenol -) 650 mg PO Q6H PRN PRN Reason: PAIN LEVEL 6-10 Last Admin: 11/07/19 06:56 Dose: 650 mg Albuterol Sulfate (Ventolin 0.083% Nebulizer Soln -) 1 amp NEB Q4H PRN PRN Reason: SHORT OF BREATH/WHEEZING Benzocaine (Americaine Ointment -) 1 applic [place] PRN PRN PRN Reason: HEMORRHOIDS Last Admin: 11/02/19 22:34 Dose: 1 applic Benzocaine/Menthol (Cepacol Lozenge -) 1 each MM PRN PRN PRN Reason: SORE THROAT Last Admin: 10/31/19 04:39 Dose: 1 each Carvedilol (Coreg -) 3.125 mg PO BID [facility] Last Admin: 11/07/19 09:26 Dose: 3.125 mg Dabigatran (Pradaxa -) 75 mg PO BID [facility] Last Admin: 11/07/19 09:26 Dose: 75 mg Dronabinol (Marinol -) 2.5 mg PO DAILY [facility] Sodium Chloride (Normal Saline -) 1,000 mls @ 42 mls/hr IV ASDIR [facility] Last Admin: 11/06/19 22:15 Dose: 42 mls/hr Ceftriaxone Sodium 1 gm/ (Dextrose) 50 mls @ 100 mls/hr IVPB DAILY [facility]; Protocol Last Admin: 11/07/19 09:25 Dose: 100 mls/hr Mirtazapine (Remeron -) 15 mg PO HS [facility] Last Admin: 11/06/19 22:12 Dose: 15 mg Ondansetron HCl (Zofran Injection) 4 mg IVPUSH Q6H PRN PRN Reason: NAUSEA Last Admin: 11/03/19 12:04 Dose: 4 mg Pantoprazole Sodium (Protonix -) 40 mg PO DAILY [facility] Last Admin: 11/07/19 09:26 Dose: 40 mg Tiotropium [place] (Spiriva Respimat) 2 puff IH DAILY [facility] Last Admin: 11/07/19 09:26 Dose: 2 puff - Objective Vital Signs: Vital Signs Temperature 98.0 F 11/07/19 02:00 Pulse Rate 84 11/07/19 08:58 Respiratory Rate 20 11/07/19 02:00 Blood Pressure 145/70 11/07/19 02:00 O2 Sat by Pulse Oximetry (%) 96 11/07/19 08:58 Constitutional: Yes: Anxious, Cachectic Eyes: Yes: WNL HENT: Yes: WNL Neck: Yes: Decreased ROM Cardiovascular: Yes: Pulse Irregular Respiratory: Yes: Regular, SOB on Exertion Gastrointestinal: Yes: Soft ...Rectal Exam: Yes: Deferred Genitourinary: No: Anuria Breast(s): Yes: WNL Musculoskeletal: Yes: Muscle Weakness Extremities: Yes: Cool Edema: No Integumentary: Yes: WNL Neurological: Yes: Alert, Oriented, Weakness Psychiatric: Yes: WNL Labs: CBC, BMP 11/07/19 05:10 11/07/19 05:10 Problem List - Problems (1) Acute on chronic diastolic CHF (congestive heart failure) Assessment/Plan: On carvedilol. +JVD f/u CXR. F/u BUN/Cr, electrolytes, dialy weight, Is and Os. Code(s): I50.33 - ACUTE ON CHRONIC DIASTOLIC (CONGESTIVE) HEART FAILURE (2) COPD (chronic obstructive pulmonary disease) Assessment/Plan: CT: bronchiectasis. moderately severe pulmonary HTN. F/u with supervisor statement clerks. Code(s): J44.9 - CHRONIC OBSTRUCTIVE PULMONARY DISEASE, UNSPECIFIED (3) Dysphagia Code(s): R13.10 - DYSPHAGIA, UNSPECIFIED Qualifiers: Dysphagia type: unspecified Qualified Code(s): R13.10 - Dysphagia, unspecified (4) Failure to thrive Code(s): [id number] - Qualifiers: Failure to thrive age range: in adult Qualified Code(s): R62.7 - Adult failure to thrive (5) Atrial fibrillation Assessment/Plan: continue carvedilol for HR and BP control. On Pradaxa for anticoagulation. F/u EKG, telemetry. TSH WNL (11/19). K and Mg low: replete. (6) Pulmonary HTN Assessment/Plan: moderately severe by ECHO. Bronchiectasis O2, bronchodilators per supervisor statement clerks. Code(s): I27.20 - PULMONARY HYPERTENSION, UNSPECIFIED (7) Hypokalemia Assessment/Plan: repleted, and keep 4.0-4.5 Code(s): E87.6 - HYPOKALEMIA (8) Hypomagnesemia Assessment/Plan: replete, and keep level 2.0-2.4 Start mag oxide 400 mg bid x 2 days, then reassess. Code(s): E83.42 - HYPOMAGNESEMIA (9) PTB (pulmonary tuberculosis) Assessment/Plan: on airborne isolation while PTB is being ruled out; AFB negative x 2. Code(s): A15.0 - TUBERCULOSIS OF LUNG (10) Weight loss Assessment/Plan: Pt has lost nearly 20 lbs in the past 4 months. Worlup in progress. TB being ruled out.; AFB negative x 2 presently. Encourage PO solids and liquids; f/u with fuel cell test engineer (ot says she takes Ensure and/or Boost at home; c/o hospital offering of nutrition liquid as "too dense and small"). Code(s): R63.4 - ABNORMAL WEIGHT LOSS
[2019-11-07] MEDS: DRONABINOL 2.5 MG CAPSULE PO SCH (10:41)
[2019-11-07] MEDS ORDERED: SODIUM CHLORIDE FOR INHALATION 3 ML VIAL.NEB IH ONE (11:34)
--- NOTE | 2019-11-07 12:40 | PN ---
Progress Note (short form) - Note Progress Note: Resting in NAD. Some non-productive cough. No acute events overnight. Intake & Output 11/04/19 11/05/19 11/06/19 11/07/19 23:59 23:59 23:59 23:59 Intake Total 1788 1370 2342 450 Output Total 500 Balance 1288 1370 2342 450 Weight 91 lb 3.2 oz 90 lb 6.4 oz 91 lb 3.2 oz Last Vital Signs Temp Pulse Resp BP Pulse Ox 97.9 F 85 18 115/68 96 11/07/19 10:00 11/07/19 10:00 11/07/19 10:00 11/07/19 10:00 11/07/19 08:58 Active Medications Acetaminophen (Tylenol -) 650 mg PO Q6H PRN PRN Reason: PAIN LEVEL 6-10 Last Admin: 11/07/19 06:56 Dose: 650 mg Albuterol Sulfate (Ventolin 0.083% Nebulizer Soln -) 1 amp NEB Q4H PRN PRN Reason: SHORT OF BREATH/WHEEZING Benzocaine (Americaine Ointment -) 1 applic [place] PRN PRN PRN Reason: HEMORRHOIDS Last Admin: 11/02/19 22:34 Dose: 1 applic Benzocaine/Menthol (Cepacol Lozenge -) 1 each MM PRN PRN PRN Reason: SORE THROAT Last Admin: 10/31/19 04:39 Dose: 1 each Carvedilol (Coreg -) 3.125 mg PO BID [facility] Last Admin: 11/07/19 09:26 Dose: 3.125 mg Dabigatran (Pradaxa -) 75 mg PO BID [facility] Last Admin: 11/07/19 09:26 Dose: 75 mg Dronabinol (Marinol -) 2.5 mg PO DAILY [facility] Last Admin: 11/07/19 10:41 Dose: 2.5 mg Sodium Chloride (Normal Saline -) 1,000 mls @ 42 mls/hr IV ASDIR [facility] Last Admin: 11/06/19 22:15 Dose: 42 mls/hr Ceftriaxone Sodium 1 gm/ (Dextrose) 50 mls @ 100 mls/hr IVPB DAILY [facility]; Protocol Last Admin: 11/07/19 09:25 Dose: 100 mls/hr Magnesium Oxide (Mag-Ox -) 400 mg PO BID [facility] Stop: 11/09/19 10:00 Mirtazapine (Remeron -) 15 mg PO HS [facility] Last Admin: 11/06/19 22:12 Dose: 15 mg Ondansetron HCl (Zofran Injection) 4 mg IVPUSH Q6H PRN PRN Reason: NAUSEA Last Admin: 11/03/19 12:04 Dose: 4 mg Pantoprazole Sodium (Protonix -) 40 mg PO DAILY [facility] Last Admin: 11/07/19 09:26 Dose: 40 mg Tiotropium [place] (Spiriva Respimat) 2 puff IH DAILY [facility] Last Admin: 11/07/19 09:26 Dose: 2 puff Constitutional: Yes: NAD, Thin Eyes: Yes: WNL HENT: Yes: WNL Neck: Yes: WNL Cardiovascular: Yes: Pulse Irregular, S1, S2 Respiratory: Yes: Diminished Gastrointestinal: Yes: Normal Bowel Sounds, Soft Extremities: Yes: WNL Edema: No Labs: Laboratory Results - last 24 hr 11/03/19 11/07/19 11/07/19 12:10 05:10 05:10 WBC 6.4 RBC 3.49 L Hgb 11.5 Hct 34.8 MCV 99.5 H MCH 32.9 MCHC 33.1 RDW 16.2 H Plt Count 311 MPV 7.7 Absolute Neuts (auto) 4.8 Neutrophils % 74.4 Lymphocytes % 9.9 Monocytes % 11.8 H Eosinophils % 3.3 Basophils % 0.6 Nucleated RBC % 0 Sodium 133 L Potassium 4.2 Chloride 100 Carbon Dioxide 26 Anion Gap 7 L BUN 7.8 Creatinine 0.5 L Est GFR (CKD-EPI)AfAm 101.57 Est GFR (CKD-EPI)NonAf 87.64 Random Glucose 87 Calcium 8.5 Phosphorus 3.1 Magnesium 1.7 L TB Test (QFT) Nil 0.36 TB Test (QFT) Mitogen 6.16 TB Test (QFT) Antigen 0.48 TB Test (QFT) Negative TB Positive Criteria Problem List - Problems (1) Failure to thrive Code(s): FCK9472 - Qualifiers: Failure to thrive age range: in adult Qualified Code(s): R62.7 - Adult failure to thrive (3) Diastolic heart failure Code(s): I50.30 - UNSPECIFIED DIASTOLIC (CONGESTIVE) HEART FAILURE Qualifiers: Heart failure chronicity: chronic heart failure (4) Moderate to severe pulmonary hypertension Code(s): I27.20 - PULMONARY HYPERTENSION, UNSPECIFIED (6) Breast cancer Code(s): C50.919 - MALIGNANT NEOPLASM OF UNSP SITE OF UNSPECIFIED FEMALE BREAST Assessment/Plan Failure to Thrive Pneumonia 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
--- NOTE | 2019-11-07 15:40 | PN ---
Progress Note (short form) - Note Progress Note: Hospitalist Medicine Without complaint. 3rd AFB sent (-). Vitals 11/07/19 14:00 Temperature 98 F Pulse Rate 75 Respiratory 20 Rate Blood Pressure 113/59 L Physical Exam general: resting in bed, in NAD. HEENT: NCAT, PERRLA neck: supple cardio: S1, S2 RRR. no r/m/g pulm: +few rhonchi. 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: general operator 2-12 grossly intact Laboratory Tests 11/07/19 11/07/19 05:10 05:10 WBC 6.4 Hgb 11.5 Hct 34.8 Plt Count 311 Sodium 133 L Potassium 4.2 Chloride 100 Carbon Dioxide 26 Anion Gap 7 L BUN 7.8 Creatinine 0.5 L Est GFR (CKD-EPI)AfAm 101.57 Est GFR (CKD-EPI)NonAf 87.64 Random Glucose 87 Calcium 8.5 Phosphorus 3.1 Magnesium 1.7 L Microbiology 10/30/19 20:10 Urine - Urine Clean Catch Urine Culture - Final Escherichia Coli 10/30/19 00:15 Sputum - Expectorated Gram Stain - Final 10/30/19 00:15 Sputum - Expectorated Sputum Culture - Final NORMAL RESPIRATORY DAMI 11/02/19 11:00 Sputum - Expectorated AFB Smear Concentration - Final 11/01/19 12:10 Blood - Peripheral Venous Blood Culture - Final NO GROWTH AFTER 5 DAYS INCUBATION 11/01/19 12:10 Blood - Peripheral Venous Blood Culture - Final NO GROWTH AFTER 5 DAYS INCUBATION 11/04/19 14:30 Sputum - Expectorated AFB Smear Concentration - Preliminary 11/04/19 14:30 Sputum - Expectorated Mycobacterial Culture - Preliminary 11/02/19 11:00 Sputum - Expectorated Mycobacterial Culture - Preliminary Imaging 10/30/19: CXR: since previous (07/2019), progressive congestive changes with upper lobe infiltrates and some pleural fluid with atelectasis at the right base. there is a large heart, sclerotic knob. prominent david, and fluid in the horizontal fissure. 10/30/19: C-spine CT: no fracture. multilevel degenerative joint dz . partially imaged pulm apices again demonstrate chronic pleural thickening and thickened interstitial changes suggestive of COPD. 10/30/19: Head CT: no CT evidence of acute intracranial path. mild periventricular and subcortical chronic microvascular ischemic chanes are seen. no def interval change from previous 07/07/2019. chronic paranasal sinus disease again noted. 10/30/19: modified barium swallow: normal swallowing study. trial of soft, chopped diet and thin liquid, ensure, magic cup, ensure pudding. 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 #Progressive UL infiltrates possible 2/2 CAP vs. TB #hx COPD, chronic bronchitis -keep on airborne isolation until AFBx3 negative and quantiferon negative -thus far, AFB (-) x3 however await final -quant (-) -c/w ceftriaxone (10/31). zithro d/c as would partially tx mycobacterium -c/w NC 02, taper to sat > 90% -IS, spiriva, duonebs RQID, nebs PRN -pulm: Dr. Christiansen #Progressive dysphagia -tolerating PO, clear MBS -GI recommending barium esophagram when cleared by pulm -asp precautions -on protonix -r/o depression; per psych, started on marinol. c/w remeron -GI: Dr. Mensah -Psych: Dr. Gaona #UTI -on ceftriaxone (10/31) -ucx: E.coli (>100,000) puentes-sensitive #Afib on Xarelto -dose adjusted according to weight -no signs of bleeding -rate controlled w/ Coreg, hold dig per cardio -cardio: Dr. Jules #HTN -c/t hold lasix -c/w coreg #HFpEF -not in exacerbation -Cont. BB, , hold Lasix #F/E/N gentle IVF; NS 42 cc/hr continue to follow lytes soft diet, w/ supplements (magic cup, ensure, ensure pudding) #PPX DVT: on xarelto GI: on protonix #Dispo cont'd monitoring on tele for barium esophagram when cleared by pulm, await GI recs on d/c will go to SNF, d/w daughter . in agreement pre and post on d/c
[2019-11-07] MEDS: ALBUTEROL SO4 2.5/IPRATROPIUM 0.5 INH SOL 3 ML VIAL.NEB. NEB SCH ×2 (16:21→21:20)
--- NOTE | 2019-11-07 17:40 | PN ---
Teaching Attending Note Name of Resident: Kisha Morales ATTENDING PHYSICIAN STATEMENT I saw and evaluated the patient. I reviewed the resident's note and discussed the case with the resident. I agree with the resident's findings and plan as documented. SUBJECTIVE: No new complaints. Dry cough persists. OBJECTIVE: Vital Signs Period Temp Pulse Resp BP Sys/Brewer Pulse Ox Last 24 Hr 97.9 F-98.2 F 70-87 18-20 109-145/51-73 95-96 HEART: Irregular LUNGS: Clear ABDOMEN: Soft, non-tender, non-distended, normal BS EXTREMITIES: No edema Laboratory Results - last 24 hr 11/03/19 11/07/19 11/07/19 12:10 05:10 05:10 WBC 6.4 RBC 3.49 L Hgb 11.5 Hct 34.8 MCV 99.5 H MCH 32.9 MCHC 33.1 RDW 16.2 H Plt Count 311 MPV 7.7 Absolute Neuts (auto) 4.8 Neutrophils % 74.4 Lymphocytes % 9.9 Monocytes % 11.8 H Eosinophils % 3.3 Basophils % 0.6 Nucleated RBC % 0 Sodium 133 L Potassium 4.2 Chloride 100 Carbon Dioxide 26 Anion Gap 7 L BUN 7.8 Creatinine 0.5 L Est GFR (CKD-EPI)AfAm 101.57 Est GFR (CKD-EPI)NonAf 87.64 Random Glucose 87 Calcium 8.5 Phosphorus 3.1 Magnesium 1.7 L TB Test (QFT) Nil 0.36 TB Test (QFT) Mitogen 6.16 TB Test (QFT) Antigen 0.48 TB Test (QFT) Negative TB Positive Criteria Current Medications Generic Name Dose Route Start Last Admin Trade Name Freq PRN Reason Stop Dose Admin Acetaminophen 650 mg 11/02/19 10:31 11/07/19 06:56 Tylenol - PO 650 mg Q6H PRN Administration PAIN LEVEL 6-10 Albuterol Sulfate 1 amp 11/02/19 13:19 Ventolin 0.083% Nebulizer Soln - NEB Q4H PRN SHORT OF BREATH/WHEEZING Albuterol/Ipratropium 1 amp 11/07/19 16:00 11/07/19 16:21 Duoneb - NEB 1 amp RQID LAVINIA Administration Benzocaine 1 applic 11/02/19 20:26 11/02/19 22:34 Americaine Ointment - [place] 1 applic PRN PRN Administration HEMORRHOIDS Benzocaine/Menthol 1 each 10/31/19 03:50 10/31/19 04:39 Cepacol Lozenge - MM 1 each PRN PRN Administration SORE THROAT Carvedilol 3.125 mg 10/31/19 10:00 11/07/19 09:26 Coreg - PO 3.125 mg BID LAVINIA Administration Dabigatran 75 mg 10/31/19 10:00 11/07/19 09:26 Pradaxa - PO 75 mg BID L[facility]INIA Administration Dronabinol 2.5 mg 11/07/19 10:00 11/07/19 10:41 Marinol - PO 2.5 mg DAILY L[facility]IA Administration Sodium Chloride 1,000 mls @ 42 mls/hr 10/30/19 22:30 11/06/19 22:15 Normal Saline - IV 42 mls/hr ASDIR L[facility]INIA Administration Ceftriaxone Sodium 1 gm/ 50 mls @ 100 mls/hr 10/31/19 20:00 11/07/19 09:25 Dextrose IVPB 100 mls/hr DAILY L[facility]INIA Administration Protocol Magnesium Oxide 400 mg 11/07/19 22:00 Mag-Ox - PO 11/09/19 10:00 BID LAVINIA Mirtazapine 15 mg 10/31/19 22:00 11/06/19 22:12 Remeron - PO 15 mg HS LAVINIA Administration Ondansetron HCl 4 mg 11/03/19 11:30 11/03/19 12:04 Zofran Injection IVPUSH 4 mg Q6H PRN Administration NAUSEA Pantoprazole Sodium 40 mg 10/31/19 16:00 11/07/19 09:26 Protonix - PO 40 mg DAILY L[facility]INIA Administration Tiotropium [place] 2 puff 10/31/19 10:00 11/07/19 09:26 Spiriva Respimat IH 2 puff DAILY [facility]IA Administration ASSESSMENT AND PLAN: This is an 84 year old woman with a history of HTN, atrial fib, chronic diastolic heart failure, COPD, pulm HTN, breast cancer and lumpectomy who presented to the ED with progressive weakness, fatigue, dysphagia, loss of appetite, and weight loss 1. Pneumonia, possible chronic atypical Mycobacterial infection - Continue ceftriaxone (day 8) - AFB smear negative x1, 2 pending - Quantiferon negative - Oxygen to maintain saturation >90% 2. COPD, chronic bronchitis - Continue Spiriva, albuterol as needed, O2 as needed 3. Dysphagia - Tolerating diet - Modified barium swallow shows normal swallowing - GI recommends barium espophagram 4. E. coli UTI - Continue ceftriaxone 5. Atrial fibrillation, permanent - Rate controlled - Continue Coreg, Pradaxa - Digoxin discontinued 6. HTN - Continue Coreg - Lasix held secondary to dehydration 7. Chronic diastolic heart failure - Stable - Lasix held secondary to dehydration 8. Pulmonary HTN 9. History of breast cancer, lumpectomy 10. Disposition - Plan for discharge to SNF
[2019-11-07] MEDS: MAGNESIUM OXIDE 400 MG TABLET (FP) PO SCH (21:35)
[2019-11-07] MEDS: MIRTAZAPINE 15 MG TABLET (FP) PO SCH (21:36)
[2019-11-08 07:15] LABS: BASO % 0.7 % (0-2.0); EOS % 3.9 % (0-4.5); HEMATOCRIT 31.8 % (32.4-45.2); HEMOGLOBIN 10.7 GM/dL (10.7-15.3); LYMPH % 9.7 % (8-40); MCH 33.1 pg (25.7-33.7); MCHC 33.5 g/dl (32.0-36.0); MEAN CELL VOLUME 98.7 fl (80-96); MEAN PLT VOLUME 7.5 fl (7.5-11.1); MONO % 14.6 % (3.8-10.2); NEUT % 71.1 % (42.8-82.8); PLATELET COUNT 281 K/MM3 (134-434); RBC 3.22 M/mm3 (3.60-5.2); RDW 16.6 % (11.6-15.6)
[2019-11-08 08:09] LABS: BLOOD UREA NITROGEN 8.7 mg/dL (7-18); CALCIUM 8.4 mg/dL (8.5-10.1); CREATININE 0.5 mg/dL (0.55-1.3); MAGNESIUM 1.9 mg/dL (1.8-2.4); PHOSPHOROUS 3.1 mg/dL (2.5-4.9); POTASSIUM 4.2 mmol/L (3.5-5.1)
[2019-11-08] MEDS ORDERED: cefTRIAXone SODIUM 1 GM VIAL ONE (09:07)
[2019-11-08] MEDS ORDERED: DEXTROSE 5%-WATER - 50 ML IVPB ONE (09:07)
[2019-11-08] MEDS: MAGNESIUM OXIDE 400 MG TABLET (FP) PO SCH ×2 (09:18→21:41)
[2019-11-08] MEDS: CARVEDILOL 3.125 MG TABLET (FP) PO SCH ×2 (09:18→21:41)
[2019-11-08] MEDS: PANTOPRAZOLE 40 MG TABLET (FP) PO SCH (09:18)
[2019-11-08] MEDS: DRONABINOL 2.5 MG CAPSULE PO SCH (09:18)
[2019-11-08] MEDS: DABIGATRAN ETEXILATE MESYLATE 75 MG CAPSULE PO SCH ×2 (09:18→21:41)
[2019-11-08] MEDS: ALBUTEROL SO4 2.5/IPRATROPIUM 0.5 INH SOL 3 ML VIAL.NEB. NEB SCH ×4 (09:19→21:15)
[2019-11-08] MEDS: CEFTRIAXONE 1 GM in DEXTROSE 5%-WATER - 50 ML IVPB SCH (09:22)
[2019-11-08] MEDS: TIOTROPIUM BROMIDE 2.5 MCG (SPIRIVA) RESPIMAT INHALER IH SCH (09:22)
--- NOTE | 2019-11-08 11:14 | EKG ---
Test Reason : Blood Pressure : / mmHG Vent. Rate : 095 BPM Atrial Rate : 312 BPM P-R Int : 000 ms QRS Dur : 088 ms QT Int : 364 ms P-R-T Axes : 000 -12 185 degrees QTc Int : 457 ms ATRIAL FIBRILLATION ABNORMAL ECG WHEN COMPARED WITH ECG OF 30-OCT-2019 16:48, T WAVE INVERSION MORE EVIDENT IN ANTEROLATERAL LEADS Confirmed by RONNELL DAVIS MD ([id number]) on 11/08/2019 11:13:59 AM Referred By: Vanessa BENNETT Confirmed By:RONNELL DAVIS MD
[2019-11-08] MEDS ORDERED: PT OWN MED DRAWER 7, Y5N ONE ×2 (11:18→20:07)
--- NOTE | 2019-11-08 12:34 | PN ---
Progress Note, Physician History of Present Illness: The patient is an 84 year old white female, with a significant past medical history of HTN, Pulmonary HTN, COPD (bronchiectasis; not on home O2), diastolic CHF, Afib (on Coreg, digoxin, ; Pradaxa), Breast CA (s/p lumpectomy), Colitis, Diverticulitis, Chronic UTIs, and Insomnia, who presents to the emergency department with progressively worsening shortness of breath, weakness, and dysphagia. As per patient, over the past month and a half she has been experiencing increasing dysphagia with solids, nausea, shortness of breath, and productive cough. Aid at bedside notes that she has been requiring more assistance lately. Patient has not been eating much and notes 2 recent falls. Patient was advised by her PCP to report to the ED for further evaluation. Pt is concerned she has lost so much weight in the past year. She denies recent fevers, chills, headache or dizziness. She denies recent vomiting, diarrhea or constipation. She denies recent dysuria, frequency, urgency or hematuria. She denies recent chest pain or palpitations. Allergies: Meperidine HCl, Lactose Past surgical history: Appendectomy, cholecystectomy. Social history: Nonsmoker. Denies EtOH use and recreational drug use. Primary Care Physician: Dr. Haines - Current Medication List Current Medications: Active Medications Acetaminophen (Tylenol -) 650 mg PO Q6H PRN PRN Reason: PAIN LEVEL 6-10 Last Admin: 11/07/19 06:56 Dose: 650 mg Albuterol Sulfate (Ventolin 0.083% Nebulizer Soln -) 1 amp NEB Q4H PRN PRN Reason: SHORT OF BREATH/WHEEZING Albuterol/Ipratropium (Duoneb -) 1 amp NEB RQID [facility] Last Admin: 11/08/19 09:19 Dose: 1 amp Benzocaine (Americaine Ointment -) 1 applic [place] PRN PRN PRN Reason: HEMORRHOIDS Last Admin: 11/02/19 22:34 Dose: 1 applic Benzocaine/Menthol (Cepacol Lozenge -) 1 each MM PRN PRN PRN Reason: SORE THROAT Last Admin: 10/31/19 04:39 Dose: 1 each Carvedilol (Coreg -) 3.125 mg PO BID [facility] Last Admin: 01/08/20 09:18 Dose: 3.125 mg Dabigatran (Pradaxa -) 75 mg PO BID [facility] Last Admin: 11/08/19 09:18 Dose: 75 mg Dronabinol (Marinol -) 2.5 mg PO DAILY [facility] Last Admin: 11/08/19 09:18 Dose: 2.5 mg Ceftriaxone Sodium 1 gm/ (Dextrose) 50 mls @ 100 mls/hr IVPB DAILY [facility]; Protocol Last Admin: 11/08/19 09:22 Dose: 100 mls/hr Magnesium Oxide (Mag-Ox -) 400 mg PO BID [facility] Stop: 11/09/19 10:00 Last Admin: 11/08/19 09:18 Dose: 400 mg Mirtazapine (Remeron -) 15 mg PO HS [facility] Last Admin: 11/07/19 21:36 Dose: 15 mg Ondansetron HCl (Zofran Injection) 4 mg IVPUSH Q6H PRN PRN Reason: NAUSEA Last Admin: 11/03/19 12:04 Dose: 4 mg Pantoprazole Sodium (Protonix -) 40 mg PO DAILY [facility] Last Admin: 11/08/19 09:18 Dose: 40 mg Tiotropium [place] (Spiriva Respimat) 2 puff IH DAILY [facility] Last Admin: 11/08/19 09:22 Dose: 2 puff - Objective Vital Signs: Vital Signs Temperature 97.2 F L 11/08/19 09:00 Pulse Rate 80 11/08/19 09:00 Respiratory Rate 22 H 11/08/19 09:00 Blood Pressure 126/73 11/08/19 09:00 O2 Sat by Pulse Oximetry (%) 94 L 11/08/19 09:00 Eyes: Yes: WNL, Conjunctiva Clear, EOM Intact HENT: Yes: WNL, Atraumatic, Normocephalic Neck: Yes: WNL, Supple, Trachea Midline Cardiovascular: Yes: Pulse Irregular, S1, S2 Respiratory: Yes: WNL, Regular, CTA Bilaterally Gastrointestinal: Yes: WNL, Normal Bowel Sounds Genitourinary: Yes: WNL Musculoskeletal: Yes: WNL Extremities: Yes: WNL Edema: No Integumentary: Yes: WNL Neurological: Yes: WNL, Alert, Oriented ...Motor Strength: WNL Psychiatric: Yes: WNL Labs: CBC, BMP 11/08/19 05:38 11/08/19 05:38 Assessment/Plan - Problems (1) Acute on chronic diastolic CHF (congestive heart failure) Assessment/Plan: On carvedilol. f/u CXR. F/u BUN/Cr, electrolytes, dialy weight, Is and Os. Code(s): I50.33 - ACUTE ON CHRONIC DIASTOLIC (CONGESTIVE) HEART FAILURE (2) COPD (chronic obstructive pulmonary disease) Assessment/Plan: CT: bronchiectasis. moderately severe pulmonary HTN. F/u with shell mold bonder. Code(s): J44.9 - CHRONIC OBSTRUCTIVE PULMONARY DISEASE, UNSPECIFIED (3) Dysphagia Code(s): R13.10 - DYSPHAGIA, UNSPECIFIED Qualifiers: Dysphagia type: unspecified Qualified Code(s): R13.10 - Dysphagia, unspecified (4) Failure to thrive Code(s): FKR5411 - Qualifiers: Failure to thrive age range: in adult Qualified Code(s): R62.7 - Adult failure to thrive (5) Atrial fibrillation Assessment/Plan: continue carvedilol for HR and BP control. On Pradaxa for anticoagulation. F/u EKG, telemetry. TSH WNL (11/19). K and Mg low: replete. (6) Pulmonary HTN Assessment/Plan: moderately severe by ECHO. Bronchiectasis O2, bronchodilators per shell mold bonder. Code(s): I27.20 - PULMONARY HYPERTENSION, UNSPECIFIED (7) Hypokalemia Assessment/Plan: repleted, and keep 4.0-4.5 Code(s): E87.6 - HYPOKALEMIA (8) Hypomagnesemia Assessment/Plan: replete, and keep level 2.0-2.4 Start mag oxide 400 mg bid x 2 days, then reassess. Code(s): E83.42 - HYPOMAGNESEMIA (9) PTB (pulmonary tuberculosis) Assessment/Plan: on airborne isolation while PTB is being ruled out; AFB negative x 2. Code(s): A15.0 - TUBERCULOSIS OF LUNG (10) Weight loss Assessment/Plan: Pt has lost nearly 20 lbs in the past 4 months. [place] in progress. TB being ruled out.; AFB negative x 2 presently. Encourage PO solids and liquids; f/u with blasting helper (ot says she takes Ensure and/or Boost at home; c/o hospital offering of nutrition liquid as "too dense and small"). Code(s): R63.4 - ABNORMAL WEIGHT LOSS
--- NOTE | 2019-11-08 14:11 | PN ---
Teaching Attending Note Name of Resident: Kisha Morales ATTENDING PHYSICIAN STATEMENT I saw and evaluated the patient. I reviewed the resident's note and discussed the case with the resident. I agree with the resident's findings and plan as documented. SUBJECTIVE: No complaints. OBJECTIVE: Vital Signs Period Temp Pulse Resp BP Sys/Brewer Pulse Ox Last 24 Hr 97.2 F-98.1 F 78-92 20-22 101-136/57-87 94-97 HEART: Irregular LUNGS: Few rhonchi ABDOMEN: Soft, non-tender, non-distended, normal BS EXTREMITIES: No edema Laboratory Results - last 24 hr 11/08/19 11/08/19 05:38 05:38 WBC 5.0 RBC 3.22 L Hgb 10.7 Hct 31.8 L MCV 98.7 H MCH 33.1 MCHC 33.5 RDW 16.6 H Plt Count 281 MPV 7.5 Absolute Neuts (auto) 3.5 Neutrophils % 71.1 Lymphocytes % 9.7 Monocytes % 14.6 H Eosinophils % 3.9 Basophils % 0.7 Nucleated RBC % 0 Sodium 135 L Potassium 4.2 Chloride 100 Carbon Dioxide 26 Anion Gap 8 BUN 8.7 Creatinine 0.5 L Est GFR (CKD-EPI)AfAm 101.57 Est GFR (CKD-EPI)NonAf 87.64 Random Glucose 82 Calcium 8.4 L Phosphorus 3.1 Magnesium 1.9 Current Medications Generic Name Dose Route Start Last Admin Trade Name Freq PRN Reason Stop Dose Admin Acetaminophen 650 mg 11/02/19 10:31 11/07/19 06:56 Tylenol - PO 650 mg Q6H PRN Administration PAIN LEVEL 6-10 Albuterol Sulfate 1 amp 11/02/19 13:19 Ventolin 0.083% Nebulizer Soln - NEB Q4H PRN SHORT OF BREATH/WHEEZING Albuterol/Ipratropium 1 amp 11/07/19 16:00 11/08/19 12:20 Duoneb - NEB 1 amp RQID L[facility]INIA Administration Benzocaine 1 applic 11/02/19 20:26 11/02/19 22:34 Americaine Ointment - [place] 1 applic PRN PRN Administration HEMORRHOIDS Benzocaine/Menthol 1 each 10/31/19 03:50 10/31/19 04:39 Cepacol Lozenge - MM 1 each PRN PRN Administration SORE THROAT Carvedilol 3.125 mg 10/31/19 10:00 11/08/19 09:18 Coreg - PO 3.125 mg BID [facility]IA Administration Dabigatran 75 mg 10/31/19 10:00 11/08/19 09:18 Pradaxa - PO 75 mg BID [facility] Administration Dronabinol 2.5 mg 11/07/19 10:00 11/08/19 09:18 Marinol - PO 2.5 mg DAILY [facility]IA Administration Ceftriaxone Sodium 1 gm/ 50 mls @ 100 mls/hr 10/31/19 20:00 11/08/19 09:22 Dextrose IVPB 100 mls/hr DAILY L[facility]IA Administration Protocol Magnesium Oxide 400 mg 11/07/19 22:00 11/08/19 09:18 Mag-Ox - PO 11/09/19 10:00 400 mg BID LAVINIA Administration Mirtazapine 15 mg 10/31/19 22:00 11/07/19 21:36 Remeron - PO 15 mg HS L[facility]IA Administration Ondansetron HCl 4 mg 11/03/19 11:30 11/03/19 12:04 Zofran Injection IVPUSH 4 mg Q6H PRN Administration NAUSEA Pantoprazole Sodium 40 mg 10/31/19 16:00 11/08/19 09:18 Protonix - PO 40 mg DAILY LAVINIA Administration Tiotropium [place] 2 puff 10/31/19 10:00 11/08/19 09:22 Spiriva Respimat IH 2 puff DAILY LAVINIA Administration ASSESSMENT AND PLAN: This is an 84 year old woman with a history of HTN, atrial fib, chronic diastolic heart failure, COPD, pulm HTN, breast cancer and lumpectomy who presented to the ED with progressive weakness, fatigue, dysphagia, loss of appetite, and weight loss 1. Pneumonia, possible chronic atypical Mycobacterial infection - Continue ceftriaxone (day 9) - AFB smear negative x1, 2 pending - Quantiferon negative - Oxygen to maintain saturation >90% 2. COPD, chronic bronchitis - Continue Spiriva, albuterol as needed, O2 as needed 3. Dysphagia - Tolerating diet - Modified barium swallow shows normal swallowing - GI recommends barium espophagram 4. E. coli UTI - Continue ceftriaxone 5. Atrial fibrillation, permanent - Rate controlled - Continue Coreg, Pradaxa - Digoxin discontinued 6. HTN - Continue Coreg - Lasix held secondary to dehydration 7. Chronic diastolic heart failure - Stable - Lasix held secondary to dehydration 8. Pulmonary HTN 9. History of breast cancer, lumpectomy 10. Disposition - Plan for discharge to SNF
--- NOTE | 2019-11-08 14:39 | PN ---
Progress Note (short form) - Note Progress Note: PULMONARY Denies shortness of breath but with nonproductive cough. Vital Signs Period Temp Pulse Resp BP Sys/Brewer Pulse Ox Last 24 Hr 97.2 F-98.1 F 78-92 20-22 101-136/57-87 94-97 Gen: NAD at rest Heart: RRR Lung: scattered rhonchi Abd: soft, nontender Ext: no edema CBC, BMP 11/08/19 05:38 11/08/19 05:38 Active Medications Acetaminophen (Tylenol -) 650 mg PO Q6H PRN PRN Reason: PAIN LEVEL 6-10 Last Admin: 11/07/19 06:56 Dose: 650 mg Albuterol Sulfate (Ventolin 0.083% Nebulizer Soln -) 1 amp NEB Q4H PRN PRN Reason: SHORT OF BREATH/WHEEZING Albuterol/Ipratropium (Duoneb -) 1 amp NEB RQID [facility] Last Admin: 11/08/19 12:20 Dose: 1 amp Benzocaine (Americaine Ointment -) 1 applic [place] PRN PRN PRN Reason: HEMORRHOIDS Last Admin: 11/02/19 22:34 Dose: 1 applic Benzocaine/Menthol (Cepacol Lozenge -) 1 each MM PRN PRN PRN Reason: SORE THROAT Last Admin: 10/31/19 04:39 Dose: 1 each Carvedilol (Coreg -) 3.125 mg PO BID [facility] Last Admin: 11/08/19 09:18 Dose: 3.125 mg Dabigatran (Pradaxa -) 75 mg PO BID [facility] Last Admin: 11/08/19 09:18 Dose: 75 mg Dronabinol (Marinol -) 2.5 mg PO DAILY [facility] Last Admin: 11/08/19 09:18 Dose: 2.5 mg Ceftriaxone Sodium 1 gm/ (Dextrose) 50 mls @ 100 mls/hr IVPB DAILY [facility]; Protocol Last Admin: 11/08/19 09:22 Dose: 100 mls/hr Magnesium Oxide (Mag-Ox -) 400 mg PO BID [facility] Stop: 11/09/19 10:00 Last Admin: 11/08/19 09:18 Dose: 400 mg Mirtazapine (Remeron -) 15 mg PO HS [facility] Last Admin: 11/07/19 21:36 Dose: 15 mg Ondansetron HCl (Zofran Injection) 4 mg IVPUSH Q6H PRN PRN Reason: NAUSEA Last Admin: 11/03/19 12:04 Dose: 4 mg Pantoprazole Sodium (Protonix -) 40 mg PO DAILY [facility] Last Admin: 11/08/19 09:18 Dose: 40 mg Tiotropium [place] (Spiriva Respimat) 2 puff IH DAILY [facility] Last Admin: 11/08/19 09:22 Dose: 2 puff A/P Failure to Thrive Pneumonia Suspect Chronic Atypical Mycobacterial Disease Hyponatremia Atrial Fibrillation LV Diastolic Dysfunction COPD Chronic Bronchitis h/o Breast Ca R pleural effusion - on empiric antibiotics - f/u sputum AFB - inhaled bronchodilators - rate control - continue anticoagulation - O2 as needed - d/c planning Problem List - Problems (1) Failure to thrive Code(s): [id number] - Qualifiers: Failure to thrive age range: in adult Qualified Code(s): R62.7 - Adult failure to thrive
--- NOTE | 2019-11-08 14:52 | PN ---
Progress Note (short form) - Note Progress Note: Hospitalist Medicine Resting in bed. Final AFB (-) x 1, Prelim AFB (-) x 2. Awaiting final. With cough. Would like to return home after hospital stay, but understands that daughter would like her to go to SNF. Endorses mild weight gain "in ounces." For barium esophagram Vitals 11/08/19 14:00 Temperature 98 F Pulse Rate 85 Respiratory 20 Rate Blood Pressure 92/50 L Physical Exam general: resting in bed, in NAD. HEENT: NCAT, PERRLA neck: supple cardio: S1, S2 RRR. no r/m/g pulm: +scattered rhonchi. 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: eclectic doctor 2-12 grossly intact Laboratory Tests 11/03/19 11/08/19 11/08/19 12:10 05:38 05:38 WBC 5.0 Hgb 10.7 Hct 31.8 L Plt Count 281 Sodium 135 L Potassium 4.2 Chloride 100 Carbon Dioxide 26 Anion Gap 8 BUN 8.7 Creatinine 0.5 L Random Glucose 82 Calcium 8.4 L Phosphorus 3.1 Magnesium 1.9 TB Test (QFT) Nil 0.36 TB Test (QFT) Mitogen 6.16 TB Test (QFT) Antigen 0.48 TB Test (QFT) Negative Microbiology 10/30/19 20:10 Urine - Urine Clean Catch Urine Culture - Final Escherichia Coli 10/30/19 00:15 Sputum - Expectorated Gram Stain - Final 10/30/19 00:15 Sputum - Expectorated Sputum Culture - Final NORMAL RESPIRATORY DAMI 11/02/19 11:00 Sputum - Expectorated AFB Smear Concentration - Final 11/01/19 12:10 Blood - Peripheral Venous Blood Culture - Final NO GROWTH AFTER 5 DAYS INCUBATION 11/01/19 12:10 Blood - Peripheral Venous Blood Culture - Final NO GROWTH AFTER 5 DAYS INCUBATION 11/07/19 11:10 Sputum - Expectorated AFB Smear Concentration - Preliminary 11/07/19 11:10 Sputum - Expectorated Mycobacterial Culture - Preliminary 11/04/19 14:30 Sputum - Expectorated AFB Smear Concentration - Preliminary 11/04/19 14:30 Sputum - Expectorated Mycobacterial Culture - Preliminary 11/02/19 11:00 Sputum - Expectorated Mycobacterial Culture - Preliminary Imaging 10/30/19: CXR: since previous (07/2019), progressive congestive changes with upper lobe infiltrates and some pleural fluid with atelectasis at the right base. there is a large heart, sclerotic knob. prominent david, and fluid in the horizontal fissure. 10/30/19: C-spine CT: no fracture. multilevel degenerative joint dz . partially imaged pulm apices again demonstrate chronic pleural thickening and thickened interstitial changes suggestive of COPD. 10/30/19: Head CT: no CT evidence of acute intracranial path. mild periventricular and subcortical chronic microvascular ischemic chanes are seen. no def interval change from previous 07/07/2019. chronic paranasal sinus disease again noted. 10/30/19: modified barium swallow: normal swallowing study. trial of soft, chopped diet and thin liquid, ensure, magic cup, ensure pudding. 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 #Progressive UL infiltrates possible 2/2 CAP vs. TB #hx COPD, chronic bronchitis -keep on airborne isolation until AFBx3 negative and quantiferon negative -thus far, AFB (-) x3 however await final -quant (-) -c/w ceftriaxone (10/31). zithro d/c as would partially tx mycobacterium -c/w NC 02, taper to sat > 90% -IS, spiriva, duonebs RQID, nebs PRN -pulm: Dr. Christiansen #Progressive dysphagia -tolerating PO, clear MBS -f/u official barium esophagram -asp precautions -on protonix -r/o depression; per psych, started on marinol. c/w remeron -GI: Dr. Mensah -Psych: Dr. Gaona #UTI -on ceftriaxone (10/31) -ucx: E.coli (>100,000) puentes-sensitive #Afib on Xarelto -dose adjusted according to weight -no signs of bleeding -rate controlled w/ Coreg, hold dig per cardio -cardio: Dr. Jules #HTN -c/t hold lasix -c/w coreg #HFpEF -not in exacerbation -Cont. BB, , hold Lasix #F/E/N off IVF continue to follow lytes soft diet, w/ supplements (magic cup, ensure, ensure pudding) #PPX DVT: on xarelto GI: on protonix #Dispo cont'd monitoring on tele f/u barium esophagram on d/c will go to SNF, d/w daughter . in agreement pre and post on d/c
[2019-11-08] MEDS: MIRTAZAPINE 15 MG TABLET (FP) PO SCH (21:41)
[2019-11-08 23:29] VITALS: BMI 16.1
[2019-11-09 07:37] LABS: BASO % 0.5 % (0-2.0); EOS % 3.9 % (0-4.5); HEMATOCRIT 32.2 % (32.4-45.2); HEMOGLOBIN 10.8 GM/dL (10.7-15.3); LYMPH % 10.2 % (8-40); MCH 33.3 pg (25.7-33.7); MCHC 33.7 g/dl (32.0-36.0); MEAN CELL VOLUME 98.9 fl (80-96); MEAN PLT VOLUME 7.6 fl (7.5-11.1); MONO % 13.6 % (3.8-10.2); NEUT % 71.8 % (42.8-82.8); PLATELET COUNT 299 K/MM3 (134-434); RBC 3.25 M/mm3 (3.60-5.2); RDW 16.4 % (11.6-15.6); WHITE BLOOD COUNT 5.2 K/mm3 (4.0-10.0)
[2019-11-09 08:05] LABS: BLOOD UREA NITROGEN 8.2 mg/dL (7-18); CALCIUM 8.5 mg/dL (8.5-10.1); CREATININE 0.5 mg/dL (0.55-1.3); MAGNESIUM 1.8 mg/dL (1.8-2.4); PHOSPHOROUS 3.6 mg/dL (2.5-4.9); POTASSIUM 4.5 mmol/L (3.5-5.1)
[2019-11-09] MEDS: ALBUTEROL SO4 2.5/IPRATROPIUM 0.5 INH SOL 3 ML VIAL.NEB. NEB SCH ×4 (09:03→20:45)
[2019-11-09] MEDS ORDERED: cefTRIAXone SODIUM 1 GM VIAL ONE (09:35)
[2019-11-09] MEDS ORDERED: DEXTROSE 5%-WATER - 50 ML IVPB ONE (09:35)
[2019-11-09] MEDS: CEFTRIAXONE 1 GM in DEXTROSE 5%-WATER - 50 ML IVPB SCH (10:55)
[2019-11-09] MEDS: MAGNESIUM OXIDE 400 MG TABLET (FP) PO SCH (10:56)
[2019-11-09] MEDS: PANTOPRAZOLE 40 MG TABLET (FP) PO SCH (10:56)
[2019-11-09] MEDS: DRONABINOL 2.5 MG CAPSULE PO SCH (10:56)
[2019-11-09] MEDS: DABIGATRAN ETEXILATE MESYLATE 75 MG CAPSULE PO SCH ×2 (10:56→22:23)
[2019-11-09] MEDS: CARVEDILOL 3.125 MG TABLET (FP) PO SCH ×2 (10:56→22:23)
[2019-11-09] MEDS: TIOTROPIUM BROMIDE 2.5 MCG (SPIRIVA) RESPIMAT INHALER IH SCH (11:05)
--- NOTE | 2019-11-09 11:22 | PN ---
Progress Note (short form) - Note Progress Note: Resting in NAD. Some non-productive cough. No acute events overnight. Intake & Output 11/06/19 11/07/19 11/08/19 11/09/19 23:59 23:59 23:59 23:59 Intake Total 2342 1840 770 210 Output Total 300 Balance 2342 1840 770 -90 Weight 90 lb 6.4 oz 91 lb 3.2 oz 90 lb 8 oz 88 lb 9.6 oz Last Vital Signs Temp Pulse Resp BP Pulse Ox 97.8 F 85 22 H 136/76 97 11/09/19 10:00 11/09/19 10:00 11/09/19 10:00 11/09/19 10:00 11/08/19 21:00 Active Medications Acetaminophen (Tylenol -) 650 mg PO Q6H PRN PRN Reason: PAIN LEVEL 6-10 Last Admin: 11/07/19 06:56 Dose: 650 mg Albuterol Sulfate (Ventolin 0.083% Nebulizer Soln -) 1 amp NEB Q4H PRN PRN Reason: SHORT OF BREATH/WHEEZING Albuterol/Ipratropium (Duoneb -) 1 amp NEB RQID [facility] Last Admin: 11/09/19 09:03 Dose: 1 amp Benzocaine (Americaine Ointment -) 1 applic [place] PRN PRN PRN Reason: HEMORRHOIDS Last Admin: 11/02/19 22:34 Dose: 1 applic Benzocaine/Menthol (Cepacol Lozenge -) 1 each MM PRN PRN PRN Reason: SORE THROAT Last Admin: 10/31/19 04:39 Dose: 1 each Carvedilol (Coreg -) 3.125 mg PO BID [facility] Last Admin: 11/09/19 10:56 Dose: 3.125 mg Dabigatran (Pradaxa -) 75 mg PO BID [facility] Last Admin: 11/09/19 10:56 Dose: 75 mg Dronabinol (Marinol -) 2.5 mg PO DAILY [facility] Last Admin: 11/09/19 10:56 Dose: 2.5 mg Ceftriaxone Sodium 1 gm/ (Dextrose) 50 mls @ 100 mls/hr IVPB DAILY [facility]; Protocol Last Admin: 11/09/19 10:55 Dose: 100 mls/hr Mirtazapine (Remeron -) 15 mg PO HS [facility] Last Admin: 11/08/19 21:41 Dose: 15 mg Ondansetron HCl (Zofran Injection) 4 mg IVPUSH Q6H PRN PRN Reason: NAUSEA Last Admin: 11/03/19 12:04 Dose: 4 mg Pantoprazole Sodium (Protonix -) 40 mg PO DAILY [facility] Last Admin: 11/09/19 10:56 Dose: 40 mg Tiotropium [place] (Spiriva Respimat) 2 puff IH DAILY [facility] Last Admin: 11/09/19 11:05 Dose: 2 puff Constitutional: Yes: NAD, Thin Eyes: Yes: WNL HENT: Yes: WNL Neck: Yes: WNL Cardiovascular: Yes: Pulse Irregular, S1, S2 Respiratory: Yes: Diminished Gastrointestinal: Yes: Normal Bowel Sounds, Soft Extremities: Yes: WNL Edema: No Labs: Laboratory Results - last 24 hr 11/09/19 11/09/19 05:40 05:40 WBC 5.2 RBC 3.25 L Hgb 10.8 Hct 32.2 L MCV 98.9 H MCH 33.3 MCHC 33.7 RDW 16.4 H Plt Count 299 MPV 7.6 Absolute Neuts (auto) 3.7 Neutrophils % 71.8 Lymphocytes % 10.2 Monocytes % 13.6 H Eosinophils % 3.9 Basophils % 0.5 Nucleated RBC % 0 Sodium 133 L Potassium 4.5 Chloride 99 Carbon Dioxide 29 Anion Gap 5 L BUN 8.2 Creatinine 0.5 L Est GFR (CKD-EPI)AfAm 101.57 Est GFR (CKD-EPI)NonAf 87.64 Random Glucose 82 Calcium 8.5 Phosphorus 3.6 Magnesium 1.8 Problem List - Problems (1) Failure to thrive Code(s): FHJ0768 - Qualifiers: Failure to thrive age range: in adult Qualified Code(s): R62.7 - Adult failure to thrive (3) Diastolic heart failure Code(s): I50.30 - UNSPECIFIED DIASTOLIC (CONGESTIVE) HEART FAILURE Qualifiers: Heart failure chronicity: chronic heart failure (4) Moderate to severe pulmonary hypertension Code(s): I27.20 - PULMONARY HYPERTENSION, UNSPECIFIED (6) Breast cancer Code(s): C50.919 - MALIGNANT NEOPLASM OF UNSP SITE OF UNSPECIFIED FEMALE BREAST Assessment/Plan Failure to Thrive Pneumonia 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
--- NOTE | 2019-11-09 13:26 | PN ---
Progress Note, Physician Chief Complaint: Pt A&Ox3; weak; no chest pain or dyspnea. History of Present Illness: The patient is an 84 year old white female, with a significant past medical history of HTN, Pulmonary HTN, COPD (bronchiectasis; not on home O2), diastolic CHF, Afib (on Coreg, digoxin, ; Pradaxa), Breast CA (s/p lumpectomy), Colitis, Diverticulitis, Chronic UTIs, and Insomnia, who presents to the emergency department with progressively worsening shortness of breath, weakness, and dysphagia. As per patient, over the past month and a half she has been experiencing increasing dysphagia with solids, nausea, shortness of breath, and productive cough. Aid at bedside notes that she has been requiring more assistance lately. Patient has not been eating much and notes 2 recent falls. Patient was advised by her PCP to report to the ED for further evaluation. Pt is concerned she has lost so much weight in the past year. She denies recent fevers, chills, headache or dizziness. She denies recent vomiting, diarrhea or constipation. She denies recent dysuria, frequency, urgency or hematuria. She denies recent chest pain or palpitations. Allergies: Meperidine HCl, Lactose Past surgical history: Appendectomy, cholecystectomy. Social history: Nonsmoker. Denies EtOH use and recreational drug use. Primary Care Physician: Dr. Haines Power House Engineer: Dr. Jules; ?Dr. Egan - Current Medication List Current Medications: Active Medications Acetaminophen (Tylenol -) 650 mg PO Q6H PRN PRN Reason: PAIN LEVEL 6-10 Last Admin: 11/07/19 06:56 Dose: 650 mg Albuterol Sulfate (Ventolin 0.083% Nebulizer Soln -) 1 amp NEB Q4H PRN PRN Reason: SHORT OF BREATH/WHEEZING Albuterol/Ipratropium (Duoneb -) 1 amp NEB RQID [facility] Last Admin: 11/09/19 12:01 Dose: 1 amp Benzocaine (Americaine Ointment -) [address] PRN PRN PRN Reason: HEMORRHOIDS Last Admin: 11/02/19 22:34 Dose: 1 applic Benzocaine/Menthol (Cepacol Lozenge -) 1 each MM PRN PRN PRN Reason: SORE THROAT Last Admin: 10/31/19 04:39 Dose: 1 each Carvedilol (Coreg -) 3.125 mg PO BID [facility] Last Admin: 11/09/19 10:56 Dose: 3.125 mg Dabigatran (Pradaxa -) 75 mg PO BID [facility] Last Admin: 11/09/19 10:56 Dose: 75 mg Dronabinol (Marinol -) 2.5 mg PO DAILY [facility] Last Admin: 11/09/19 10:56 Dose: 2.5 mg Mirtazapine (Remeron -) 15 mg PO HS [facility] Last Admin: 11/08/19 21:41 Dose: 15 mg Ondansetron HCl (Zofran Injection) 4 mg IVPUSH Q6H PRN PRN Reason: NAUSEA Last Admin: 11/03/19 12:04 Dose: 4 mg Pantoprazole Sodium (Protonix -) 40 mg PO DAILY [facility] Last Admin: 11/09/19 10:56 Dose: 40 mg Tiotropium [place] (Spiriva Respimat) 2 puff IH DAILY [facility] Last Admin: 11/09/19 11:05 Dose: 2 puff - Objective Vital Signs: Vital Signs Temperature 97.8 F 11/09/19 10:00 Pulse Rate 85 11/09/19 10:00 Respiratory Rate 22 H 11/09/19 10:00 Blood Pressure 136/76 11/09/19 10:00 O2 Sat by Pulse Oximetry (%) 93 L 11/09/19 09:00 Constitutional: Yes: Cachectic Labs: CBC, BMP 11/09/19 05:40 11/09/19 05:40 Problem List - Problems (1) Acute on chronic diastolic CHF (congestive heart failure) Assessment/Plan: On carvedilol. +JVD CXR: atelectasis; "CT may be of help" (earlier CT showed bronchiectasis) F/u BUN/Cr, electrolytes, dialy weight, Is and Os. Code(s): I50.33 - ACUTE ON CHRONIC DIASTOLIC (CONGESTIVE) HEART FAILURE (2) COPD (chronic obstructive pulmonary disease) Assessment/Plan: CT: bronchiectasis. moderately severe pulmonary HTN. F/u with message and delivery service pricer. Code(s): J44.9 - CHRONIC OBSTRUCTIVE PULMONARY DISEASE, UNSPECIFIED (3) Dysphagia Code(s): R13.10 - DYSPHAGIA, UNSPECIFIED Qualifiers: Dysphagia type: unspecified Qualified Code(s): R13.10 - Dysphagia, unspecified (4) Failure to thrive Code(s): [id number] - Qualifiers: Failure to thrive age range: in adult Qualified Code(s): R62.7 - Adult failure to thrive (5) Atrial fibrillation Assessment/Plan: continue carvedilol for HR and BP control. On Pradaxa for anticoagulation. F/u EKG, telemetry. TSH WNL (11/19). K and Mg low: replete. (6) Pulmonary HTN Assessment/Plan: moderately severe pulmonary HTN by ECHO. Bronchiectasis O2, bronchodilators per message and delivery service pricer. Code(s): I27.20 - PULMONARY HYPERTENSION, UNSPECIFIED (7) Hypokalemia Assessment/Plan: repleted, and keep 4.0-4.5 Code(s): E87.6 - HYPOKALEMIA (8) Hypomagnesemia Assessment/Plan: repleted x 2 days: now WNL; keep level 2.0-2.4 Code(s): E83.42 - HYPOMAGNESEMIA (9) PTB (pulmonary tuberculosis) Code(s): A15.0 - TUBERCULOSIS OF LUNG (10) Weight loss Code(s): R63.4 - ABNORMAL WEIGHT LOSS
--- NOTE | 2019-11-09 14:13 | PN ---
Teaching Attending Note Name of Resident: Kisha Morales ATTENDING PHYSICIAN STATEMENT I saw and evaluated the patient. I reviewed the resident's note and discussed the case with the resident. I agree with the resident's findings and plan as documented. SUBJECTIVE: Seen and examined at bedside. Feeling better. Denies SOB or chest pain. +cough OBJECTIVE: Vital Signs - 24 hr 11/08/19 11/08/19 11/08/19 17:00 21:00 22:00 Temperature 98.7 F 98.1 F Pulse Rate 97 H 80 Respiratory 20 20 20 Rate Blood Pressure 112/63 103/54 L O2 Sat by Pulse 97 Oximetry (%) 11/09/19 11/09/19 11/09/19 02:00 06:00 09:00 Temperature 97.8 F 97.9 F Pulse Rate 76 74 Respiratory 20 20 22 H Rate Blood Pressure 113/59 L 130/70 O2 Sat by Pulse 93 L Oximetry (%) 11/09/19 10:00 Temperature 97.8 F Pulse Rate 85 Respiratory 22 H Rate Blood Pressure 136/76 O2 Sat by Pulse Oximetry (%) PE: Gen: NAD, pale CVS: irreg irreg Lungs: cta b/l, unlabored Abdomen: soft, ntnd, nabs Ext: no cce Current Medications Generic Name Dose Route Start Last Admin Trade Name Freq PRN Reason Stop Dose Admin Acetaminophen 650 mg 11/02/19 10:31 11/07/19 06:56 Tylenol - PO 650 mg Q6H PRN Administration PAIN LEVEL 6-10 Albuterol Sulfate 1 amp 11/02/19 13:19 Ventolin 0.083% Nebulizer Soln - NEB Q4H PRN SHORT OF BREATH/WHEEZING Albuterol/Ipratropium 1 amp 11/07/19 16:00 11/09/19 12:01 Duoneb - NEB 1 amp RQID [facility] Administration Benzocaine 1 applic 11/02/19 20:26 11/02/19 22:34 Americaine Ointment - [place] 1 applic PRN PRN Administration HEMORRHOIDS Benzocaine/Menthol 1 each 10/31/19 03:50 10/31/19 04:39 Cepacol Lozenge - MM 1 each PRN PRN Administration SORE THROAT Carvedilol 3.125 mg 10/31/19 10:00 11/09/19 10:56 Coreg - PO 3.125 mg BID [facility] Administration Dabigatran 75 mg 10/31/19 10:00 11/09/19 10:56 Pradaxa - PO 75 mg BID [facility] Administration Dronabinol 2.5 mg 11/07/19 10:00 11/09/19 10:56 Marinol - PO 2.5 mg DAILY [facility] Administration Mirtazapine 15 mg 10/31/19 22:00 11/08/19 21:41 Remeron - PO 15 mg HS [facility] Administration Ondansetron HCl 4 mg 11/03/19 11:30 11/03/19 12:04 Zofran Injection IVPUSH 4 mg Q6H PRN Administration NAUSEA Pantoprazole Sodium 40 mg 10/31/19 16:00 11/09/19 10:56 Protonix - PO 40 mg DAILY [facility] Administration Tiotropium [place] 2 puff 10/31/19 10:00 11/09/19 11:05 Spiriva Respimat IH 2 puff DAILY [facility] Administration Laboratory Results - last 24 hr 11/09/19 11/09/19 05:40 05:40 WBC 5.2 RBC 3.25 L Hgb 10.8 Hct 32.2 L MCV 98.9 H MCH 33.3 MCHC 33.7 RDW 16.4 H Plt Count 299 MPV 7.6 Absolute Neuts (auto) 3.7 Neutrophils % 71.8 Lymphocytes % 10.2 Monocytes % 13.6 H Eosinophils % 3.9 Basophils % 0.5 Nucleated RBC % 0 Sodium 133 L Potassium 4.5 Chloride 99 Carbon Dioxide 29 Anion Gap 5 L BUN 8.2 Creatinine 0.5 L Est GFR (CKD-EPI)AfAm 101.57 Est GFR (CKD-EPI)NonAf 87.64 Random Glucose 82 Calcium 8.5 Phosphorus 3.6 Magnesium 1.8 Microbiology 11/07/19 11:10 Sputum - Expectorated AFB Smear Concentration - Preliminary 11/07/19 11:10 Sputum - Expectorated Mycobacterial Culture - Preliminary 11/01/19 12:10 Blood - Peripheral Venous Blood Culture - Final NO GROWTH AFTER 5 DAYS INCUBATION 11/01/19 12:10 Blood - Peripheral Venous Blood Culture - Final NO GROWTH AFTER 5 DAYS INCUBATION 11/04/19 14:30 Sputum - Expectorated AFB Smear Concentration - Preliminary 11/04/19 14:30 Sputum - Expectorated Mycobacterial Culture - Preliminary 11/02/19 11:00 Sputum - Expectorated AFB Smear Concentration - Final 11/02/19 11:00 Sputum - Expectorated Mycobacterial Culture - Preliminary 10/30/19 00:15 Sputum - Expectorated Gram Stain - Final 10/30/19 00:15 Sputum - Expectorated Sputum Culture - Final NORMAL RESPIRATORY DAMI 10/30/19 20:10 Urine - Urine Clean Catch Urine Culture - Final Escherichia Coli ASSESSMENT: 84 year old woman with a history of HTN, atrial fib, chronic diastolic heart failure, COPD, pulm HTN, breast cancer and lumpectomy who presented to the ED with progressive weakness, fatigue, dysphagia, loss of appetite, and weight loss Pneumonia Possible chronic atypical Mycobacterial infection E.Coli UTI Dysphagia COPD A. fib HTN D. CHF Pulmonary HTN Hx Breast CA Plan: -Stop abx, received 10 days of rocephin -Follow-up final AFB -Quant TB neg -in haled nebs -esophogram once AFB x 3 neg -c/w bb/dig/pradaxa -holding lasix -pulm eval appreciated
--- NOTE | 2019-11-09 14:19 | PN ---
Progress Note (short form) - Note Progress Note: Hospitalist Medicine Without complaint today. Feeling well. Has been tolerating diet. AFB final (-) x 1, prelim (-) x 2. Still awaiting final cx. Barium esophagram cancelled, as cannot be done until final cx (-) Vitals 11/09/19 10:00 Temperature 97.8 F Pulse Rate 85 Respiratory 22 H Rate Blood Pressure 136/76 Physical Exam general: resting in bed, in NAD. HEENT: NCAT, PERRLA neck: supple cardio: S1, S2 RRR. no r/m/g pulm: +few rhonchi. no accessory m usage. +dry cough abdomen: soft, nontender, nondistended LE: 2+ pulses, no edema neuro: hand outside cutter 2-12 grossly intact Laboratory Tests 11/09/19 11/09/19 05:40 05:40 WBC 5.2 Hgb 10.8 Hct 32.2 L Plt Count 299 Sodium 133 L Potassium 4.5 Chloride 99 Carbon Dioxide 29 Anion Gap 5 L BUN 8.2 Creatinine 0.5 L Est GFR (CKD-EPI)AfAm 101.57 Magnesium 1.8 Microbiology 10/30/19 20:10 Urine - Urine Clean Catch Urine Culture - Final Escherichia Coli 10/30/19 00:15 Sputum - Expectorated Gram Stain - Final 10/30/19 00:15 Sputum - Expectorated Sputum Culture - Final NORMAL RESPIRATORY DAMI 11/02/19 11:00 Sputum - Expectorated AFB Smear Concentration - Final 11/01/19 12:10 Blood - Peripheral Venous Blood Culture - Final NO GROWTH AFTER 5 DAYS INCUBATION 11/01/19 12:10 Blood - Peripheral Venous Blood Culture - Final NO GROWTH AFTER 5 DAYS INCUBATION 11/07/19 11:10 Sputum - Expectorated AFB Smear Concentration - Preliminary 11/07/19 11:10 Sputum - Expectorated Mycobacterial Culture - Preliminary 11/04/19 14:30 Sputum - Expectorated AFB Smear Concentration - Preliminary 11/04/19 14:30 Sputum - Expectorated Mycobacterial Culture - Preliminary 11/02/19 11:00 Sputum - Expectorated Mycobacterial Culture - Preliminary Imaging 10/30/19: CXR: since previous (07/2019), progressive congestive changes with upper lobe infiltrates and some pleural fluid with atelectasis at the right base. there is a large heart, sclerotic knob. prominent david, and fluid in the horizontal fissure. 10/30/19: C-spine CT: no fracture. multilevel degenerative joint dz . partially imaged pulm apices again demonstrate chronic pleural thickening and thickened interstitial changes suggestive of COPD. 10/30/19: Head CT: no CT evidence of acute intracranial path. mild periventricular and subcortical chronic microvascular ischemic chanes are seen. no def interval change from previous 07/07/2019. chronic paranasal sinus disease again noted. 10/31/19: modified barium swallow: normal swallowing study. trial of soft, chopped diet and thin liquid, ensure, magic cup, ensure pudding. 11/08/19: CXR: bilateral effusions with superimposed atelectasis or infiltrate at L base and some atelectasis on right. There may be a RUL infiltrate. old apical disease. 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 #Progressive UL infiltrates possible 2/2 CAP vs. TB #hx COPD, chronic bronchitis -keep on airborne isolation until AFBx3 negative and quantiferon negative -thus far, AFB (-) x3 however await final -quant (-) -completed 10 day-course of ceftriaxone -c/w NC 02, taper to sat > 90% -IS, spiriva, duonebs RQID, nebs PRN -pulm: Dr. Christiansen #Progressive dysphagia -tolerating PO, clear MBS -unable to do barium esophagram until AFB (-) x 3 (final cx) -asp precautions -on protonix -r/o depression; per psych, started on marinol. c/w remeron -GI: Dr. Mensah -Psych: Dr. Gaona #UTI -completed 10 days ceftriaxone -monitor off abx -ucx: E.coli (>100,000) puentes-sensitive #Afib on Xarelto -dose adjusted according to weight -no signs of bleeding -rate controlled w/ Coreg, hold dig per cardio -cardio: Dr. Jules #HTN -c/t hold lasix -c/w coreg #HFpEF -not in exacerbation -Cont. BB, , hold Lasix #F/E/N off IVF continue to follow lytes soft diet, w/ supplements (magic cup, ensure, ensure pudding) #PPX DVT: on xarelto GI: on protonix #Dispo cont'd monitoring on tele SNF upon d/c, will send info once AFB (-) x 3 (final) pre and post on d/c barium esophagram as outpatient
[2019-11-09] MEDS ORDERED: PT OWN MED DRAWER 7, Y5N ONE (22:05)
[2019-11-09] MEDS: MIRTAZAPINE 15 MG TABLET (FP) PO SCH (22:23)
[2019-11-10 07:23] LABS: BASO % 0.7 % (0-2.0); EOS % 4.2 % (0-4.5); HEMATOCRIT 32.4 % (32.4-45.2); HEMOGLOBIN 10.8 GM/dL (10.7-15.3); LYMPH % 11.1 % (8-40); MCHC 33.4 g/dl (32.0-36.0); MEAN PLT VOLUME 7.6 fl (7.5-11.1); MONO % 14.8 % (3.8-10.2); NEUT % 69.2 % (42.8-82.8); PLATELET COUNT 306 K/MM3 (134-434); RBC 3.28 M/mm3 (3.60-5.2); RDW 16.1 % (11.6-15.6); WHITE BLOOD COUNT 4.9 K/mm3 (4.0-10.0)
[2019-11-10] MEDS: ALBUTEROL SO4 2.5/IPRATROPIUM 0.5 INH SOL 3 ML VIAL.NEB. NEB SCH ×3 (07:40→15:50)
[2019-11-10 07:50] LABS: CREATININE 0.6 mg/dL (0.55-1.3); MAGNESIUM 2.2 mg/dL (1.8-2.4); PHOSPHOROUS 4.4 mg/dL (2.5-4.9)
[2019-11-10] MEDS ORDERED: PT OWN MED DRAWER 7, Y5N ONE (08:53)
[2019-11-10] MEDS: PANTOPRAZOLE 40 MG TABLET (FP) PO SCH (09:37)
[2019-11-10] MEDS: DABIGATRAN ETEXILATE MESYLATE 75 MG CAPSULE PO SCH (09:37)
[2019-11-10] MEDS: CARVEDILOL 3.125 MG TABLET (FP) PO SCH (09:37)
[2019-11-10] MEDS: DRONABINOL 2.5 MG CAPSULE PO SCH (09:37)
--- NOTE | 2019-11-10 11:55 | PN ---
Progress Note (short form) - Note Progress Note: Resting in NAD. Some non-productive cough. No acute events overnight. AFB (-) x 3 Intake & Output 11/07/19 11/08/19 11/09/19 11/10/19 23:59 23:59 23:59 23:59 Intake Total 1840 770 660 100 Output Total 300 Balance 1840 770 360 100 Weight 91 lb 3.2 oz 90 lb 8 oz 88 lb 9.6 oz 87 lb 6.4 oz Last Vital Signs Temp Pulse Resp BP Pulse Ox 98 F 77 20 128/64 94 L 11/10/19 06:00 11/10/19 06:00 11/10/19 09:00 11/10/19 06:00 11/10/19 09:00 Active Medications Acetaminophen (Tylenol -) 650 mg PO Q6H PRN PRN Reason: PAIN LEVEL 6-10 Last Admin: 11/07/19 06:56 Dose: 650 mg Albuterol Sulfate (Ventolin 0.083% Nebulizer Soln -) 1 amp NEB Q4H PRN PRN Reason: SHORT OF BREATH/WHEEZING Albuterol/Ipratropium (Duoneb -) 1 amp NEB RQID [facility] Last Admin: 11/09/19 20:45 Dose: 1 amp Benzocaine (Americaine Ointment -) 1 applic [place] PRN PRN PRN Reason: HEMORRHOIDS Last Admin: 11/02/19 22:34 Dose: 1 applic Benzocaine/Menthol (Cepacol Lozenge -) 1 each MM PRN PRN PRN Reason: SORE THROAT Last Admin: 10/31/19 04:39 Dose: 1 each Carvedilol (Coreg -) 3.125 mg PO BID [facility] Last Admin: 11/10/19 09:37 Dose: 3.125 mg Dabigatran (Pradaxa -) 75 mg PO BID [facility] Last Admin: 11/10/19 09:37 Dose: 75 mg Dronabinol (Marinol -) 2.5 mg PO DAILY [facility] Last Admin: 11/10/19 09:37 Dose: 2.5 mg Mirtazapine (Remeron -) 15 mg PO HS [facility] Last Admin: 11/09/19 22:23 Dose: 15 mg Ondansetron HCl (Zofran Injection) 4 mg IVPUSH Q6H PRN PRN Reason: NAUSEA Last Admin: 11/03/19 12:04 Dose: 4 mg Pantoprazole Sodium (Protonix -) 40 mg PO DAILY [facility] Last Admin: 11/10/19 09:37 Dose: 40 mg Tiotropium [place] (Spiriva Respimat) 2 puff IH DAILY [facility] Last Admin: 11/09/19 11:05 Dose: 2 puff Constitutional: Yes: NAD, Thin Eyes: Yes: WNL HENT: Yes: WNL Neck: Yes: WNL Cardiovascular: Yes: Pulse Irregular, S1, S2 Respiratory: Yes: Diminished Gastrointestinal: Yes: Normal Bowel Sounds, Soft Extremities: Yes: WNL Edema: No Labs: Laboratory Results - last 24 hr 11/10/19 11/10/19 05:38 05:38 WBC 4.9 RBC 3.28 L Hgb 10.8 Hct 32.4 MCV 99.0 H MCH 33.0 MCHC 33.4 RDW 16.1 H Plt Count 306 MPV 7.6 Absolute Neuts (auto) 3.4 Neutrophils % 69.2 Lymphocytes % 11.1 Monocytes % 14.8 H Eosinophils % 4.2 Basophils % 0.7 Nucleated RBC % 0 Sodium 132 L Potassium 5.0 Chloride 98 Carbon Dioxide 30 Anion Gap 4 L BUN 9.0 Creatinine 0.6 Est GFR (CKD-EPI)AfAm 95.66 Est GFR (CKD-EPI)NonAf 82.53 Random Glucose 91 Calcium 9.0 Phosphorus 4.4 Magnesium 2.2 Problem List - Problems (1) Failure to thrive Code(s): GMP1746 - Qualifiers: Failure to thrive age range: in adult Qualified Code(s): R62.7 - Adult failure to thrive (3) Diastolic heart failure Code(s): I50.30 - UNSPECIFIED DIASTOLIC (CONGESTIVE) HEART FAILURE Qualifiers: Heart failure chronicity: chronic heart failure (4) Moderate to severe pulmonary hypertension Code(s): I27.20 - PULMONARY HYPERTENSION, UNSPECIFIED (6) Breast cancer Code(s): C50.919 - MALIGNANT NEOPLASM OF UNSP SITE OF UNSPECIFIED FEMALE BREAST Assessment/Plan Failure to Thrive Pneumonia Suspect Chronic Atypical Mycobacterial Infection Hyponatremia corrected Atrial Fibrillation LV Diastolic Dysfunction COPD Chronic Bronchitis h/o Breast Ca R pleural effusion - inhaled bronchodilators - rate control - continue anticoagulation - O2 as needed - AC - DC to SNF Dr Da Silva
[2019-11-10] MEDS: TIOTROPIUM BROMIDE 2.5 MCG (SPIRIVA) RESPIMAT INHALER IH SCH (12:10)
--- NOTE | 2019-11-10 13:38 | PN ---
Progress Note, Physician History of Present Illness: The patient is an 84 year old white female, with a significant past medical history of HTN, Pulmonary HTN, COPD (bronchiectasis; not on home O2), diastolic CHF, Afib (on Coreg, digoxin, ; Pradaxa), Breast CA (s/p lumpectomy), Colitis, Diverticulitis, Chronic UTIs, and Insomnia, who presents to the emergency department with progressively worsening shortness of breath, weakness, and dysphagia. As per patient, over the past month and a half she has been experiencing increasing dysphagia with solids, nausea, shortness of breath, and productive cough. Aid at bedside notes that she has been requiring more assistance lately. Patient has not been eating much and notes 2 recent falls. Patient was advised by her PCP to report to the ED for further evaluation. Pt is concerned she has lost so much weight in the past year. She denies recent fevers, chills, headache or dizziness. She denies recent vomiting, diarrhea or constipation. She denies recent dysuria, frequency, urgency or hematuria. She denies recent chest pain or palpitations. Allergies: Meperidine HCl, Lactose Past surgical history: Appendectomy, cholecystectomy. Social history: Nonsmoker. Denies EtOH use and recreational drug use. Primary Care Physician: Dr. Haines - Current Medication List Current Medications: Active Medications Acetaminophen (Tylenol -) 650 mg PO Q6H PRN PRN Reason: PAIN LEVEL 6-10 Last Admin: 11/07/19 06:56 Dose: 650 mg Albuterol Sulfate (Ventolin 0.083% Nebulizer Soln -) 1 amp NEB Q4H PRN PRN Reason: SHORT OF BREATH/WHEEZING Albuterol/Ipratropium (Duoneb -) 1 amp NEB RQID [facility] Last Admin: 11/10/19 11:25 Dose: 1 amp Benzocaine (Americaine Ointment -) 1 applic [place] PRN PRN PRN Reason: HEMORRHOIDS Last Admin: 11/02/19 22:34 Dose: 1 applic Benzocaine/Menthol (Cepacol Lozenge -) 1 each MM PRN PRN PRN Reason: SORE THROAT Last Admin: 10/31/19 04:39 Dose: 1 each Carvedilol (Coreg -) 3.125 mg PO BID [facility] Last Admin: 01/10/20 09:37 Dose: 3.125 mg Dabigatran (Pradaxa -) 75 mg PO BID [facility] Last Admin: 11/10/19 09:37 Dose: 75 mg Dronabinol (Marinol -) 2.5 mg PO DAILY [facility] Last Admin: 11/10/19 09:37 Dose: 2.5 mg Mirtazapine (Remeron -) 15 mg PO HS [facility] Last Admin: 11/09/19 22:23 Dose: 15 mg Ondansetron HCl (Zofran Injection) 4 mg IVPUSH Q6H PRN PRN Reason: NAUSEA Last Admin: 11/03/19 12:04 Dose: 4 mg Pantoprazole Sodium (Protonix -) 40 mg PO DAILY [facility] Last Admin: 11/10/19 09:37 Dose: 40 mg Tiotropium [place] (Spiriva Respimat) 2 puff IH DAILY [facility] Last Admin: 11/10/19 12:10 Dose: 2 puff - Objective Vital Signs: Vital Signs Temperature 98 F 11/10/19 06:00 Pulse Rate 77 11/10/19 06:00 Respiratory Rate 20 11/10/19 09:00 Blood Pressure 128/64 11/10/19 06:00 O2 Sat by Pulse Oximetry (%) 94 L 11/10/19 09:00 Eyes: Yes: WNL, Conjunctiva Clear, EOM Intact HENT: Yes: WNL, Atraumatic, Normocephalic Neck: Yes: WNL, Supple, Trachea Midline Cardiovascular: Yes: Pulse Irregular Respiratory: Yes: WNL, Regular, CTA Bilaterally Gastrointestinal: Yes: WNL, Normal Bowel Sounds Genitourinary: Yes: WNL Musculoskeletal: Yes: WNL Extremities: Yes: WNL Edema: No Integumentary: Yes: WNL Neurological: Yes: WNL, Alert, Oriented ...Motor Strength: WNL Psychiatric: Yes: WNL Labs: CBC, BMP 11/10/19 05:38 11/10/19 05:38 Assessment/Plan - Problems (1) Acute on chronic diastolic CHF (congestive heart failure) Assessment/Plan: On carvedilol. +JVD CXR: atelectasis; "CT may be of help" (earlier CT showed bronchiectasis) F/u BUN/Cr, electrolytes, dialy weight, Is and Os. Code(s): I50.33 - ACUTE ON CHRONIC DIASTOLIC (CONGESTIVE) HEART FAILURE (2) COPD (chronic obstructive pulmonary disease) Assessment/Plan: CT: bronchiectasis. moderately severe pulmonary HTN. F/u with principal mechanical engineer. Code(s): J44.9 - CHRONIC OBSTRUCTIVE PULMONARY DISEASE, UNSPECIFIED (3) Dysphagia Code(s): R13.10 - DYSPHAGIA, UNSPECIFIED Qualifiers: Dysphagia type: unspecified Qualified Code(s): R13.10 - Dysphagia, unspecified (4) Failure to thrive Code(s): [id number] - Qualifiers: Failure to thrive age range: in adult Qualified Code(s): R62.7 - Adult failure to thrive (5) Atrial fibrillation Assessment/Plan: continue carvedilol for HR and BP control. On Pradaxa for anticoagulation. F/u EKG, telemetry. TSH WNL (11/19). K and Mg low: replete. (6) Pulmonary HTN Assessment/Plan: moderately severe pulmonary HTN by ECHO. Bronchiectasis O2, bronchodilators per principal mechanical engineer. Code(s): I27.20 - PULMONARY HYPERTENSION, UNSPECIFIED (7) Hypokalemia Assessment/Plan: repleted, and keep 4.0-4.5 Code(s): E87.6 - HYPOKALEMIA (8) Hypomagnesemia Assessment/Plan: repleted x 2 days: now WNL; keep level 2.0-2.4 Code(s): E83.42 - HYPOMAGNESEMIA (9) PTB (pulmonary tuberculosis) Code(s): A15.0 - TUBERCULOSIS OF LUNG (10) Weight loss Code(s): R63.4 - ABNORMAL WEIGHT LOSS
--- NOTE | 2019-11-10 14:23 | PN ---
Progress Note (short form) - Note Progress Note: No new complaints she had 3 sputum negative for AFB. Vital Signs Period Temp Pulse Resp BP Sys/Brewer Pulse Ox Last 24 Hr 97.6 F-98 F 74-85 18-20 105-128/44-64 94-94 Patient is comfortable HEENT normal Neck supple no JVD Lungs clear no wheezing Abdomen nontender no organomegaly bowel sounds normal Extremities no edema no cyanosis normal pulses Neurologically he is alert awake oriented, nonfocal Skin no rash noted CBC, BMP 11/10/19 05:38 11/10/19 05:38 10/30/19: CXR: since previous (07/2019), progressive congestive changes with upper lobe infiltrates and some pleural fluid with atelectasis at the right base. there is a large heart, sclerotic knob. prominent david, and fluid in the horizontal fissure. 10/30/19: C-spine CT: no fracture. multilevel degenerative joint dz . partially imaged pulm apices again demonstrate chronic pleural thickening and thickened interstitial changes suggestive of COPD. 10/30/19: Head CT: no CT evidence of acute intracranial path. mild periventricular and subcortical chronic microvascular ischemic chanes are seen. no def interval change from previous 07/07/2019. chronic paranasal sinus disease again noted. 10/31/19: modified barium swallow: normal swallowing study. trial of soft, chopped diet and thin liquid, ensure, magic cup, ensure pudding. 11/08/19: CXR: bilateral effusions with superimposed atelectasis or infiltrate at L base and some atelectasis on right. There may be a RUL infiltrate. old apical disease. 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 #Progressive UL infiltrates possible 2/2 CAP vs. TB #hx COPD, chronic bronchitis -keep on airborne isolation until AFBx3 negative and quantiferon negative -thus far, AFB (-) Are negative x3 -quant (-) -completed 10 day-course of ceftriaxone -c/w NC 02, taper to sat > 90% -IS, spiriva, duonebs RQID, nebs PRN -pulm: Dr. Christiansen #Progressive dysphagia -tolerating PO, clear MBS -unable to do barium esophagram until AFB (-) x 3 (final cx) -asp precautions -on protonix -r/o depression; per psych, started on marinol. c/w remeron -GI: Dr. Mensah -Psych: Dr. Gaona #UTI -completed 10 days ceftriaxone -monitor off abx -ucx: E.coli (>100,000) puentes-sensitive #Afib on Xarelto -dose adjusted according to weight -no signs of bleeding -rate controlled w/ Coreg, hold dig per cardio -cardio: Dr. Jules #HTN -c/t hold lasix -c/w coreg #HFpEF -not in exacerbation -Cont. BB, , hold Lasix #F/E/N off IVF continue to follow lytes soft diet, w/ supplements (magic cup, ensure, ensure pudding) #PPX DVT: on xarelto GI: on protonix #[facility] Discussed with the patient resident in detail reviewed patient's note with resident agree with all the findings Visit type - Emergency Visit Emergency Visit: Yes ED Registration Date: 10/30/19 Care time: The patient presented to the Emergency Department on the above date and was hospitalized for further evaluation of their emergent condition. - New Patient This patient is new to me today: Yes Date on this admission: 11/10/19 - Critical Care Critical Care patient: No - Discharge Referral Referred to [facility] No
[2019-11-10 15:53] VITALS: BP 148/70; PULSE 85; TEMP 98.2
--- NOTE | 2019-11-10 15:56 | DS ---
Physical Exam: SUBJECTIVE: Patient seen and examined at bedside. Feeling well. Has been ambulating more frequently. AFB (-) x 3 finalized. D/w lab and official report in computer. OBJECTIVE: Vital Signs Period Temp Pulse Resp BP Sys/Brewer Pulse Ox Last 24 Hr 97.6 F-98 F 74-85 18-20 102-128/44-64 94-94 Physical Exam general: resting in bed, in NAD. HEENT: NCAT, PERRLA neck: supple cardio: S1, S2 RRR. no r/m/g pulm: +few rhonchi. no accessory m usage. +dry cough abdomen: soft, nontender, nondistended LE: 2+ pulses, no edema neuro: transport specialist 2-12 grossly intact LABS Laboratory Results - last 24 hr 11/10/19 11/10/19 05:38 05:38 WBC 4.9 RBC 3.28 L Hgb 10.8 Hct 32.4 MCV 99.0 H MCH 33.0 MCHC 33.4 RDW 16.1 H Plt Count 306 MPV 7.6 Absolute Neuts (auto) 3.4 Neutrophils % 69.2 Lymphocytes % 11.1 Monocytes % 14.8 H Eosinophils % 4.2 Basophils % 0.7 Nucleated RBC % 0 Sodium 132 L Potassium 5.0 Chloride 98 Carbon Dioxide 30 Anion Gap 4 L BUN 9.0 Creatinine 0.6 Est GFR (CKD-EPI)AfAm 95.66 Est GFR (CKD-EPI)NonAf 82.53 Random Glucose 91 Calcium 9.0 Phosphorus 4.4 Magnesium 2.2 10/30/19 10/31/19 11/02/19 17:20 05:20 08:40 WBC 10.8 H 5.9 RBC Hgb Hct MCV 100.4 H 98.9 H 100.4 H RDW Plt Count 331 274 11/08/19 11/09/19 11/10/19 05:38 05:40 05:38 WBC 5.0 5.2 4.9 RBC 3.25 L 3.28 L Hgb 10.8 Hct 32.4 MCV 98.9 H RDW 16.6 H 16.4 H 16.1 H Plt Count 281 306 10/30/19 10/31/19 11/01/19 17:20 20:05 05:15 BUN Creatinine Calcium Phosphorus Magnesium AST 13 L 12 L ALT < 6 L < 6 L CK-MB (CK-2) < 1.0 Troponin I < 0.02 < 0.02 B-Natriuretic Peptide Albumin 2.4 L 2.1 L 11/02/19 11/03/19 11/07/19 08:40 05:25 05:10 BUN 9.3 Creatinine 0.5 L Calcium 7.7 L Phosphorus 2.4 L Magnesium 1.7 L 1.7 L AST ALT CK-MB (CK-2) Troponin I B-Natriuretic Peptide 3952.9 H Albumin 11/08/19 11/09/19 05:38 05:40 BUN 8.2 Creatinine 0.5 L Calcium 8.4 L Phosphorus Magnesium AST ALT CK-MB (CK-2) Troponin I B-Natriuretic Peptide Albumin 10/30/19 20:10 Urine Nitrite Positive H Urine Bilirubin Negative Urine Urobilinogen 1.0 Ur Leukocyte Esterase 1+ H Urine WBC (Auto) 17 Urine RBC (Auto) 3-5 Urine Casts (Auto) 3 10/31/19 20:05 Digoxin 0.51 L 10/31/19 11/03/19 01:50 12:10 TB Test (QFT) Nil 0.03 0.36 TB Test (QFT) Mitogen 4.11 6.16 TB Test (QFT) Antigen 0.04 0.48 TB Test (QFT) Negative Negative TB Positive Criteria Microbiology 10/30/19 20:10 Urine - Urine Clean Catch Urine Culture - Final Escherichia Coli 10/30/19 00:15 Sputum - Expectorated Gram Stain - Final 10/30/19 00:15 Sputum - Expectorated Sputum Culture - Final NORMAL RESPIRATORY DAMI 11/07/19 11:10 Sputum - Expectorated AFB Smear Concentration - Final 11/04/19 14:30 Sputum - Expectorated AFB Smear Concentration - Final 11/02/19 11:00 Sputum - Expectorated AFB Smear Concentration - Final 11/01/19 12:10 Blood - Peripheral Venous Blood Culture - Final NO GROWTH AFTER 5 DAYS INCUBATION 11/01/19 12:10 Blood - Peripheral Venous Blood Culture - Final NO GROWTH AFTER 5 DAYS INCUBATION 11/07/19 11:10 Sputum - Expectorated Mycobacterial Culture - Preliminary 11/04/19 14:30 Sputum - Expectorated Mycobacterial Culture - Preliminary 11/02/19 11:00 Sputum - Expectorated Mycobacterial Culture - Preliminary HOSPITAL COURSE: Date of Admission:10/30/19 Date of Discharge: 11/10/19 84 year old F with COPD not on O2, Afib on Xarelto, pulm HTN, HFpEF, presents with FTT, chest CT findings suspicious for TB/non-TB mycobacterium, placed in airborne isolation, empirically being treated for CAP. #Progressive UL infiltrates possible 2/2 CAP vs. TB #hx COPD, chronic bronchitis -has d/c airborne isolation as AFBx3 negative and quantiferon negative -completed 10 day-course of ceftriaxone -c/w NC 02, taper to sat > 90% -IS, spiriva, duonebs RQID, nebs PRN #Progressive dysphagia -tolerating PO, clear MBS -will need GI f/u and barium esophagram as outpatient -asp precautions -on protonix -r/o depression; per psych, started on marinol. c/w remeron #UTI -completed 10 days ceftriaxone -monitor off abx -ucx: E.coli (>100,000) puentes-sensitive #Afib on pradaxa -dose adjusted according to weight -no signs of bleeding -rate controlled w/ Coreg, hold dig per cardio #HTN -will c/w lasix on d/c; no longer dry -c/w coreg #HFpEF -not in exacerbation -Cont. BB, , lasix #diet soft diet, w/ supplements (magic cup, ensure, ensure pudding) Minutes to complete discharge: 45 Discharge Summary Problems reviewed: Yes Reason For Visit: DYSPHAGIA Current Active Problems Acute exacerbation of CHF (congestive heart failure) (Acute) Atrial fibrillation (Acute) Atypical chest pain (Acute) Chest pain at rest (Acute) Dysphagia (Acute) Elevated liver enzymes (Acute) Failure to thrive (Acute) Frequent falls (Acute) Frequent loose stools (Acute) Healthcare-associated pneumonia (Acute) Hypokalemia (Acute) Hypomagnesemia (Acute) Leukocytosis (Acute) Moderate to severe pulmonary hypertension (Acute) PTB (pulmonary tuberculosis) (Acute) Pulmonary HTN (Acute) Weight loss (Acute) lung nodules (Acute) COPD (chronic obstructive pulmonary disease) (Chronic) Diastolic heart failure (Chronic) Condition: Stable - Instructions Diet, Activity, Other Instructions: You were initially in the hospital for pneumonia in the upper portions of your lung. You were treated with antibiotics and completed the course. You were ruled out for Tuberculosis while you were in the hospital - your 3 AFB sputum smears were negative and your quantiferon test was also negative. It has been ruled out. While you were here, you were also seen for dysphagia and trouble swallowing. This likely caused your weight loss. You improved and are being sent to a facility to continue strengthening and rehabilitation. Medications Please take the following medications upon your discharge: 1. duonebs 1 amp every 6 hours, scheduled - for COPD 2. ventolin 1 amp every 4 hours, as needed - for COPD 3. protonix 40 mg daily to decrease stomach acidity 4. marinol 2.5mg daily to help your appetite You may continue your other home medications, but note the following: Your PRADAXA DOSE WAS CHANGED TO 75mg TWICE A DAY INSTEAD OF 150mg TWICE A DAY Your DIGOXIN HAS BEEN DISCONTINUED BY CARDIOLOGY. Testing You need to have a barium esophagram done as an outpatient to check your full swallowing You were seen by a speech and swallow specialist in the hospital and cleared for a soft diet with ensure pudding Follow up appointments Please follow with the following doctors upon your discharge: -your doctor at your rehab facility- this week, as well as your primary care provider, Dr. Haines -Dr. Stanley, a pulmonary doctor - this week -Dr. Kirk Lobato - a GI doctor - this week -Dr. Campos, a marketing recruiter- this week Referrals: Alpesh Lobato DO [Staff Physician] - 1 Week Fercho Haines MD [Primary Care Provider] - 1 Week Serafin Campos MD [Staff Physician] - 1 Week Alfonso Stanley MD, MD [Staff Physician] - 1 Week Disposition: HOME - Home Medications Comprehensive Discharge Medication List: Ambulatory Orders Carvedilol [Coreg -] 3.125 mg PO BID 07/07/19 Fluticasone Prop 0.05% Nasal [Flonase -] 1 - 2 spray NS DAILY PRN 07/07/19 Umeclidinium [place] [Incruse Ellipta] 62.5 mcg IH DAILY 07/07/19 Furosemide 20 mg PO DAILY 10/30/19 Mirtazapine 15 mg PO DAILY 10/30/19 Albuterol 0.083% Nebulizer [place] [Ventolin 0.083% Nebulizer Soln -] 1 amp NEB Q4H PRN amp 11/10/19 Albuterol 2.5/Ipratropium 0.5 [Duoneb -] 1 amp NEB RQID amp 11/10/19 Dabigatran Etexilate Mesylate [Pradaxa -] 75 mg PO BID capsule 11/10/19 Dronabinol [Marinol -] 2.5 mg PO DAILY capsule MDD 2.5mg 11/10/19 Pantoprazole Sodium [Protonix -] 40 mg PO DAILY tablet.ec 11/10/19 This patient is new to me today: No Emergency Visit: No Critical Care patient: No - Discharge Referral Referred to [facility] No
== END 2019-11-10 16:53 | disposition home health service (06) | DRG 867 ==
LOC: JER 16:04 → JERBED 18:42 → J4W 10-31 15:55
PROVIDERS: ADMIT Internal Medicine; ATTEND Internal Medicine
DX: A31.9 Mycobacterial infection, unspecified (principal); J18.9 Pneumonia, unspecified organism; E43 Unspecified severe protein-calorie malnutrition; R64 Cachexia; E46 Unspecified protein-calorie malnutrition; I50.32 Chronic diastolic (congestive) heart failure; E87.1 Hypo-osmolality and hyponatremia; N39.0 Urinary tract infection, site not specified; R62.7 Adult failure to thrive; R13.10 Dysphagia, unspecified; E88.09 Other disorders of plasma-protein metabolism, not elsewhere classified; J44.9 Chronic obstructive pulmonary disease, unspecified; I48.91 Unspecified atrial fibrillation; I10 Essential (primary) hypertension; I27.20 Pulmonary hypertension, unspecified; E87.6 Hypokalemia; E83.42 Hypomagnesemia; J42 Unspecified chronic bronchitis
CPT/HCPCS: 36415; 70450-TC; 71045-TC-FY; 72125-TC; 74230-TC-FY; 80048; 80053; 80076; 80162; 81003; 82550; 82553; 83735; 83880; 84100; 84484; 85025; 86480; 87040; 87070; 87086; 87116; 87186; 87205; 87206; 88300-TC; 92611-GN; 93005; 93010; 94640; 94761; 97116-GP; 97161-GP; 99285-25; J0131; J7030